=== PATIENT | female | born 1935 | race Caucasian/White ===

== ENCOUNTER → 2017-07-28 | Outpatient (CLI) | payer MEDICARE, BC ==
--- NOTE | 2017-07-28 16:03 | XR ---
Lumbosacral spine HISTORY: Low back pain radiating down legs 5 views of the lumbosacral spine There is no spondylolysis. Lumbar vertebral bodies show preserved height. Anterolisthesis grade 1 L4- 5. Sclerosis present in the posterior elements lumbar spine compatible with facet arthropathy. Loss o f disc height present at the intervertebral levels. Multilevel vacuum phenomenon also present. Bone m ineralization is reduced. Atherosclerotic calcifications present within the abdominal aorta. IMPRESSION: Degenerative disc disease, facet arthropathy, osteopenia.
== END | disposition home or self-care (01) ==
LOC: RADXRMAIN 13:36
PROVIDERS: ATTEND Internal Medicine Geriatric Medicine
DX: M51.37 Other intervertebral disc degeneration, lumbosacral region (principal); M46.87 Other specified inflammatory spondylopathies, lumbosacral region; M85.88 Other specified disorders of bone density and structure, other site
CPT/HCPCS: 72110

== ENCOUNTER → 2017-08-05 | Outpatient (CLI) | payer MEDICARE, BC ==
--- NOTE | 2017-08-05 23:35 | MR ---
EXAMINATION TYPE: MR lumbar spine wo/w con DATE OF EXAM: 08/05/2017 COMPARISON: NONE HISTORY: 82-year-old female Spinal stenosis, Low back pain Technique: Multiplanar, multisequence images of the lumbar spine were obtained before and after admin istration of 7.5 mL intravenous Gadavist gadolinium contrast. FINDINGS: Vertebral body heights are preserved. Mild heterogeneity of marrow signal without bone marrow replace ment. There is hypertrophic facet arthropathy throughout and moderate to severe disc degenerative change as well characterized by disc desiccation, narrowing, and diffuse bulging. Vacuum phenomenon at L5-ches t, L2-L3, and within the lower thoracic spine as well. Ligamentum flavum thickening is also present as well as a component of mild congenital canal stenosis in the mid to lower lumbar spine with AP canal dimension of 1.2 cm. There is grade 1 anterolisthesis at L4-L5. At T11-T12, there is ligamentum flavum thickening and central disc extrusion with some inferior migra tion of disc material. This results in mild narrowing of the spinal canal with abutment and slight in dentation of the ventral cord. At T12-L1, there is broad-based posterior disc protrusion with ligamentum flavum thickening and promi nent dorsal epidural fat. Changes result in mild spinal canal stenosis with mild to moderate left and mild right neural foraminal stenosis. At L1-L2, no spinal canal or foraminal stenosis. At L2-L3, there is diffuse disc bulge with congenital canal narrowing, ligamentum flavum thickening, facet arthropathy, and prominent dorsal epidural fat. Changes result in moderate narrowing of the spi nal canal with mild bilateral neural foraminal stenosis. At L3-L4, there is diffuse disc bulge with hypertrophic facet arthropathy, ligamentum flavum thickeni ng, congenital canal narrowing, and diffuse disc bulging. Changes result in mild to moderate spinal c anal narrowing and minimal bilateral inferior neural foraminal stenosis. At L4-L5, there is hypertrophic facet arthropathy with ligamentum flavum thickening, disc bulge, and grade 1 anterolisthesis. This results in right lateral recess stenosis with a very tight space along the right L5 and additional right-sided cauda equina nerve roots. There is mild to moderate spinal ca nal stenosis with minimal bilateral inferior foraminal narrowing. At L5-S1, there is bulging disc with hypertrophic facet arthropathy and ligamentum flavum thickening. Changes involved in moderate left and [id number] right neuroforaminal stenosis. In combination with prominent dorsal epidural fat, there is moderate to severe narrowing of the thecal sac. No abnormal enhancement within the spinal canal. No prevertebral paravertebral soft tissue abnormality seen. IMPRESSION: 1. Moderate to severe multilevel degenerative disc disease with hypertrophic facet arthropathy and li gamentum flavum thickening. 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 2. Changes result in overall moderate spinal canal stenosis at L2-L3 and mild to moderate at L3-L4 an d L4-L5. At L5-S1, there is also prominent dorsal epidural fat causing moderate to severe narrowing o f the thecal sac. 3. Right lateral recess stenosis at L4-L5 impinging the traversing right L5 and other adjacent cauda equina nerve roots at this level. 4. Variable mild to moderate neuroforaminal stenoses as outlined above. 5. Additional prominent disc herniations at T11-T12 and T12-L1 mildly narrowing the spinal canal.
== END | disposition home or self-care (01) ==
LOC: RADMRIMAIN 18:28
PROVIDERS: ATTEND Internal Medicine Geriatric Medicine
DX: M48.061 Spinal stenosis, lumbar region without neurogenic claudication (principal); M51.25 Other intervertebral disc displacement, thoracolumbar region; M51.36 Other intervertebral disc degeneration, lumbar region; M46.96 Unspecified inflammatory spondylopathy, lumbar region; M43.16 Spondylolisthesis, lumbar region
CPT/HCPCS: 72158; A9581

== ENCOUNTER → 2018-01-19 | Outpatient (CLI) | payer MEDICARE, BC ==
[2018-01-19 14:54] LABS: Basophils # (A) 0.1 k/uL (0-0.2); Basophils % (A) 1 %; Eosinophils # (A) 0.2 k/uL (0-0.7); Eosinophils % (A) 2 %; HGB 14.4 gm/dL (11.4-16.0); Lymphocytes # (A) 2.6 k/uL (1.0-4.8); Lymphocytes % (A) 32 %; MCH 31.4 pg (25.0-35.0); MCHC 31.9 g/dL (31.0-37.0); MCV 98.4 fL (80.0-100.0); Mean Platelet Volume 6.7; Monocytes # (A) 0.6 k/uL (0-1.0); Monocytes % (A) 7 %; Neutrophils # (A) 4.6 k/uL (1.3-7.7); Neutrophils % (A) 57 %; Platelet Count 310 k/uL (150-450); RBC 4.58 m/uL (3.80-5.40); RDW 12.7 % (11.5-15.5); WBC 8.1 k/uL (3.8-10.6)
[2018-01-19 15:13] LABS: Calcium 9.7 mg/dL (8.4-10.2); Potassium 4.5 mmol/L (3.5-5.1)
[2018-01-19 15:23] LABS: Prothrombin Time 10.3 sec (9.0-12.0)
--- NOTE | 2018-01-19 15:25 | XR ---
EXAMINATION TYPE: XR chest 2V DATE OF EXAM: 01/19/2018 COMPARISON: NONE HISTORY: Preoperative evaluation. TECHNIQUE: Frontal and lateral views of the chest are obtained. FINDINGS: There is no focal air space opacity, pleural effusion, or pneumothorax seen. The cardiac silhouette size is upper limits of normal. The osseous structures are intact. Mild multilevel degen erative changes of the thoracic spine are noted. Mild degenerative changes of the glenohumeral joints and acromio clavicular joints are also seen. There is tortuosity of the descending thoracic aorta no stalin. Bilateral minimal apical pleural thickening. IMPRESSION: No acute cardiopulmonary process.
== END | disposition home or self-care (01) ==
LOC: LABPAT 14:21
PROVIDERS: ATTEND Orthopaedic Surgery Orthopaedic Surgery of the Spine
DX: Z01.818 Encounter for other preprocedural examination (principal); M48.07 Spinal stenosis, lumbosacral region; Z79.01 Long term (current) use of anticoagulants; Z01.812 Encounter for preprocedural laboratory examination
CPT/HCPCS: 36415; 71046; 80048; 85025; 85610; 85730; 87070

== ENCOUNTER → 2018-01-25 | Outpatient (CLI) | payer MEDICARE, BC | END | disposition home or self-care (01) | LOC: LABPAT 11:05 | PROVIDERS: ATTEND Orthopaedic Surgery Orthopaedic Surgery of the Spine | DX: Z01.812 Encounter for preprocedural laboratory examination (principal); M48.07 Spinal stenosis, lumbosacral region; Z79.01 Long term (current) use of anticoagulants | CPT/HCPCS: 36415; 86850; 86900; 86901 ==

== ENCOUNTER 2018-02-03 08:57 | Inpatient (IN) | payer MEDICARE, BC ==
[2018-02-02 09:29] VITALS: BMI 33.8
[~2018-02-03 08:57] MED LIST: BACITRACIN 50,000 UNIT, POLYMYXIN B 500,000 UNIT in SODIUM CHLORIDE 0.9% IRRIGATIO 1,00... IRRIGATION ONE; DEXAMETHASONE SOD PHOSPHATE 10 MG/ML 1 ML VIAL IV ONE; MORPHINE SULFATE 2 MG/ML SYRINGE IV PRN; ONDANSETRON 4 MG/2 ML VIAL IVP ONE; ONDANSETRON 4 MG/2 ML VIAL IVP PRN; ceFAZolin IN SWFI 2 GM/20 ML SYRINGE IVP ONE
[2018-02-03] MEDS ORDERED: LIDOCAINE 1% 20 ML VIAL (10MG/ML) FOR IV START INTRADERMA ONE (09:55)
[2018-02-03] MEDS: LACTATED RINGERS 1,000 ML IV SCH ×2 (09:55→21:57)
[2018-02-03] MEDS ORDERED: fentaNYL (PF) 50 MCG/ML 2 ML AMP ONE (12:33)
[2018-02-03] MEDS ORDERED: PROPOFOL 10 MG/ML 20 ML VIAL IV ONE (12:33)
[2018-02-03] MEDS ORDERED: SUCCINYLCHOLINE CHLORIDE 100 MG/5 ML SYR IV ONE (12:33)
[2018-02-03] MEDS ORDERED: PHENYLEPHRINE-0.9% NACL SYG 1 MG/10 ML SYRINGE ONE (12:33)
[2018-02-03] MEDS ORDERED: HEPARIN SODIUM,PORCINE 10,000 UNIT/ML 1 ML VIAL ONE (12:33)
[2018-02-03] MEDS ORDERED: SODIUM CHLORIDE 0.9% IRRIG 1,000 ML BTL IRRIGATION ONE (12:33)
[2018-02-03] MEDS ORDERED: MIDAZOLAM 2 MG/2 ML VIAL ONE (12:33)
[2018-02-03] MEDS ORDERED: ePHEDrine SULFATE/0.9% NACL/PF 50 MG/5 ML SYRINGE IV ONE (12:33)
[2018-02-03] MEDS ORDERED: LIDOCAINE 1% INJ 10MG/ML (20 ML MDV) ONE (12:33)
[2018-02-03] MEDS ORDERED: LIDOCAINE 0.5% (PF) 5 MG/ML (50 ML SDV) SQ ONE (12:55)
[2018-02-03] MEDS ORDERED: GELATIN SPONGE,ABSORB (LARGE) 1 EACH SPONGE TOPICAL ONE (12:55)
[2018-02-03] MEDS ORDERED: THROMBIN (BOVINE) 5,000 UNIT VIAL TOPICAL ONE (12:55)
[2018-02-03] MEDS ORDERED: LACTATED RINGERS 1,000 ML IV ONE ×2 (14:07→15:26)
[2018-02-03] MEDS ORDERED: ALPRAZolam 0.25 MG TAB PO PRN (16:14)
[2018-02-03] MEDS ORDERED: BACLOFEN 10 MG TAB PO PRN (16:14)
[2018-02-03] MEDS ORDERED: TEMAZEPAM 15 MG CAP PO PRN (16:14)
[2018-02-03] MEDS: HYDROmorphone 0.5 MG/0.5 ML SYRINGE IVP PRN ×4 (16:14→22:03)
[2018-02-03] MEDS ORDERED: MAGNESIUM HYDROXIDE 2,400 MG/10 ML CUP PO PRN (16:15)
[2018-02-03] MEDS ORDERED: BENZOCAINE/MENTHOL LOZENG 1 EACH LOZENGE MUCOUS MEM PRN (16:15)
[2018-02-03] MEDS ORDERED: HYDROmorphone 0.5 MG/0.5 ML SYRINGE IVP PRN (16:15)
[2018-02-03] MEDS ORDERED: ONDANSETRON 4 MG/2 ML VIAL IVP PRN (16:16)
[2018-02-03] MEDS ORDERED: diphenhydrAMINE 50 MG/ML 1 ML VIAL IVP ONE (16:26)
--- NOTE | 2018-02-03 16:28 | P.OP ---
Date of Procedure: 02/03/18 Preoperative Diagnosis: Spondylolisthesis L4 5, spinal stenosis L4 5 L5-S1, degenerative disc disease, neurogenic claudication, lower extremity radiculopathy, low back pain Postoperative Diagnosis: Same Anesthesia: GETA Pathology: none sent Condition: stable Disposition: PACU Description of Procedure: DESCRIPTION OF PROCEDURE(S): BRIEF OPERATIVE NOTE Preoperative Diagnosis: Postoperative Diagnosis: Procedure: Laminectomy and decompression L4 5 L5-S1 Minimally invasive Posterior lateral decompression and fusion with facet fusion L4 5 L5-S1 Local autogenous bone grafting Harvesting of bone marrow aspirate for supplementation of the local autogenous bone graft and bone graft extenders Use of Cell Saver Use of bone graft extenders Surgeon: Dr. Todd Senior It Specialist: Terry BOWEN who is present throughout the entire the case persistence during positioning, dissection, exposure, visualization, and all crucial elements of the case as well as closure. Anesthesia: General anesthesia Estimated blood loss:Approximately 450 mL with 145 given back through Cell Saver Complications: None apparent Components implanted: K2 minimally invasive [place] pedicle screws with 6.5 mm screws and 2 rods with 1 osteogram amp sponge and DBX bone fibers to supplemental local autogenous and bone marrow aspirate Disposition: To recovery room in good stable condition. OPERATIVE INDICATIONS The patient has had long-standing issues in their lower back and lower extremities. she is found have spondylolisthesis with severe spinal stenosis L4 5 and L5-S1 with significant degenerative disc disease facet arthrosis. These findings correlated well with her low back and lower extremity symptoms. She is having worsening of her symptoms despite aggressive conservative care. The patient has been through conservative treatment. We discussed various treatment options including surgery, and the patient wishes to proceed with surgery We discussed the risk, patient's alternatives and benefits of surgery including but not limited to, risk of bleeding risk of infection, risk of need for further surgery, risk of decreased, loss of motion, muscle function, malunion nonunion, hardware failure, nerve damage, paralysis, heart attack, blindness and . OPERATIVE SUMMARY After discussing all the risks, patient alternatives and benefits at length, the patient elected to proceed with surgical intervention, signed informed consent, and presented for their procedure. The patient was seen and examined in the preoperative holding area and the surgical site was marked. The patient was given antibiotics and brought to the operating room. The patient was sedated and intubated by anesthesia in standard fashion. The patient was positioned on to the operating room table in a prone position on the appropriate frame which was well-padded and well molded. We were careful to pad any bony prominences and pressure points. We were careful to maintain the patient's cervical spine and good neutral alignment and position throughout. The patient was prepped and draped in a normal standard fashion. An appropriate timeout and keystone protocol performed. We were able to proceed with the surgery. The local wound area was infiltrated with local anesthetic. I was able utilize C-arm guidance to establish appropriate position over the pedicles bilaterally at the appropriate levels at L4-L5 and S1 . With the appropriate levels confirmed was able to make small stab incisions over the appropriate pedicle sites bilaterally. Utilizing C-arm in his house able to establish a Jamshidi needle over the lateral aspect of the pedicle and advanced the trocar into the pedicle being careful not to breech superiorly inferiorly medially or laterally. Position was confirmed regularly with AP and lateral images on C-arm. at L4 on the right I aspirated bone marrow aspirate approximately 20 mL to supplement the bone graft later in the case. I was able to establish the trocar into the pedicle appropriately into the posterior aspect of the vertebral body bilaterally at the appropriate levels. This was done at each of the pedicle positions and each of the vertebrae. I was able place the guidewire into the trocar and into the vertebral body appropriately under C-arm guidance. Dissection was taken down over the wire to the appropriate starting position for the screw placed. The appropriate length screw was chosen, threaded over the guidewire and screwed appropriately into the pedicle and vertebral body under C-arm guidance in excellent alignment and position with good bony purchase. This is done at each of the screw sites at the appropriate levels at L4-L5 and S1 . the screw at L5 on the right showed some nerve stimulation while we're testing the screws with a name neuro monitor. I was able to visually inspect the screw and I did not see any breech. I removed the screw in the screw hole itself seemed to be intact. Despite this however the screw was getting stimulation and he decided to remove the L5 screw on the right. I feel that there is good stability with the remainder the construct for her fusion procedure with the screws at L4 bilaterally L5-S1 left and S1 bilaterally. With the screws intact I extended the incision to connect the screw hole sites on the most symptomatic side on the right . I dissected down to establish access over the pars and lamina to the base of the spinous process. I was able to expose the facet joint. The capsule the facet was taken down and showed some facet arthrosis at the joint. I was able to use a combination of curettes and Kerrison rongeurs and a high-speed drill to take down the facet joint and do a facetectomy. Partial laminectomy was also performed. I was able get excellent foraminal decompression and central decompression with undermining across midline to perform a laminectomy centrally and contralaterally. As able get good central decompression. this was done at L4 5 and L5-S1. The ligamentum flavum was taken down to further decompress centrally and at bilateral neural foramen. I was able to expose the disc space and visualize the traversing nerve root. I was able get good decompression L4 5 and L5-S1. It was difficult to access the disc space at both L4 5 and L5-S1. There is some anatomic changes which made it difficult to access the disc and I felt that the dural was somewhat friable and somewhat vulnerable and I felt that pursuing the interbody procedure May but the dura and other neurologic structures at risk. I decided to forego the interbody device. This was done at L4 5 and L5-S1. The wound was copiously irrigated and suctioned dry. There is no evidence of any dural tear or leak. I With the hardware intact, intraoperative C-arm imaging was again taken which showed good alignment and position of the hardware at the appropriate levels at L4-L5 and S1 . We were then able to measure, contour and place the rods and appropriate hardware bilaterally. I was able to place capcrews, tighten them down, and torque them with the torque screwdriver appropriately. With this intact I was able to place the local autogenous bone graft with additional bone graft enhancer as necessary into the posterior lateral gutters over the decorticated transverse processes and the decorticated facet joints on the left . The remainder of the bone graft was placed over the facet joint on the contralateral side after taking down the facet joint capsule. With the bone graft intact, a stable construct, and good decompression at the appropriate levels, we were able to proceed with closure. Good hemostasis was maintained. There is no evidence of dural tear or leak. The fascia was closed for a watertight closure. he subcuticular tissue was closed with absorbable suture. The wound was cleaned and dried and dressed with the appropriate dressing. The drapes were broken down. The patient was gently rolled back onto their hospital bed being careful to maintain their cervical spine and good neutral alignment and position. They were woken up by anesthesia, extubated, and brought to the recovery room in good stable condition. The patient will be admitted to the hospital for appropriate postoperative care , medical management and monitoring. We will continue to follow them closely about the postoperative course.
--- NOTE | 2018-02-03 16:46 | FL ---
Fluoroscopy History: Minimally invasive lumbar fusion Minimally invasive lumbar fusion 1 min 31 sec fluoro
[2018-02-03] MEDS ORDERED: MIDAZOLAM 2 MG/2 ML VIAL IVP ONE (17:00)
[2018-02-03] MEDS: SODIUM CHLORIDE 0.9% 1,000 ML IV SCH (18:14)
[2018-02-03] MEDS: HYDROcodone/APAP 5-325MG 1 EACH TAB PO PRN (19:47)
[2018-02-03] MEDS: ATORVASTATIN 40 MG TAB PO SCH (21:43)
[2018-02-03] MEDS: ceFAZolin IN SWFI 2 GM/20 ML SYRINGE IVP SCH (21:43)
[2018-02-04] MEDS ORDERED: HYDROcodone/APAP 5-325MG 1 EACH TAB ONE ×2 (01:27)
[2018-02-04] MEDS ORDERED: HYDROmorphone 0.5 MG/0.5 ML SYRINGE ONE (01:27)
[2018-02-04] MEDS: ceFAZolin IN SWFI 2 GM/20 ML SYRINGE IVP SCH (06:05)
[2018-02-04] MEDS: SODIUM CHLORIDE 0.9% 1,000 ML IV SCH ×2 (06:06→20:46)
[2018-02-04] MEDS: HYDROmorphone 0.5 MG/0.5 ML SYRINGE IVP PRN ×3 (06:09→21:30)
[2018-02-04 07:38] LABS: Calcium 8.3 mg/dL (8.4-10.2); Potassium 4.1 mmol/L (3.5-5.1)
[2018-02-04 07:41] LABS: Basophils # (A) 0.1 k/uL (0-0.2); Basophils % (A) 1 %; Eosinophils # (A) 0.1 k/uL (0-0.7); Eosinophils % (A) 1 %; HCT 35.9 % (34.0-46.0); Lymphocytes % (A) 9 %; MCHC 31.9 g/dL (31.0-37.0); MCV 100.5 fL (80.0-100.0); Mean Platelet Volume 6.7; Monocytes # (A) 0.9 k/uL (0-1.0); Monocytes % (A) 8 %; Neutrophils # (A) 9.4 k/uL (1.3-7.7); Neutrophils % (A) 82 %; Platelet Count 187 k/uL (150-450); RBC 3.57 m/uL (3.80-5.40); WBC 11.5 k/uL (3.8-10.6)
[2018-02-04 07:42] LABS: HGB 11.4 gm/dL (11.4-16.0)
[2018-02-04] MEDS: ASPIRIN 81 MG PO SCH (08:41)
[2018-02-04] MEDS: SENNOSIDES-DOCUSATE SODIUM 1 EACH TAB PO SCH (08:41)
[2018-02-04] MEDS ORDERED: amLODIPine 5 MG TAB PO SCH (09:00)
[2018-02-04] MEDS ORDERED: LOSARTAN 50 MG TAB PO SCH (09:00)
[2018-02-04] MEDS ORDERED: NON-FORMULARY DRUG (Ubidecarenone [Co Q-10] 200 MG) PO SCH (09:00)
[2018-02-04] MEDS ORDERED: ATENOLOL 50 MG TAB PO SCH (09:00)
[2018-02-04] MEDS: HYDROcodone/APAP 5-325MG 1 EACH TAB PO PRN ×3 (09:35→19:05)
[2018-02-04] MEDS ORDERED: HYDROmorphone 2 MG TAB PO PRN (10:28)
[2018-02-04] MEDS ORDERED: HYDROmorphone 4 MG TABLET PO PRN (10:29)
--- NOTE | 2018-02-04 14:13 | P.CONS ---
History of Present Illness - Reason for Consult Consult date: 02/04/18 Medical management - History of Present Illness This is an 82-year-old female patient of Dr. Ruiz with past medical history for hyperlipidemia, hypertension, osteoarthritis generalized, generalized anxiety disorder spinal stenosis. She has dealt with chronic pain from her lumbar spine for many years and underwent some injections although this was limited due to spurs. Patient has been admitted to the hospital status post laminectomy and decompression L4 5, L5-S1 for spondylolisthesis L4 5 , spinal stenosis L4 5 L5-S1, degenerative disc disease, neurogenic claudication , lower extremity radiculopathy, low back pain. Patient has been afebrile. Vital signs her been stable. Hemoglobin is 11.4. Patient has had no postop complications. Patient is complaining of a lot of pain that's worse today from yesterday. Pain is mostly in the front of her thighs and her lower back. She also complains of a new pain that is in the right lateral lower leg is a burning type pain. She denies any pain in her groin. No pain in the bottom of her feet. She has been to the edge of the bed with PT and sat in a chair. She is also had Grigsby catheter removed and voided in the bathroom. She is passing gas without a bowel movement. She is planning to go to [facility] for rehab. Patient is using incentive spirometry. Review of Systems All systems: negative Constitutional: Denies chills, Denies fever Eyes: denies blurred vision, denies pain Ears, nose, mouth and throat: Denies headache, Denies sore throat Cardiovascular: Denies chest pain, Denies shortness of breath Respiratory: Denies cough Gastrointestinal: Denies abdominal pain, Denies diarrhea, Denies nausea, Denies vomiting Genitourinary: Denies dysuria, Denies hematuria Musculoskeletal: Reports low back pain, Denies myalgias Integumentary: Denies pruritus, Denies rash Neurological: Denies numbness, Denies weakness Psychiatric: Denies anxiety, Denies depression Endocrine: Denies fatigue, Denies weight change Past Medical History Past Medical History: Hyperlipidemia, Hypertension, Osteoarthritis (OA) Additional Past Medical History / Comment(s): spinal stenosis History of Any Multi-Drug Resistant Organisms: None Reported Past Surgical History: Appendectomy, Hysterectomy, Joint Replacement Additional Past Surgical History / Comment(s): rectocele,cystocele, [place] knee replacement, [place] cataract surgery with lens implants, Lumbar laminectomy, colonoscopy was less than 5 years ago with no polyps. Additional Past Anesthesia/Blood Transfusion Reaction / Comm: "takes a little while to come out of anesthesia" Past Psychological History: Anxiety Smoking Status: Never smoker Past Alcohol Use History: Rare Additional Past Alcohol Use History / Comment(s): Patient is a lifelong nonsmoker. No alcohol use or abuse. She lives in senior housing. Past Drug Use History: None Reported - Past Family History Mother Additional Family Medical History / Comment(s): Other at age 56 from a heart aneurysm Father Family Medical History: Cancer Additional Family Medical History / Comment(s): Father at age 63 from liver cancer. Brother(s) Family Medical History: Coronary Artery Disease (CAD) Additional Family Medical History / Comment(s): The patient has a brother that at age 37 from coronary artery disease or cardiac problem. She has 1 brother that at 3 years of age. Sister(s) Family Medical History: Coronary Artery Disease (CAD) Additional Family Medical History / Comment(s): Patient has one sister that is with history of coronary artery disease and CABG. One sister is alive at age 95 with history of coronary artery disease and CABG. Son(s) Additional Family Medical History / Comment(s): Patient has 2 sons and 1 daughter with history of hypertension. Medications and Allergies Home Medications Medication Instructions Recorded Confirmed Type ALPRAZolam [Xanax] 0.25 mg PO BID PRN 02/02/18 02/03/18 History Acetaminophen [Tylenol Arthritis] 650 mg PO Q8H 02/02/18 02/03/18 History Aspirin [Adult Low Dose Aspirin EC] 81 mg PO DAILY 02/02/18 02/03/18 History Atenolol [Tenormin] 50 mg PO DAILY 02/02/18 02/03/18 History Baclofen [Lioresal] 5 mg PO HS PRN 02/02/18 02/03/18 History Losartan Potassium [Cozaar] 100 mg PO DAILY 02/02/18 02/03/18 History Rosuvastatin [Crestor] 20 mg PO MOTUWETHFR 02/02/18 02/03/18 History Temazepam [Restoril] 15 mg PO HS PRN 02/02/18 02/03/18 History Ubidecarenone [Co Q-10] 200 mg PO DAILY 02/02/18 02/03/18 History amLODIPine [Norvasc] 5 mg PO DAILY 02/02/18 02/03/18 History traMADol HCl [Ultram] 50 mg PO Q8HR PRN 02/02/18 02/03/18 History Allergies Allergy/AdvReac Type Severity Reaction Status Date / Time perfume Allergy Dyspnea Verified 02/03/18 16:42 Physical Exam Vitals: Vital Signs Temp Pulse Resp BP Pulse Ox 02/04/18 05:40 98.1 F 86 16 132/65 96 02/03/18 23:00 98.1 F 74 16 133/73 97 02/03/18 19:04 61 16 143/64 91 L 02/03/18 18:15 64 140/55 02/03/18 18:00 196/84 02/03/18 17:45 97.2 F L 69 18 145/73 94 L 02/03/18 17:20 64 16 118/69 100 02/03/18 17:00 63 16 122/70 100 02/03/18 16:41 64 16 141/67 99 02/03/18 16:26 67 16 145/66 98 02/03/18 16:11 97.6 F 83 16 142/73 97 Intake and Output 02/03/18 02/04/18 02/04/18 22:59 06:59 14:59 Intake Total 770 600 Output Total 750 525 Balance 20 600 -525 Intake: IV 650 600 Sodium Chloride 0.9% 1, 600 000 ml @ 75 mls/hr IV . [id number] [facility] Rx#:[id number] Oral 120 Output: Urine 250 525 Uretheral (Grigsby) 525 Estimated Blood Loss 500 Other: Voiding Method Indwelling Catheter Indwelling Catheter Weight 83.9 kg Gen: This is a an 82-year-old female. She is sitting up in bed and appears to be in mild discomfort. She does verbalize being uncomfortable and unable to move in bed to make her discomfort improved. HEENT: Head is atraumatic, normocephalic. Pupils equal, round. Sclerae is anicteric. NECK: Supple. No JVD. No lymphadenopathy. No thyromegaly. LUNGS: Clear to auscultation. No wheezes or rhonchi. No intercostal retractions. HEART: Regular rate and rhythm. No murmur. ABDOMEN: Soft. Bowel sounds are present. No masses. No tenderness. EXTREMITIES: No pedal edema. No calf tenderness. NEUROLOGICAL: Patient is awake, alert and oriented x3. Cranial nerves 2 through 12 are grossly intact. - Constitutional General appearance: average body habitus, cooperative, no acute distress - Neck Neck: no lymphadenopathy, normal ROM, no stridor, no thyromegaly - Respiratory Respiratory: bilateral: CTA, negative: rales, rhonchi, wheezing - Cardiovascular Rhythm: regular Heart sounds: normal: S1, S2 - Gastrointestinal General gastrointestinal: normal bowel sounds, no organomegaly, soft, no tenderness - Integumentary Integumentary: no cellulitis, normal turgor, no rash - Neurologic Neurologic: CNII-XII intact - Psychiatric Psychiatric: A&O x's 3, appropriate affect, intact judgment & insight Results CBC & Chem 7: 02/04/18 06:42 02/04/18 06:42 Labs: Abnormal Lab Results - Last 24 Hours (Table) 02/04/18 02/04/18 Range/Units 06:42 06:42 WBC 11.5 H (3.8-10.6) k/uL RBC 3.57 L (3.80-5.40) m/uL MCV 100.5 H (80.0-100.0) fL Neutrophils # 9.4 H (1.3-7.7) k/uL Calcium 8.3 L (8.4-10.2) mg/dL Assessment and Plan Plan: 1. Spinal stenosis status post lumbar laminectomy. Continue current pain management per orthopedics 9, PT and OT. Incentive spirometry to reduce incidence of atelectasis and hospital-acquired pneumonia. 2. Hypertension. Continue Norvasc 5 mg at bedtime, atenolol 50 mg at bedtime, losartan 100 mg at bedtime. 3. Hyperlipidemia. Continue atorvastatin Thursday through Thursday. 4. Generalized anxiety disorder. Continue Xanax or 0.25 mg twice daily as needed. 5. Generalized osteoarthritis, stable. Discharge plan: Subacute rehab at [facility] Impression and plan of care have been directed as dictated by the signing physician. Zonia Lopez nurse practitioner acting as scribe for signing physician.
[2018-02-04] MEDS: CYCLOBENZAPRINE 10 MG TAB PO PRN (14:17)
--- NOTE | 2018-02-04 15:37 | P.PN ---
Progress Note - Text Progress Note Date: 02/04/18 Postoperative day #1 Patient is seen and examined today at bedside. The patient has some pain around the surgical site as expected. Pain is being controlled with medication. She has been able to be out of bed and she is tolerating her diet thus far. She is complaining of significant pain around her back. She does have some new pain over her anterior lateral aspect of her right lower leg. She does not have weakness. Physical Exam Afebrile with stable vital signs Abdomen is soft nontender. Chest has good excursion deep and space expiration The incision site is clean dry and intact. No erythema there is no purulence. There was some drainage overnight but it appears to be stabilized. Extremities have not had neurologic change from prior to surgery. She has sustained dorsal flexion plantar flexion and EHL intact Calves and thighs were soft nontender without evidence of DVT. Assessment/Plan Postoperative day #1 status post decompression and fusion at L4-L5 and S1 for her spinal stenosis and spondylolisthesis Advanced age requiring further rehabilitation and mobilization Patient is progressing as expected from the surgery. Given her advanced age she will likely be a bit slower in her recovery and will require retirement facility post hospitalization as she lives alone and requires further attention for her safety and mobilization. She has some new pain over her right anterior lateral aspect of her right lower leg. There was some irritation of that nerve in the course of the surgery and I removed the L5 screw on the right to help account for this. I believe this will likely be transient and we will follow this with expectant management. Her surgical site appears to be stable. We will continue to increase the patient's mobilization with therapy. We will continue pain control with oral or IV medications. We'll continue to follow patient closely.
[2018-02-04] MEDS: traMADol 50 MG TAB PO PRN ×2 (15:53→23:38)
[2018-02-04] MEDS: ATORVASTATIN 40 MG TAB PO SCH (20:46)
[2018-02-04] MEDS: amLODIPine 5 MG TAB PO SCH (20:46)
[2018-02-04] MEDS: LOSARTAN 50 MG TAB PO SCH (20:46)
[2018-02-04] MEDS: ATENOLOL 50 MG TAB PO SCH (20:46)
[2018-02-05] MEDS: HYDROcodone/APAP 5-325MG 1 EACH TAB PO PRN ×5 (01:44→19:07)
[2018-02-05] MEDS: CYCLOBENZAPRINE 10 MG TAB PO PRN ×2 (02:40→15:53)
[2018-02-05] MEDS: HYDROmorphone 0.5 MG/0.5 ML SYRINGE IVP PRN ×3 (06:15→23:24)
[2018-02-05] MEDS: SODIUM CHLORIDE 0.9% 1,000 ML IV SCH ×2 (06:18→16:48)
[2018-02-05] MEDS: traMADol 50 MG TAB PO PRN ×2 (08:23→16:42)
[2018-02-05] MEDS: ASPIRIN 81 MG PO SCH (08:24)
[2018-02-05] MEDS: SENNOSIDES-DOCUSATE SODIUM 1 EACH TAB PO SCH (08:24)
--- NOTE | 2018-02-05 08:37 | P.PN ---
Progress Note - Text Progress Note Date: 02/05/18 Orthopedic Spine Patient is a pleasant 82-year-old female who is seen and examined at the bedside following posterior lateral decompression and fusion performed Thursday. Patient states they are doing ok postsurgically. He continues to have significant pain and soreness at surgical sites. Her pain yesterday was 10 /10. Her pain is currently 7/10. She has been getting out of bed with assistance to the restroom. She continues to have pain over the right lower extremity as well that has been acute in onset following surgical intervention. Currently does not complain of nausea, vomiting, fever, or chills. Patient states pain has been adequately controlled. Patient is eating and voiding freely without difficulty. We are currently planning for discharge to rehabilitation facility as early as tomorrow, 02/06/2018 where this coming 02/08/2018. Physical Exam Lumbar Fusion: Status post surgical day number 2 Patient is awake, alert, and oriented 3 Vital signs stable Good chest excursion with deep inspiration and expiration Abdomen soft nontender Dorsiflexion, plantarflexion, and extensor hallucis longus positive sustained bilaterally No signs or symptoms of DVT; no calf pain; pneumatic cuffs not currently intact bilateral lower extremities Dressing is dry and intact with some dried blood and was previously reinforced; no erythema, purulence, or signs of infection Neurovascularly intact bilaterally lower extremities Assessment: Minimally invasive posterior lateral decompression and fusion L4-5 and L5-S1 Low back pain Right lower extremity radiculopathy Plan: 1. Ambulate as tolerated; work with Physical Therapy to increase mobilization 2. Continue pain control with IV and oral medications 3. Dressing will be changed to [place] and Tegaderm patient up with therapy or sitting at the bedside 4. Medical management can continue to manage patient for patient's other medical issues 5. We will continue to follow the patient closely; patient will be planned to be discharged to a [facility] facility at the time of discharge. Depending on the patient's progress, this may happen as early as tomorrow, 02/06 or this coming 02/08/2018. 6. Patient can follow-up with Terry Stern PA-C or Dr. Joey Todd at [facility] in 2-3 weeks following discharge
--- NOTE | 2018-02-05 13:21 | P.PN ---
Subjective Progress Note Date: 02/05/18 This is an 82-year-old female patient of Dr. Ruiz with past medical history for hyperlipidemia, hypertension, osteoarthritis generalized, generalized anxiety disorder spinal stenosis. She has dealt with chronic pain from her lumbar spine for many years and underwent some injections although this was limited due to spurs. Patient has been admitted to the hospital status post laminectomy and decompression L4 5, L5-S1 for spondylolisthesis L4 5 , spinal stenosis L4 5 L5-S1, degenerative disc disease, neurogenic claudication , lower extremity radiculopathy, low back pain. Patient has been afebrile. Vital signs her been stable. Hemoglobin is 11.4. Patient has had no postop complications. Patient is complaining of a lot of pain that's worse today from yesterday. Pain is mostly in the front of her thighs and her lower back. She also complains of a new pain that is in the right lateral lower leg is a burning type pain. She denies any pain in her groin. No pain in the bottom of her feet. She has been to the edge of the bed with PT and sat in a chair. She is also had Grigsby catheter removed and voided in the bathroom. She is passing gas without a bowel movement. She is planning to go to [facility] for rehab. Patient is using incentive spirometry. 02/05: Patient is laying down in bed she continues to have pain in her lower back , she denies any leg pain, she has no numbness around the groin area, she continues to struggle with ambulation to the bathroom and she requires 2 people assist. Objective - Vital Signs Vital signs: Vital Signs Temp 98.5 F 02/05/18 06:18 Pulse 90 02/05/18 06:18 Resp 16 02/05/18 06:18 BP 123/58 02/05/18 06:18 Pulse Ox 92 L 02/05/18 06:18 Intake & Output 02/04/18 02/05/18 02/05/18 18:59 06:59 18:59 Intake Total 1740 Output Total 805 1100 Balance -805 640 Weight 83.9 kg 83.9 kg Intake: IV 900 Sodium Chloride 0.9% 1, 900 000 ml @ 75 mls/hr IV . [id number] [facility] Rx#:[id number] Oral 840 Output: Urine 805 1100 Uretheral (Grigsby) 525 Other: Voiding Method Toilet Toilet # Voids 1 - Exam - Constitutional General appearance: average body habitus, cooperative, no acute distress - Neck Neck: no lymphadenopathy, normal ROM, no stridor, no thyromegaly - Respiratory Respiratory: bilateral: CTA, negative: rales, rhonchi, wheezing - Cardiovascular Rhythm: regular Heart sounds: normal: S1, S2 - Gastrointestinal General gastrointestinal: normal bowel sounds, no organomegaly, soft, no tenderness - Integumentary Integumentary: no cellulitis, normal turgor, no rash - Neurologic Neurologic: CNII-XII intact - Psychiatric Psychiatric: A&O x's 3, appropriate affect, intact judgment & insight - Labs CBC & Chem 7: 02/04/18 06:42 02/04/18 06:42 Assessment and Plan Assessment: Assessment and Plan Plan: 1. Spinal stenosis status post lumbar laminectomy. Continue current pain management per orthopedics, PT and OT. Incentive spirometry to reduce incidence of atelectasis and hospital-acquired pneumonia, continue current pain management as outlined by orthopedic surgery and increase ambulation. 2. Hypertension. Continue Norvasc 5 mg at bedtime, atenolol 50 mg at bedtime, losartan 100 mg at bedtime. 3. Hyperlipidemia. Continue atorvastatin Thursday through Thursday. 4. Generalized anxiety disorder. Continue Xanax or 0.25 mg twice daily as needed. 5. Generalized osteoarthritis, stable. Discharge plan: Subacute rehab at [facility] or [facility]
[2018-02-05] MEDS: amLODIPine 5 MG TAB PO SCH (21:35)
[2018-02-05] MEDS: ATENOLOL 50 MG TAB PO SCH (21:35)
[2018-02-05] MEDS: ATORVASTATIN 40 MG TAB PO SCH (21:35)
[2018-02-05] MEDS: LOSARTAN 50 MG TAB PO SCH (21:35)
[2018-02-06] MEDS: HYDROcodone/APAP 5-325MG 1 EACH TAB PO PRN ×5 (03:28→20:05)
[2018-02-06 07:26] LABS: Basophils % (A) 0 %; Eosinophils # (A) 0.1 k/uL (0-0.7); Eosinophils % (A) 1 %; HCT 33.8 % (34.0-46.0); HGB 10.7 gm/dL (11.4-16.0); Lymphocytes # (A) 1.2 k/uL (1.0-4.8); Lymphocytes % (A) 8 %; MCH 31.9 pg (25.0-35.0); MCHC 31.7 g/dL (31.0-37.0); MCV 100.6 fL (80.0-100.0); Mean Platelet Volume 7.3; Monocytes # (A) 1.2 k/uL (0-1.0); Monocytes % (A) 8 %; Neutrophils % (A) 81 %; Platelet Count 193 k/uL (150-450); RBC 3.36 m/uL (3.80-5.40); WBC 14.7 k/uL (3.8-10.6)
[2018-02-06 07:40] LABS: ALT 29 U/L (9-52); AST 28 U/L (14-36); Albumin 2.6 g/dL (3.5-5.0); Alkaline Phosphatase 45 U/L (38-126); Anion Gap 9 mmol/L; Blood Urea Nitrogen 10 mg/dL (7-17); Calcium 8.5 mg/dL (8.4-10.2); Carbon Dioxide 24 mmol/L (22-30); Chloride 105 mmol/L (98-107); Glucose 91 mg/dL (74-99); Potassium 3.8 mmol/L (3.5-5.1); Sodium 138 mmol/L (137-145); Total Bilirubin 1.3 mg/dL (0.2-1.3); Total Protein 4.8 g/dL (6.3-8.2)
[2018-02-06] MEDS: SENNOSIDES-DOCUSATE SODIUM 1 EACH TAB PO SCH (07:49)
[2018-02-06] MEDS: SODIUM CHLORIDE 0.9% 1,000 ML IV SCH (07:50)
[2018-02-06] MEDS: ASPIRIN 81 MG PO SCH (07:50)
--- NOTE | 2018-02-06 09:39 | P.PN ---
Progress Note - Text Progress Note Date: 02/06/18 Postoperative day #3 Patient is seen and examined today at bedside. The patient has some pain around the surgical site as expected. Pain is being controlled with medication. She still having significant difficulty with changing positions getting in and out of bed. When she is up on her feet she is moving adequately. She is voiding. Freely. She has limited diet. Her right leg is doing somewhat better Physical Exam Afebrile with stable vital signs Abdomen is soft nontender. Chest has good excursion deep and space expiration The incision site is clean dry and intact. No erythema there is no purulence. Her back looks good without any evidence of infection Extremities have not had neurologic change from prior to surgery. She has sustained dorsal flexion plantarflexion and EHL intact Calves and thighs were soft nontender without evidence of DVT. Assessment/Plan Postoperative day #3 status post decompression and fusion of L4 5 and L5-S1 for her spondylolisthesis with spinal stenosis Patient is progressing somewhat slowly as expected from the surgery, given her advanced age and deconditioning. She is having difficulty with changing positions and transitioning in and out of bed but is doing okay when she is up and moving. We will continue to increase the patient's mobilization with therapy. Her wound sites. Be healing well and her legs are making some improvement. I do not think she is ready to transfer to fpc today as she still requiring significant assistance here in the hospital as well as occasional IV pain medications. I think it is likely that she'll be ready for f[facility] facility on Thursday. We will continue pain control with oral or IV medications. We'll continue to follow patient closely.
[2018-02-06] MEDS: traMADol 50 MG TAB PO PRN (13:02)
--- NOTE | 2018-02-06 17:47 | P.PN ---
Subjective Progress Note Date: 02/06/18 Principal diagnosis: Spinal stenosis surgery requiring laminectomy decompression This is an 82-year-old female patient of Dr. Ruiz with past medical history for hyperlipidemia, hypertension, osteoarthritis generalized, generalized anxiety disorder spinal stenosis. She has dealt with chronic pain from her lumbar spine for many years and underwent some injections although this was limited due to spurs. Patient has been admitted to the hospital status post laminectomy and decompression L4 5, L5-S1 for spondylolisthesis L4 5 , spinal stenosis L4 5 L5-S1, degenerative disc disease, neurogenic claudication , lower extremity radiculopathy, low back pain. Patient has been afebrile. Vital signs her been stable. Hemoglobin is 11.4. Patient has had no postop complications. Patient is complaining of a lot of pain that's worse today from yesterday. Pain is mostly in the front of her thighs and her lower back. She also complains of a new pain that is in the right lateral lower leg is a burning type pain. She denies any pain in her groin. No pain in the bottom of her feet. She has been to the edge of the bed with PT and sat in a chair. She is also had Gir[place]by catheter removed and voided in the bathroom. She is passing gas without a bowel movement. She is planning to go to [facility] for rehab. Patient is using incentive spirometry. 02/05: Patient is laying down in bed she continues to have pain in her lower back , she denies any leg pain, she has no numbness around the groin area, she continues to struggle with ambulation to the bathroom and she requires 2 people assist. 02/06, patient is comfortable however continues to have pain lower back, denies numbness in the legs, patient still requires Dilaudid and [place], Toradol to be added, [facility] is anticipated for discharge on Thursday. Denies any cardiac or pulmonary complaints, no hematuria Objective - Vital Signs Vital signs: Vital Signs Temp 98.7 F 02/06/18 15:00 Pulse 87 02/06/18 15:57 Resp 16 02/06/18 15:57 BP 136/63 02/06/18 15:00 Pulse Ox 93 L 02/06/18 15:00 Intake & Output 02/05/18 02/06/18 02/06/18 18:59 06:59 18:59 Intake Total 1190 Balance 1190 Weight 83.9 kg 83.9 kg Intake: IV 600 Sodium Chloride 0.9% 1, 600 000 ml @ 75 mls/hr IV . [id number] [facility] Rx#:[id number] Oral 590 Other: Voiding Method Toilet Toilet Toilet # Voids 1 3 2 - Constitutional General appearance: Present: average body habitus, cooperative, no acute distress. Absent: disheveled, mild distress, morbidly obese, obese, severe distress, thin - EENT Eyes: Present: anicteric sclerae, EOMI, PERRLA, dentition normal, normal appearance ENT: Present: hearing grossly normal, NA/AT, normal oropharynx - Neck Neck: Present: normal ROM - Respiratory Respiratory: bilateral: CTA, negative: diminished, rales, prolonged expiration, prolonged inspiration - Cardiovascular Rhythm: regular Heart sounds: normal: S1, S2 Abnormal Heart Sounds: Absent: systolic murmur, diastolic murmur, rub, S3 Gallop , S4 Gallop, click, other - Gastrointestinal General gastrointestinal: Present: normal bowel sounds, soft - Integumentary Integumentary: Present: normal, normal turgor - Neurologic Neurologic: Present: CNII-XII intact - Musculoskeletal Musculoskeletal: Present: generalized weakness, strength equal bilaterally - Psychiatric Psychiatric: Present: A&O x's 3, intact judgment & insight - Labs CBC & Chem 7: 02/06/18 06:45 02/06/18 06:45 Labs: Abnormal Lab Results - Last 24 Hours (Table) 02/06/18 02/06/18 Range/Units 06:45 06:45 WBC 14.7 H (3.8-10.6) k/uL RBC 3.36 L (3.80-5.40) m/uL Hgb 10.7 L (11.4-16.0) gm/dL Hct 33.8 L (34.0-46.0) % MCV 100.6 H (80.0-100.0) fL Neutrophils # 12.0 H (1.3-7.7) k/uL Monocytes # 1.2 H (0-1.0) k/uL Total Protein 4.8 L (6.3-8.2) g/dL Albumin 2.6 L (3.5-5.0) g/dL Assessment and Plan Plan: 1. Spinal stenosis status post lumbar laminectomy. Continue current pain management per orthopedics, PT and OT. Incentive spirometry to reduce incidence of atelectasis and hospital-acquired pneumonia, continue current pain management as outlined by orthopedic surgery and increase ambulation. Uncontrolled pain today, add Toradol short-term IV. Anticipate we have to [facility] on Thursday 2. Hypertension. Continue Norvasc 5 mg at bedtime, atenolol 50 mg at bedtime, losartan 100 mg at bedtime. 3. Hyperlipidemia. Continue atorvastatin Thursday through Thursday. 4. Generalized anxiety disorder. Continue Xanax or 0.25 mg twice daily as needed. 5. Generalized osteoarthritis, stable. Discharge plan: Subacute rehab at [facility] or [facility]
[2018-02-06] MEDS: KETOROLAC 30 MG/ML 1 ML VIAL IVP SCH ×2 (18:04→23:45)
[2018-02-06] MEDS: LOSARTAN 50 MG TAB PO SCH (20:05)
[2018-02-06] MEDS: amLODIPine 5 MG TAB PO SCH (20:06)
[2018-02-06] MEDS: ATENOLOL 50 MG TAB PO SCH (21:08)
[2018-02-07] MEDS: HYDROcodone/APAP 5-325MG 1 EACH TAB PO PRN ×3 (04:04→20:22)
[2018-02-07] MEDS: KETOROLAC 30 MG/ML 1 ML VIAL IVP SCH ×3 (05:55→20:14)
[2018-02-07 07:29] LABS: Basophils # (A) 0.1 k/uL (0-0.2); Basophils % (A) 0 %; Eosinophils # (A) 0.4 k/uL (0-0.7); Eosinophils % (A) 4 %; HCT 33.4 % (34.0-46.0); HGB 10.6 gm/dL (11.4-16.0); Lymphocytes # (A) 1.3 k/uL (1.0-4.8); Lymphocytes % (A) 12 %; MCH 31.7 pg (25.0-35.0); MCHC 31.6 g/dL (31.0-37.0); MCV 100.3 fL (80.0-100.0); Monocytes # (A) 0.9 k/uL (0-1.0); Monocytes % (A) 8 %; Neutrophils % (A) 74 %; Platelet Count 242 k/uL (150-450); RBC 3.33 m/uL (3.80-5.40); RDW 13.1 % (11.5-15.5); WBC 10.8 k/uL (3.8-10.6)
[2018-02-07 07:37] LABS: Anion Gap 8 mmol/L; Blood Urea Nitrogen 10 mg/dL (7-17); Calcium 8.1 mg/dL (8.4-10.2); Carbon Dioxide 26 mmol/L (22-30); Chloride 107 mmol/L (98-107); Glucose 84 mg/dL (74-99); Potassium 3.8 mmol/L (3.5-5.1); Sodium 141 mmol/L (137-145)
[2018-02-07 07:57] LABS: Appearance,Urine Clear (Clear); Bilirubin,Urine Negative (Negative); Blood,Urine Negative (Negative); Color,Urine Light Yellow; Glucose,Urine (UA) Negative (Negative); Ketones,Urine Negative (Negative); Leukocyte Esterase,Urine Negative (Negative); Nitrite,Urine Negative (Negative); Protein,Urine Negative (Negative); Specific Gravity,Urine 1.008 (1.001-1.035); Urobilinogen,Urine <2.0 mg/dL (<2.0)
[2018-02-07] MEDS: SODIUM CHLORIDE 0.9% 1,000 ML IV SCH ×2 (08:23→17:47)
[2018-02-07] MEDS: SENNOSIDES-DOCUSATE SODIUM 1 EACH TAB PO SCH (08:23)
[2018-02-07] MEDS: ASPIRIN 81 MG PO SCH (08:23)
--- NOTE | 2018-02-07 10:16 | P.PN ---
Progress Note - Text Progress Note Date: 02/07/18 Postoperative day #4 Patient is seen and examined today at bedside. The patient has some pain around the surgical site as expected. Pain is being controlled with medication. She has made good improvement since yesterday. She is more mobile and able to sit up on her own to the side of the bed and roll over in her bed on her own. She is doing well when she gets up with standby assist. Overnight she did have some hallucinations but seems to be stabilizing now. She is appropriate currently. She still has some soreness at her right lower leg but is not complaining about it is much as she was before. Physical Exam Afebrile with stable vital signs Abdomen is soft nontender. Chest has good excursion deep and space expiration The incision site is clean dry and intact. No erythema there is no purulence. The incisions look great without any evidence of any infection Extremities have not had neurologic change from prior to surgery. She has sustained dorsal flexion plantarflexion and EHL intact Calves and thighs were soft nontender without evidence of DVT. Assessment/Plan Postoperative day #4 status post minimally invasive decompression and fusion at L45 L5-S1 for her first spondylolisthesis and spinal stenosis Patient is progressing some what slowly as expected from the surgery. She has turned a corner a little bit in terms of her mobility and seems to be more helpful now that she is able to sit up on her own. We will continue to increase the patient's mobilization with therapy. I think she is good for senior living facility tomorrow to [facility] and she had planned for continued rehab and strengthening prior to returning home. She is not having any hallucinations now and had some benefit with the Toradol in terms of her pain. Hopefully with the decrease use of narcotics we will be able to alleviate her hallucinations. We will continue pain control with oral or IV medications. We'll continue to follow patient closely.
--- NOTE | 2018-02-07 17:06 | P.PN ---
Subjective Principal diagnosis: Spinal stenosis surgery requiring laminectomy decompression This is an 82-year-old female patient of Dr. Ruiz with past medical history for hyperlipidemia, hypertension, osteoarthritis generalized, generalized anxiety disorder spinal stenosis. She has dealt with chronic pain from her lumbar spine for many years and underwent some injections although this was limited due to spurs. Patient has been admitted to the hospital status post laminectomy and decompression L4 5, L5-S1 for spondylolisthesis L4 5 , spinal stenosis L4 5 L5-S1, degenerative disc disease, neurogenic claudication , lower extremity radiculopathy, low back pain. Patient has been afebrile. Vital signs her been stable. Hemoglobin is 11.4. Patient has had no postop complications. Patient is complaining of a lot of pain that's worse today from yesterday. Pain is mostly in the front of her thighs and her lower back. She also complains of a new pain that is in the right lateral lower leg is a burning type pain. She denies any pain in her groin. No pain in the bottom of her feet. She has been to the edge of the bed with PT and sat in a chair. She is also had Grigsby catheter removed and voided in the bathroom. She is passing gas without a bowel movement. She is planning to go to [facility] for rehab. Patient is using incentive spirometry. 02/05: Patient is laying down in bed she continues to have pain in her lower back , she denies any leg pain, she has no numbness around the groin area, she continues to struggle with ambulation to the bathroom and she requires 2 people assist. 02/06, patient is comfortable however continues to have pain lower back, denies numbness in the legs, patient still requires Dilaudid and [place], Toradol to be added, [facility] is anticipated for discharge on Thursday. Denies any cardiac or pulmonary complaints, no hematuria 63:, Low back pain better today, no nausea no vomiting, IV Toradol still infusing at every 6 hours, therapies are better tolerated, anticipate discharge to [facility] in the morning, no cardiopulmonary complaints today Objective - Vital Signs Vital signs: Vital Signs Temp 98.5 F 02/07/18 14:34 Pulse 76 02/07/18 14:34 Resp 16 02/07/18 14:34 BP 129/67 06/03/18 14:34 Pulse Ox 97 02/07/18 14:34 Intake & Output 02/06/18 02/07/18 02/07/18 18:59 06:59 18:59 Intake Total 600 600 Balance 600 600 Weight 83.9 kg Intake: Intake, IV Titration 600 600 Amount Sodium Chloride 0.9% 1, 600 600 000 ml @ 75 mls/hr IV . [id number] [facility] Rx#:[id number] Other: Voiding Method Toilet Toilet Toilet # Voids 2 2 - Constitutional General appearance: Present: cooperative, no acute distress - EENT Eyes: Present: anicteric sclerae, EOMI, PERRLA, normal appearance ENT: Present: NA/AT, normal oropharynx - Neck Neck: Present: normal ROM - Respiratory Respiratory: bilateral: CTA, negative: diminished, dullness, rales - Cardiovascular Rhythm: regular Heart sounds: normal: S1, S2 Abnormal Heart Sounds: Absent: systolic murmur, diastolic murmur, rub, S3 Gallop , S4 Gallop, click, other - Gastrointestinal General gastrointestinal: Present: normal bowel sounds, soft - Integumentary Integumentary: Present: normal, normal turgor - Neurologic Neurologic: Present: CNII-XII intact - Musculoskeletal Musculoskeletal: Present: gait normal, generalized weakness, strength equal bilaterally - Psychiatric Psychiatric: Present: A&O x's 3, intact judgment & insight - Labs CBC & Chem 7: 02/07/18 06:57 02/07/18 06:57 Labs: Abnormal Lab Results - Last 24 Hours (Table) 02/07/18 02/07/18 Range/Units 06:57 06:57 WBC 10.8 H (3.8-10.6) k/uL RBC 3.33 L (3.80-5.40) m/uL Hgb 10.6 L (11.4-16.0) gm/dL Hct 33.4 L (34.0-46.0) % MCV 100.3 H (80.0-100.0) fL Neutrophils # 8.0 H (1.3-7.7) k/uL Calcium 8.1 L (8.4-10.2) mg/dL Laboratory Results - last 24 hr 02/07/18 02/07/18 02/07/18 06:57 06:57 07:43 WBC 10.8 H RBC 3.33 L Hgb 10.6 L Hct 33.4 L MCV 100.3 H MCH 31.7 MCHC 31.6 RDW 13.1 Plt Count 242 Neutrophils % 74 Lymphocytes % 12 Monocytes % 8 Eosinophils % 4 Basophils % 0 Neutrophils # 8.0 H Lymphocytes # 1.3 Monocytes # 0.9 Eosinophils # 0.4 Basophils # 0.1 Sodium 141 Potassium 3.8 Chloride 107 Carbon Dioxide 26 Anion Gap 8 BUN 10 Creatinine 0.53 Est GFR (CKD-EPI)AfAm >90 Est GFR (CKD-EPI)NonAf 90 Glucose 84 Calcium 8.1 L Urine Color Light Yellow Urine Appearance Clear Urine pH 7.0 Ur Specific [place] 1.008 Urine Protein Negative Urine Glucose (UA) Negative Urine Ketones Negative Urine Blood Negative Urine Nitrite Negative Urine Bilirubin Negative Urine Urobilinogen <2.0 Ur Leukocyte Esterase Negative Assessment and Plan Plan: 1. Spinal stenosis status post lumbar laminectomy. Continue current pain management per orthopedics, PT and OT. Incentive spirometry to reduce incidence of atelectasis and hospital-acquired pneumonia, continue current pain management as outlined by orthopedic surgery and increase ambulation. Uncontrolled pain today, add Toradol short-term IV. Anticipate we have to [facility] on Thursday 2. Hypertension. Continue Norvasc 5 mg at bedtime, atenolol 50 mg at bedtime, losartan 100 mg at bedtime. 3. Hyperlipidemia. Continue atorvastatin Thursday through Thursday. 4. Generalized anxiety disorder. Continue Xanax or 0.25 mg twice daily as needed. 5. Generalized osteoarthritis, stable. Discharge plan: Subacute rehab at [facility] on Thursday
[2018-02-07] MEDS: LOSARTAN 50 MG TAB PO SCH (20:18)
[2018-02-07] MEDS: amLODIPine 5 MG TAB PO SCH (20:18)
[2018-02-07] MEDS: ATENOLOL 50 MG TAB PO SCH (20:18)
[2018-02-08] MEDS: HYDROcodone/APAP 5-325MG 1 EACH TAB PO PRN ×3 (00:05→15:00)
[2018-02-08] MEDS: KETOROLAC 30 MG/ML 1 ML VIAL IVP SCH ×3 (00:05→12:36)
[2018-02-08] MEDS: SODIUM CHLORIDE 0.9% 1,000 ML IV SCH (04:16)
[2018-02-08 06:01] VITALS: RESP 16
[2018-02-08 07:23] LABS: Basophils # (A) 0.1 k/uL (0-0.2); Basophils % (A) 1 %; Eosinophils # (A) 0.4 k/uL (0-0.7); Eosinophils % (A) 5 %; HCT 35.8 % (34.0-46.0); HGB 11.2 gm/dL (11.4-16.0); Lymphocytes # (A) 1.4 k/uL (1.0-4.8); Lymphocytes % (A) 18 %; MCH 31.2 pg (25.0-35.0); MCHC 31.1 g/dL (31.0-37.0); MCV 100.2 fL (80.0-100.0); Mean Platelet Volume 7.4; Monocytes # (A) 0.7 k/uL (0-1.0); Monocytes % (A) 9 %; Neutrophils # (A) 5.2 k/uL (1.3-7.7); Neutrophils % (A) 65 %; Platelet Count 315 k/uL (150-450); RBC 3.58 m/uL (3.80-5.40); RDW 12.7 % (11.5-15.5); WBC 7.9 k/uL (3.8-10.6)
[2018-02-08 07:39] LABS: Anion Gap 10 mmol/L; Blood Urea Nitrogen 11 mg/dL (7-17); Calcium 8.7 mg/dL (8.4-10.2); Carbon Dioxide 28 mmol/L (22-30); Chloride 105 mmol/L (98-107); Glucose 88 mg/dL (74-99); Potassium 3.7 mmol/L (3.5-5.1); Sodium 143 mmol/L (137-145)
[2018-02-08 07:42] VITALS: BP 153/67; TEMP 98
[2018-02-08] MEDS: SENNOSIDES-DOCUSATE SODIUM 1 EACH TAB PO SCH (07:59)
[2018-02-08] MEDS: ASPIRIN 81 MG PO SCH (07:59)
[2018-02-08 08:26] VITALS: PULSE 67
--- NOTE | 2018-02-08 08:36 | P.DS ---
Providers Date of admission: 02/03/18 08:57 Expected date of discharge: 02/08/18 Attending physician: Natalia Todd Consults: 02/03/18 16:16 Consult Physician Routine Consulting Provider: Mehul Ruiz Reason/Comments: Medical management Do you want consulting provider notified?: Yes Primary care physician: Mehul Ruiz - Discharge Diagnosis(es) (1) Spondylolisthesis at L4-L5 level Current Visit: Yes Status: Acute (2) Spinal stenosis at L4-L5 level Current Visit: Yes Status: Acute (3) Lumbosacral spinal stenosis Current Visit: Yes Status: Acute (4) Low back pain Current Visit: Yes Status: Acute (5) Radiculopathy with lower extremity symptoms Current Visit: Yes Status: Acute (6) Neurogenic claudication due to lumbar spinal stenosis Current Visit: Yes Status: Acute (7) Disc disease, degenerative, lumbar or lumbosacral Current Visit: Yes Status: Acute Hospital Course: This is a pleasant 82-year-old female who presented with L4-5 spondylolisthesis and spinal stenosis; L5-S1 spinal stenosis, lumbosacral degenerative disc disease, neurogenic claudication, and low back pain with lower extremity radiculopathy who failed outpatient conservative therapy. She was admitted for L4-5 and L5-S1 minimally invasive posterior lateral decompression and fusion. Patient was initially progressing slowly postsurgically but has had improvement over the weekend. She is able to ambulate to the restroom. She is voiding without difficulty. She's been eating without difficulty. Right lower extremity radiculopathy continues to be present but has improved over the weekend. Her most significant symptoms continued pain at the surgical sites lumbosacral spine. She has been able to increase her mobility and ambulation. She has not had a bowel movement but is passing gas and is not experiencing any significant abdominal pain. She does feel she is ready for discharge today to [facility]. Condition on day of discharge stable. Patient will be discharged to [facility]. Patient was cleared preoperatively for surgery by Dr. Mehul Ruiz. Patient currently denies any nausea, vomiting, fever, or chills. Patient is eating and voiding freely without difficulty. Patient may shower Tegaderm dressing intact. Patient may remove Tegaderm dressing in 2 days and shower without a dressing at that time. Patient should keep Steri-Strips intact and allow them to fall off naturally. Patient should refrain from driving until at least after their first follow-up appointment in the office. Patient should avoid excessive bending, lifting, and twisting; no lifting greater than 10 pounds. She will be given a prescription for [place] 5 mg/325 mg 1-2 tablets every 6 hours as needed for pain , dispense #90, Flexeril 10 mg 1 tab every 12 hours when necessary muscle spasm , dispensed #60, and Senokot-S 1 tab twice a day as needed for constipation, dispensed #60, at discharge. Patient should avoid anti-inflammatories over the next 6 weeks postsurgically. We'll plan to have her hold Xanax while continuing with [place] and Flexeril. She may continue with her other previously prescribed home medications. MAPS was attempted to be ran the system is not currently functioning. Patient has been instructed to discontinue Ultram and Xanax. Physical Exam on day of discharge: Patient is awake, alert, and oriented 3 Vital signs stable Good chest excursion with deep inspiration and expiration Abdomen soft nontender No signs or symptoms of DVT; no calf pain Extensor hallucis longus, plantarflexion, and dorsiflexion positive sustained bilateral lower extremities Evidence of a bruise over the upper medial right calf measuring approximately 2.5 cm around most likely due to to needle placement prior to surgical intervention Incision is clean, dry, and intact; no erythema, purulence, or signs of infection Tegaderm dressing and non-stick Telfa intact Procedures: Minimally invasive posterior lateral decompression and fusion at L4-5 and L5-S1 Patient Condition at Discharge: Stable Plan - Discharge Summary Discharge Rx Participant: Yes New Discharge Prescriptions: New Cyclobenzaprine [Flexeril] 10 mg PO BID PRN #60 tab PRN Reason: Muscle Spasm Hydrocodone/Acetaminophen [[place] 5-325] 1 - 2 each PO Q6HR PRN #90 tab PRN Reason: Pain Sennosides-Docusate Sodium [Senokot-S] 1 tab PO BID PRN #60 tablet PRN Reason: Constipation Continue Ubidecarenone [Co Q-10] 200 mg PO DAILY Temazepam [Restoril] 15 mg PO HS PRN PRN Reason: Insomnia Rosuvastatin [Crestor] 20 mg PO MOTUWETHFR Aspirin [Adult Low Dose Aspirin EC] 81 mg PO DAILY amLODIPine [Norvasc] 5 mg PO DAILY Losartan Potassium [Cozaar] 100 mg PO DAILY Atenolol [Tenormin] 50 mg PO DAILY Discontinued Baclofen [Lioresal] 5 mg PO HS PRN PRN Reason: Pain Acetaminophen [Tylenol Arthritis] 650 mg PO Q8H ALPRAZolam [Xanax] 0.25 mg PO BID PRN PRN Reason: Anxiety traMADol HCl [Ultram] 50 mg PO Q8HR PRN PRN Reason: Pain Discharge Medication List Aspirin [Adult Low Dose Aspirin EC] 81 mg PO DAILY 02/02/18 [History] Atenolol [Tenormin] 50 mg PO DAILY 02/02/18 [History] Losartan Potassium [Cozaar] 100 mg PO DAILY 02/02/18 [History] Rosuvastatin [Crestor] 20 mg PO MOTUWETHFR 02/02/18 [History] Temazepam [Restoril] 15 mg PO HS PRN 02/02/18 [History] Ubidecarenone [Co Q-10] 200 mg PO DAILY 02/02/18 [History] amLODIPine [Norvasc] 5 mg PO DAILY 02/02/18 [History] Cyclobenzaprine [Flexeril] 10 mg PO BID PRN #60 tab 02/08/18 [Rx] Hydrocodone/Acetaminophen [[place] 5-325] 1 - 2 each PO Q6HR PRN #90 tab 02/08/18 [Rx] Sennosides-Docusate Sodium [Senokot-S] 1 tab PO BID PRN #60 tablet 02/08/18 [Rx] Follow up Appointment(s)/Referral(s): Terry Stern, NEREIDA [PHYSICIAN ROOF TECHNICIAN] - 2 Weeks (Patient may follow-up with Terry Stern PA-C or Dr. Joey Todd at [facility] in 2-3 weeks following discharge. ) Activity/Diet/Wound Care/Special Instructions: 1. Patient may shower with Tegaderm dressing intact. 2. Patient may remove Tegaderm dressing in 3 days and shower without a dressing at that time. 3. Patient should refrain from driving until at least after their first follow- up appointment in the office. 4. Patient should avoid excessive bending, twisting, and lifting; no lifting greater than 10 pounds 5. Take medications as prescribed 6. Do not soak in tub Discharge Disposition: TRANSFER TO SNF/ECF
== END 2018-02-08 15:35 | DRG 460 ==
LOC: 2ORMAIN 08:57 → 5ONC 16:03
PROVIDERS: ADMIT Orthopaedic Surgery Orthopaedic Surgery of the Spine; ATTEND Orthopaedic Surgery Orthopaedic Surgery of the Spine
PROC: 0SG3071 Fusion of Lumbosacral Joint with Autologous Tissue Substitute, Posterior Approach, Posterior Column, Open Approach (ICD-10-PCS; principal; 2018-02-03 11:05)
PROC: 07DS3ZZ Extraction of Vertebral Bone Marrow, Percutaneous Approach (ICD-10-PCS; principal; 2018-02-03 11:05)
PROC: 0SG0071 Fusion of Lumbar Vertebral Joint with Autologous Tissue Substitute, Posterior Approach, Posterior Column, Open Approach (ICD-10-PCS; principal; 2018-02-03 11:05)
DX: M48.062 Spinal stenosis, lumbar region with neurogenic claudication (principal); M48.07 Spinal stenosis, lumbosacral region; M51.17 Intervertebral disc disorders with radiculopathy, lumbosacral region; M51.16 Intervertebral disc disorders with radiculopathy, lumbar region; M43.16 Spondylolisthesis, lumbar region; E78.5 Hyperlipidemia, unspecified; F41.1 Generalized anxiety disorder; G89.29 Other chronic pain; I10 Essential (primary) hypertension; Z79.82 Long term (current) use of aspirin; Z80.0 Family history of malignant neoplasm of digestive organs; Z82.49 Family history of ischemic heart disease and other diseases of the circulatory system; Z90.710 Acquired absence of both cervix and uterus; Z98.42 Cataract extraction status, left eye; Z98.41 Cataract extraction status, right eye; Z96.1 Presence of intraocular lens; Z96.653 Presence of artificial knee joint, bilateral; Z79.899 Other long term (current) drug therapy
CPT/HCPCS: 36415; 72100; 80048; 80053; 81003; 85025; 86850; 86891; 86900; 86901

== ENCOUNTER 2019-09-24 08:05 | Emergency (ER) | payer MEDICARE, BC ==
[2019-09-24 08:13] VITALS: BP 132/79; PULSE 64; RESP 18; TEMP 97.7
--- NOTE | 2019-09-24 08:32 | ED ---
Lower Extremity Injury HPI - General Chief Complaint: Extremity Injury, Lower Stated Complaint: hip & knee pain Time Seen by Provider: 09/24/19 08:18 Source: patient Mode of arrival: wheelchair Limitations: no limitations - History of Present Illness Initial Comments: Patient is an 84-year-old female presenting to emergency Department with complaints of bilateral knee pain that has been increasing the last 24 hours. Patient states she went to her PCP for left hip pain and is scheduled for an MRI today at 9:40 AM. Patient states she presents today in the ER because both of her knees hurt. She had a hard time standing from a seated position. They were concerned that something else is going on with her knee. She has a history of bilateral knee replacements. She denies recent fever. She denies recent falls or trauma. She has no other complaints at this time. Upon arrival to ER, her vital signs are stable. - Related Data Home Medications Medication Instructions Recorded Confirmed Aspirin [Adult Low Dose Aspirin EC] 81 mg PO DAILY 02/02/18 02/03/18 Atenolol [Tenormin] 50 mg PO DAILY 02/02/18 02/03/18 Losartan Potassium [Cozaar] 100 mg PO DAILY 02/02/18 02/03/18 Rosuvastatin [Crestor] 20 mg PO MOTUWETHFR 02/02/18 02/03/18 Ubidecarenone [Co Q-10] 200 mg PO DAILY 02/02/18 02/03/18 amLODIPine [Norvasc] 5 mg PO DAILY 02/02/18 02/03/18 Previous Rx's Medication Instructions Recorded ALPRAZolam [Xanax] 0.25 mg PO BID PRN #20 tab 02/08/18 Cyclobenzaprine [Flexeril] 10 mg PO BID PRN #60 tab 02/08/18 Hydrocodone/Acetaminophen [[place] 1 - 2 each PO Q6HR PRN #90 tab 02/08/18 5-325] Melatonin 6 mg PO HS #60 tablet 02/08/18 Sennosides-Docusate Sodium 1 tab PO BID PRN #60 tablet 02/08/18 [Senokot-S] Allergies Allergy/AdvReac Type Severity Reaction Status Date / Time perfume Allergy Dyspnea Verified 09/24/19 08:09 Review of Systems ROS Statement: Those systems with pertinent positive or pertinent negative responses have been documented in the HPI. ROS Other: All systems not noted in ROS Statement are negative. Past Medical History Past Medical History: Hyperlipidemia, Hypertension, Osteoarthritis (OA) Additional Past Medical History / Comment(s): spinal stenosis History of Any Multi-Drug Resistant Organisms: None Reported Past Surgical History: Appendectomy, Back Surgery, Hysterectomy, Joint Replacement Additional Past Surgical History / Comment(s): rectocele,cystocele, [place] knee replacement, [place] cataract surgery with lens implants, Lumbar laminectomy, colonoscopy was less than 5 years ago with no polyps. Additional Past Anesthesia/Blood Transfusion Reaction / Comment(s): "takes a little while to come out of anesthesia" Past Psychological History: Anxiety Smoking Status: Never smoker Past Alcohol Use History: None Reported Past Drug Use History: None Reported - Past Family History Mother Additional Family Medical History / Comment(s): Other at age 56 from a heart aneurysm Father Family Medical History: Cancer Additional Family Medical History / Comment(s): Father at age 63 from liver cancer. Brother(s) Family Medical History: Coronary Artery Disease (CAD) Additional Family Medical History / Comment(s): The patient has a brother that at age 37 from coronary artery disease or cardiac problem. She has 1 brother that at 3 years of age. Sister(s) Family Medical History: Coronary Artery Disease (CAD) Additional Family Medical History / Comment(s): Patient has one sister that is with history of coronary artery disease and CABG. One sister is alive at age 95 with history of coronary artery disease and CABG. Son(s) Additional Family Medical History / Comment(s): Patient has 2 sons and 1 daughter with history of hypertension. General Exam - General Exam Comments Initial Comments: GENERAL: Well-appearing, well-nourished and in no acute distress. HEAD: Atraumatic, normocephalic. EYES: Pupils equal round and reactive to light, extraocular movements intact, sclera anicteric, conjunctiva are normal. ENT: Nares patent, oropharynx clear without exudates. Moist mucous membranes. NECK: Normal range of motion, supple without lymphadenopathy or JVD. LUNGS: Breath sounds clear to auscultation bilaterally and equal. No wheezes rales or rhonchi. HEART: Regular rate and rhythm without murmurs, rubs or gallops. ABDOMEN: Soft, nontender, normoactive bowel sounds. No guarding, no rebound. No masses appreciated. EXTREMITIES: Patient has pain with left hip range of motion. She has some mild swelling of the left knee and pain with palpation of the posterior aspect. There is no acute deformities of both knees. She does have increased pain with left knee flexion. Scars on both knees from knee replacements. Neurovascular intact. NEUROLOGICAL: Normal speech. PSYCH: Normal mood, normal affect. SKIN: Warm, Dry, normal turgor, no rashes or lesions noted. Limitations: no limitations Course Vital Signs 09/24/19 09/24/19 08:09 09:09 Temperature 97.7 F 97.7 F Pulse Rate 64 64 Respiratory 18 18 Rate Blood Pressure 132/79 132/79 O2 Sat by Pulse 97 97 Oximetry Medical Decision Making - Medical Decision Making Patient is a 84-year-old female presenting with bilateral knee pain has been increasing over the past 12 hours. She does have an MRI scheduled for her left hip today. History of bilateral knee replacements. X-rays of bilateral knees show no acute abnormalities. I discussed these findings with the patient. Her knee pain is most likely coming from walking abnormal secondary to her left hip pain. Patient is stable for discharge today. She will have a trial of anti- inflammatories for her knee pain and follow-up with her orthopedic doctor. She is in agreement with this plan of care. Disposition Clinical Impression: Bilateral knee pain, Left hip pain Disposition: HOME SELF-CARE Condition: Stable Instructions (If sedation given, give patient instructions): Knee Pain (ED) Additional Instructions: Please return to the Emergency Department if symptoms worsen or any other concerns. Follow-up with orthopedics as discussed. Trial of anti-inflammatories. Is patient prescribed a controlled substance at d/c from ED?: No Referrals: Mehul Ruiz MD [Primary Care Provider] - 1-2 days
--- NOTE | 2019-09-24 08:52 | XR ---
EXAMINATION TYPE: XR knee complete bilateral , 6 VIEWS DATE OF EXAM ORDERED: 09/24/2019 HISTORY: pain. COMPARISON: None. FINDINGS: There are bilateral knee prostheses in place. Prosthetic elements appear in good position. No fracture, dislocation or joint effusion is seen. A calcification overlying the right quadriceps t endon may represent phleboliths. IMPRESSION: 1. NO ACUTE OSSEOUS LESION. 2. STATUS POST BILATERAL KNEE ARTHROPLASTIES.
== END 2019-09-24 09:09 | disposition home or self-care (01) ==
LOC: EC 08:05
DX: M25.561 Pain in right knee (principal); M25.562 Pain in left knee; M25.552 Pain in left hip; E78.5 Hyperlipidemia, unspecified; I10 Essential (primary) hypertension; M19.90 Unspecified osteoarthritis, unspecified site; Z91.048 Other nonmedicinal substance allergy status; Z79.82 Long term (current) use of aspirin; Z79.899 Other long term (current) drug therapy; Z96.653 Presence of artificial knee joint, bilateral
CPT/HCPCS: 99283

== ENCOUNTER 2019-10-14 12:29 | Inpatient (IN) | payer MEDICARE, BC ==
[2019-10-14] MEDS ORDERED: NITROGLYCERIN OINT 1 INCH/GM PACKET TOPICAL STA (12:43)
[2019-10-14] MEDS ORDERED: ASPIRIN 81 MG PO STA (12:43)
[2019-10-14] MEDS ORDERED: SODIUM CHLORIDE 0.9% 1,000 ML IV STA (12:43)
--- NOTE | 2019-10-14 12:47 | ED ---
General Adult HPI - General Chief complaint: Chest Pain Stated complaint: chest pain Time Seen by Provider: 10/14/19 12:36 Source: patient, RN notes reviewed Mode of arrival: ambulatory Limitations: no limitations - History of Present Illness Initial comments: Patient is a pleasant 84-year-old female presenting to the emergency department chest discomfort. Symptoms have been waxing and waning for the past week or more. Discomfort is described as hurting in the mid chest. There is occasional radiation towards the shoulders. Patient states symptoms are worse with exertion. There may be some mild associated dyspnea. Patient has had some nausea. Patient has also had some so she did sweating. Currently patient is symptom-free. No leg pain or leg swelling. - Related Data Home Medications Medication Instructions Recorded Confirmed Aspirin [Adult Low Dose Aspirin EC] 81 mg PO DAILY 02/02/18 10/14/19 Atenolol [Tenormin] 50 mg PO HS 02/02/18 10/14/19 Losartan Potassium [Cozaar] 100 mg PO DAILY 02/02/18 10/14/19 Rosuvastatin [Crestor] 20 mg PO HS 02/02/18 10/14/19 Ubidecarenone [Co Q-10] 200 mg PO DAILY 02/02/18 10/14/19 amLODIPine [Norvasc] 5 mg PO HS 02/02/18 10/14/19 Acetaminophen [Tylenol] 650 mg PO Q8H PRN 10/14/19 10/14/19 Baclofen 5 mg PO HS PRN 10/14/19 10/14/19 Cbd Oil 1 cap PO HS 10/14/19 10/14/19 Gabapentin [Neurontin] 100 mg PO BID 10/14/19 10/14/19 Meclizine [Antivert] 25 mg PO TID PRN 10/14/19 10/14/19 Meloxicam [Mobic] 15 mg PO DAILY PRN 10/14/19 10/14/19 Temazepam [Restoril] 15 mg PO HS PRN 10/14/19 10/14/19 traMADol HCL [Ultram] 50 mg PO Q8H PRN 10/14/19 10/14/19 Previous Rx's Medication Instructions Recorded ALPRAZolam [Xanax] 0.25 mg PO BID PRN #20 tab 02/08/18 Allergies Allergy/AdvReac Type Severity Reaction Status Date / Time perfume AdvReac Dyspnea Verified 10/14/19 14:28 Review of Systems ROS Statement: Those systems with pertinent positive or pertinent negative responses have been documented in the HPI. ROS Other: All systems not noted in ROS Statement are negative. Constitutional: Denies: fever Eyes: Denies: eye pain ENT: Denies: ear pain Respiratory: Reports: as per HPI Cardiovascular: Reports: as per HPI, chest pain Endocrine: Reports: fatigue Gastrointestinal: Denies: abdominal pain Genitourinary: Denies: dysuria Musculoskeletal: Denies: back pain Skin: Denies: rash Neurological: Denies: weakness Past Medical History Past Medical History: Hyperlipidemia, Hypertension, Osteoarthritis (OA) Additional Past Medical History / Comment(s): spinal stenosis History of Any Multi-Drug Resistant Organisms: None Reported Past Surgical History: Appendectomy, Back Surgery, Hysterectomy, Joint Replacement Additional Past Surgical History / Comment(s): rectocele,cystocele, [place] knee replacement, [place] cataract surgery with lens implants, Lumbar laminectomy, colonoscopy was less than 5 years ago with no polyps. Additional Past Anesthesia/Blood Transfusion Reaction / Comment(s): "takes a little while to come out of anesthesia" Past Psychological History: Anxiety Smoking Status: Never smoker Past Alcohol Use History: None Reported Past Drug Use History: None Reported - Past Family History Mother Additional Family Medical History / Comment(s): Other at age 56 from a heart aneurysm Father Family Medical History: Cancer Additional Family Medical History / Comment(s): Father at age 63 from liver cancer. Brother(s) Family Medical History: Coronary Artery Disease (CAD) Additional Family Medical History / Comment(s): The patient has a brother that at age 37 from coronary artery disease or cardiac problem. She has 1 brother that at 3 years of age. Sister(s) Family Medical History: Coronary Artery Disease (CAD) Additional Family Medical History / Comment(s): Patient has one sister that is with history of coronary artery disease and CABG. One sister is alive at age 95 with history of coronary artery disease and CABG. Son(s) Additional Family Medical History / Comment(s): Patient has 2 sons and 1 daughter with history of hypertension. General Exam Limitations: no limitations General appearance: alert, in no apparent distress Head exam: Present: normocephalic Eye exam: Present: normal appearance, PERRL ENT exam: Present: normal oropharynx Neck exam: Present: normal inspection Respiratory exam: Present: normal lung sounds bilaterally. Absent: chest wall tenderness Cardiovascular Exam: Present: regular rate, normal rhythm Expanded Peripheral pulses: 2+: Radial (R), Radial (L), Posterior Tibialis (R), Posterior Tibialis (L), Dorsalis Pedis (R), Dorsalis Pedis (L) GI/Abdominal exam: Present: soft. Absent: distended, tenderness Extremities exam: Present: normal inspection. Absent: pedal edema, calf tenderness Neurological exam: Present: alert Psychiatric exam: Present: normal affect, normal mood Skin exam: Present: normal color Course Vital Signs 10/14/19 10/14/19 10/14/19 12:32 14:00 15:00 Temperature 97.9 F Pulse Rate 104 H 69 71 Respiratory 20 18 18 Rate Blood Pressure 137/81 139/71 142/70 O2 Sat by Pulse 99 96 96 Oximetry 10/14/19 16:00 Temperature Pulse Rate 73 Respiratory 18 Rate Blood Pressure 152/69 O2 Sat by Pulse 96 Oximetry EKG Findings - EKG Comments: EKG Findings:: Normal sinus rhythm 74. VA 160. QRS 90. QT 406. QTc 450. Normal axis. Normal QRS. No acute ST change. Medical Decision Making - Medical Decision Making Patient reevaluated and resting comfortably in bed. Case was again discussed with Dr. Beck, who will admit covering for Dr. Ruiz. Patient does admit that she may have had a fever 3 or 4 days ago. No history of known leukocytosis. Etiology of leukocytosis is unclear at this point. Urinalysis and blood culture have been added. - Lab Data Result diagrams: 10/14/19 12:50 10/14/19 12:50 Lab Results 10/14/19 10/14/19 10/14/19 Range/Units 12:50 12:50 12:50 WBC 23.8 H (3.8-10.6) k/uL RBC 4.20 (3.80-5.40) m/uL Hgb 13.3 (11.4-16.0) gm/dL Hct 41.2 (34.0-46.0) % MCV 98.1 (80.0-100.0) fL MCH 31.8 (25.0-35.0) pg MCHC 32.4 (31.0-37.0) g/dL RDW 12.4 (11.5-15.5) % Plt Count 451 H (150-450) k/uL Neutrophils % 83 % Lymphocytes % 8 % Monocytes % 6 % Eosinophils % 1 % Basophils % 2 % Neutrophils # 19.7 H (1.3-7.7) k/uL Lymphocytes # 1.8 (1.0-4.8) k/uL Monocytes # 1.4 H (0-1.0) k/uL Eosinophils # 0.3 (0-0.7) k/uL Basophils # 0.4 H (0-0.2) k/uL PT 10.5 (9.0-12.0) sec INR 1.0 (<1.2) APTT 21.4 L (22.0-30.0) sec D-Dimer 0.79 H (<0.60) mg/L FEU Sodium 135 L (137-145) mmol/L Potassium 4.1 (3.5-5.1) mmol/L Chloride 102 (98-107) mmol/L Carbon Dioxide 24 (22-30) mmol/L Anion Gap 9 mmol/L BUN 18 H (7-17) mg/dL Creatinine 0.85 (0.52-1.04) mg/dL Est GFR (CKD-EPI)AfAm 74 (>60 ml/min/1.73 sqM) Est GFR (CKD-EPI)NonAf 64 (>60 ml/min/1.73 sqM) Glucose 101 H (74-99) mg/dL Calcium 9.1 (8.4-10.2) mg/dL Magnesium 2.0 (1.6-2.3) mg/dL Total Bilirubin 0.9 (0.2-1.3) mg/dL AST 16 (14-36) U/L ALT 9 (4-34) U/L Alkaline Phosphatase 85 (38-126) U/L Troponin I (0.000-0.034) ng/mL NT-Pro-B Natriuret Pep pg/mL Total Protein 6.4 (6.3-8.2) g/dL Albumin 3.6 (3.5-5.0) g/dL Amylase 37 (30-110) U/L Lipase 48 (23-300) U/L 10/14/19 10/14/19 Range/Units 12:50 12:50 WBC (3.8-10.6) k/uL RBC (3.80-5.40) m/uL Hgb (11.4-16.0) gm/dL Hct (34.0-46.0) % MCV (80.0-100.0) fL MCH (25.0-35.0) pg MCHC (31.0-37.0) g/dL RDW (11.5-15.5) % Plt Count (150-450) k/uL Neutrophils % % Lymphocytes % % Monocytes % % Eosinophils % % Basophils % % Neutrophils # (1.3-7.7) k/uL Lymphocytes # (1.0-4.8) k/uL Monocytes # (0-1.0) k/uL Eosinophils # (0-0.7) k/uL Basophils # (0-0.2) k/uL PT (9.0-12.0) sec INR (<1.2) APTT (22.0-30.0) sec D-Dimer (<0.60) mg/L FEU Sodium (137-145) mmol/L Potassium (3.5-5.1) mmol/L Chloride (98-107) mmol/L Carbon Dioxide (22-30) mmol/L Anion Gap mmol/L BUN (7-17) mg/dL Creatinine (0.52-1.04) mg/dL Est GFR (CKD-EPI)AfAm (>60 ml/min/1.73 sqM) Est GFR (CKD-EPI)NonAf (>60 ml/min/1.73 sqM) Glucose (74-99) mg/dL Calcium (8.4-10.2) mg/dL Magnesium (1.6-2.3) mg/dL Total Bilirubin (0.2-1.3) mg/dL AST (14-36) U/L ALT (4-34) U/L Alkaline Phosphatase (38-126) U/L Troponin I <0.012 (0.000-0.034) ng/mL NT-Pro-B Natriuret Pep 642 pg/mL Total Protein (6.3-8.2) g/dL Albumin (3.5-5.0) g/dL Amylase (30-110) U/L Lipase (23-300) U/L - Radiology Data Radiology results: report reviewed (CT angiogram of the chest shows no pulmonary embolism. Hiatal hernia. Cardiac megaly. Right upper lobe subpleural nodule), image reviewed (Two-view chest x-ray shows no acute process) Disposition Clinical Impression: Chest pain, Leukocytosis Disposition: ADMITTED IP TO THIS HOSP Is patient prescribed a controlled substance at d/c from ED?: No Referrals: Mehul Ruiz MD [Primary Care Provider] - 1-2 days Decision Time: 16:21
[2019-10-14 13:04] LABS: Basophils # (A) 0.4 k/uL (0-0.2); Basophils % (A) 2 %; Eosinophils # (A) 0.3 k/uL (0-0.7); Eosinophils % (A) 1 %; HCT 41.2 % (34.0-46.0); HGB 13.3 gm/dL (11.4-16.0); Lymphocytes # (A) 1.8 k/uL (1.0-4.8); Lymphocytes % (A) 8 %; MCH 31.8 pg (25.0-35.0); MCHC 32.4 g/dL (31.0-37.0); MCV 98.1 fL (80.0-100.0); Mean Platelet Volume 7.1; Monocytes # (A) 1.4 k/uL (0-1.0); Monocytes % (A) 6 %; Neutrophils # (A) 19.7 k/uL (1.3-7.7); Neutrophils % (A) 83 %; Platelet Count 451 k/uL (150-450); RDW 12.4 % (11.5-15.5); WBC 23.8 k/uL (3.8-10.6)
--- NOTE | 2019-10-14 13:10 | XR ---
EXAMINATION TYPE: XR chest 2V DATE OF EXAM: 10/14/2019 COMPARISON: 01/19/2018 INDICATION: Chest pain TECHNIQUE: Frontal and lateral views of the chest are obtained. FINDINGS: The heart size is normal. The pulmonary vasculature is normal. The lungs are clear. IMPRESSION: 1. No acute pulmonary process.
[2019-10-14 13:21] LABS: Albumin 3.6 g/dL (3.5-5.0); Calcium 9.1 mg/dL (8.4-10.2); Potassium 4.1 mmol/L (3.5-5.1); Total Bilirubin 0.9 mg/dL (0.2-1.3); Total Protein 6.4 g/dL (6.3-8.2)
[2019-10-14 13:24] LABS: Prothrombin Time 10.5 sec (9.0-12.0)
[2019-10-14 13:29] LABS: D-Dimer 0.79 mg/L FEU (<0.60); Partial Thromboplastin Time 21.4 sec (22.0-30.0)
--- NOTE | 2019-10-14 16:08 | CT ---
EXAMINATION TYPE: CT angio chest DATE OF EXAM: 10/14/2019 3:55 PM COMPARISON: Chest pain HISTORY: dyspnea on exertion, chest pain CT DLP: 343.9 mGycm Automated exposure control for dose reduction was used. CONTRAST: CTA scan of the thorax is performed with IV Contrast, patient injected with 100 mL of Isovue 370, pul monary embolism protocol. . FINDINGS: LUNGS: 2 mm subpleural nodule right upper lobe axial image 76 to small to characterize. No consolidat mariah pneumonia. No pleural effusion. No pneumothorax. MEDIASTINUM: Heart is enlarged. Coronary artery calcifications are noted. Maximal dimension of the ao rta is 3.5 cm. No evidence of aneurysm no pathologic adenopathy. Small hiatal hernia noted. Pulmonary arteries enhance normally. OTHER: Hypertrophic and degenerative change of the spine. IMPRESSION: 1. No diagnostic evidence of pulmonary embolism. 2. Correlate for coronary artery atherosclerotic disease. 3. Hiatal hernia 4. Cardiomegaly 5. 2 mm right upper lobe subpleural nodule too small to characterize. Recommend 12 month follow-up.
[2019-10-14] MEDS ORDERED: NITROGLYCERIN SL TABS 0.4 MG TAB SUBLINGUAL PRN (16:22)
[2019-10-14 17:56] LABS: Appearance,Urine Clear (Clear); Bilirubin,Urine Negative (Negative); Blood,Urine Negative (Negative); Color,Urine Light Yellow; Glucose,Urine (UA) Negative (Negative); Ketones,Urine Negative (Negative); Leukocyte Esterase,Urine Negative (Negative); Nitrite,Urine Negative (Negative); PH, Urine 5.5 (5.0-8.0); Protein,Urine Negative (Negative); Urobilinogen,Urine <2.0 mg/dL (<2.0)
[2019-10-14] MEDS ORDERED: traMADol 50 MG TAB PO PRN (18:20)
[2019-10-14] MEDS ORDERED: MELOXICAM 7.5 MG TAB PO PRN (18:20)
[2019-10-14] MEDS ORDERED: ALPRAZolam 0.25 MG TAB PO PRN (18:20)
[2019-10-14] MEDS ORDERED: BACLOFEN 10 MG TAB PO PRN (18:20)
[2019-10-14 18:50] LABS: Specific Gravity,Urine >1.050 (1.001-1.035)
[2019-10-14] MEDS: NITROGLYCERIN OINT 1 INCH/GM PACKET TOPICAL SCH (20:27)
[2019-10-14] MEDS: ACETAMINOPHEN TAB 325 MG TAB PO PRN (20:27)
[2019-10-14] MEDS: ATORVASTATIN 40 MG TAB PO SCH (20:28)
[2019-10-14] MEDS: GABAPENTIN 100 MG CAP PO SCH (20:28)
[2019-10-14] MEDS: ATENOLOL 50 MG TAB PO SCH (20:28)
[2019-10-14] MEDS: amLODIPine 5 MG TAB PO SCH ×2 (20:33→20:34)
[2019-10-14] MEDS: MECLIZINE 25 MG TAB PO PRN (20:34)
[2019-10-14] MEDS: TEMAZEPAM 15 MG CAP PO PRN (23:05)
[2019-10-15] MEDS: NITROGLYCERIN OINT 1 INCH/GM PACKET TOPICAL SCH ×5 (01:25→22:57)
[2019-10-15 07:16] LABS: Basophils # (A) 0.4 k/uL (0-0.2); Basophils % (A) 2 %; Eosinophils # (A) 0.2 k/uL (0-0.7); Eosinophils % (A) 1 %; HCT 38.9 % (34.0-46.0); HGB 12.2 gm/dL (11.4-16.0); Lymphocytes # (A) 1.8 k/uL (1.0-4.8); Lymphocytes % (A) 10 %; MCH 30.6 pg (25.0-35.0); MCHC 31.3 g/dL (31.0-37.0); Mean Platelet Volume 7.1; Monocytes # (A) 1.2 k/uL (0-1.0); Monocytes % (A) 7 %; Neutrophils # (A) 13.9 k/uL (1.3-7.7); Neutrophils % (A) 78 %; Platelet Count 471 k/uL (150-450); RBC 3.97 m/uL (3.80-5.40); RDW 12.6 % (11.5-15.5); WBC 17.8 k/uL (3.8-10.6)
[2019-10-15 07:22] LABS: Cholesterol 92 mg/dL (<200); HDL Cholesterol 33 mg/dL (40-60); LDL Cholesterol,Calculated 32 mg/dL (0-99); Triglycerides 134 mg/dL (<150)
[2019-10-15] MEDS: GABAPENTIN 100 MG CAP PO SCH ×2 (08:14→19:56)
[2019-10-15] MEDS: PANTOPRAZOLE 40 MG TABLET PO SCH (08:14)
[2019-10-15] MEDS: ASPIRIN 81 MG PO SCH (08:14)
[2019-10-15] MEDS: LOSARTAN 50 MG TAB PO SCH (08:14)
[2019-10-15] MEDS: ACETAMINOPHEN TAB 325 MG TAB PO PRN ×2 (08:25→18:28)
[2019-10-15] MEDS: MECLIZINE 25 MG TAB PO PRN ×2 (08:25→19:57)
[2019-10-15] MEDS ORDERED: NON FORMULARY DRUG (Ubidecarenone [Co Q-10] 200 MG) PO SCH (09:00)
[2019-10-15] MEDS ORDERED: ASPIRIN 325 MG TAB PO SCH (09:00)
--- NOTE | 2019-10-15 10:53 | CONS ---
RUFUS Stock is an 84-year-old lady with history of hypertension, dyslipidemia and osteoarthritis with spinal stenosis, who presented to hospital complaining of chest pain. She describes it as a mild precordial chest pain that at times radiated to her shoulders. These symptoms are worse with exertion and there is some dyspnea, but patient also has some discomfort with movements. The patient was pain free when she came to the hospital and had remained pain-free since. She has had 3 sets of cardiac enzymes that are all within normal limits. An EKG shows sinus rhythm and is within normal limits. A CTA of the chest was negative for pulmonary embolism. There was coronary artery calcification noted. Three sets of cardiac enzymes have been negative. I reviewed her symptomatology and talked to her about treatment options. Understanding the risks and benefits, she will proceed with a dobutamine echo on Thursday. If this is abnormal, I will perform cardiac catheterization on her. PAST MEDICAL HISTORY: Significant for hypertension, dyslipidemia, chronic back pain, spinal stenosis and prior back surgery. MEDICATIONS: Medications include Antivert for dizziness, Ultram, Tylenol, Restoril, Mobic, baclofen, Neurontin, Norvasc, Co Q10, Crestor, Cozaar, Tenormin, aspirin and Xanax. ALLERGIES: Allergic to PERFUME. FAMILY HISTORY: Negative for premature coronary artery disease. SOCIAL HISTORY: Negative for smoking, EtOH abuse, or drug abuse. REVIEW OF SYSTEMS: HEENT is significant for vertigo. CARDIAC: As described above. RESPIRATORY: Negative. GI: Negative. GENITOURINARY: Negative. ALLERGY/IMMUNOLOGY: Negative. SKIN: Negative. MUSCULOSKELETAL: Significant for back pain. PSYCHOSOCIAL: Negative. ENDOCRINE: Negative. HEMATOLOGICAL: Negative. DERM: Negative. CONSTITUTIONAL: Negative. ONCOLOGICAL: Negative. AVIONICS TEST TECHNICIAN: Negative. Rest of the systems review is not relevant. PHYSICAL EXAMINATION: On exam, patient is comfortable at rest. Afebrile. Vital signs are stable. There is no jugular venous distention. Chest exam reveals good air entry bilaterally. Heart exam reveals first and second heart sounds, has an ejection systolic murmur in the aortic area. Abdomen is soft. Exam of extremities did not reveal any edema. Peripheral pulses are felt. Her white cell count is elevated at 17.8, platelet count is 470, creatinine is 0.8, potassium is 4.1. LDL cholesterol is 30. Tropes are negative. EKG does not reveal ischemic changes. ASSESSMENT: 1. Precordial chest pain. 2. Hypertension. 3. Dyslipidemia. 4. Elevated white cell count. PLAN: Patient's chest discomfort sounds somewhat atypical. I will obtain a stress test on her on Thursday. I will obtain a 2D echo. The patient has elevated white cell count and workup as per primary. MMODL / IJN: [id number] /
--- NOTE | 2019-10-15 16:03 | P.HPIM ---
History of Present Illness H&P Date: 10/15/19 Chief Complaint: Chest pain with radiation to the right scapula This is an 84-year-old pleasant lady patient of Dr. Ruiz. He has underlying she has underlying history of hypertension hyperlipidemia, osteoarthritis, spinal stenosis, admitted to the emergency room secondary to substernal discomfort with radiation to the right shoulder blade, this has been worse for the past one day, she was also sick in September for which she was prescribed an antibiotic no steroids, however since then she had issues regarding esophagitis, with early satiety, and gastritis symptoms. Patient denies any diarrhea no cough no fever, has chills, she also received but that intramuscular injection with steroid or a trigger injection for steroids approximately 2 weeks prior to admission. Her last colonoscopy weiner with Dr. Kelly unknown year, patient denies any melena hematochezia dysphagia no edema, has shortness of breath and right shoulder pain. No history of asthma or COPD Emergency room during her evaluation, cardiac biomarkers are normal with 0.012, [employer] proBNP of 642, CT angiogram shows no pulmonary emboli, has hiatal hernia, there is a right upper lobe subpleural nodule that needs to be scanned in [address], WBC count of 23,000 currently at 17,000, predominantly lymphocytes, platelet count slightly elevated at 471, d-dimer 0.79, glucose 109 transaminitis noted, ua is negative. patient is admitted for chest pain shortness of breath, cannot rule out acute on chronic cholecystitis, with leukocytosis, cardiology is consulted, ultrasound of the gallbladder is requested, and a stress echocardiogram from cardiology to be done on thursday patient is on nitrate 6, through a patch which has helped, and is on aspirin and not on iv heparin, beta blockers and statins are continued Review of Systems Constitutional: Reports as per HPI, Denies anorexia, Denies chills, Denies chronic headaches, Denies chronic pain, Denies daytime sleepiness, Denies fatigue, Denies fever, Denies lethargy, Denies malaise, Denies night sweats, Denies poor appetite, Denies sweats, Denies weakness, Denies weight gain, Denies weight loss Ears, nose, mouth and throat: Reports as per HPI Cardiovascular: Reports as per HPI, Reports chest pain, Reports decreased exercise tolerance, Reports dyspnea on exertion, Denies claudication, Denies edema, Denies high blood pressure, Denies irregular heart beat, Denies leg edema, Denies lightheadedness, Denies orthopnea, Denies palpitations, Denies paroxysmal nocturnal dyspnea, Denies phlebitis, Denies rapid heart beat, Denies shortness of breath, Denies syncope Respiratory: Denies as per HPI, Denies congestion, Denies cough, Denies cough with sputum, Denies dyspnea, Denies excessive sputum, Denies hemoptysis, Denies home oxygen, Denies pain, Denies pain on inspiration, Denies pleurisy, Denies respiratory infections, Denies sleep apnea, Denies snoring, Denies wheezing Gastrointestinal: Reports as per HPI Genitourinary: Reports as per HPI, Denies abnormal vaginal bleeding, Denies decreased libido, Denies difficulty conceiving, Denies difficulty voiding, Denies dysmenorrhea, Denies dyspareunia, Denies dysuria, Denies flank pain, Denies genital sores, Denies hematuria, Denies hot flashes, Denies incomplete emptying, Denies kidney stones, Denies menorrhagia, Denies mixed incontinence, Denies nocturia, Denies pelvic pain, Denies post void dribbling, Denies , Denies prolapse symptoms, Denies stress incontinence, Denies urge incontinence, Denies urgency, Denies urinary frequency, Denies vaginal discharge, Denies vaginal dryness, Denies vaginal itching, Denies vaginal odor Menstruation: Reports as per HPI, Denies amenorrhea, Denies amenorrhea on BC, Denies currently menstrual, Denies cycle < 21 days, Denies cycle > 35 days, Bakari es cycle variable, Denies menses 1-7 days, Denies menses 8 or > days, Denies menses variable, Denies period heavy, Denies period light, Denies period normal, Denies period spotting, Denies post hysterectomy, Denies postmenopausal, Denies premenarcheal Musculoskeletal: Reports as per HPI, Denies arm numbness/tingling, Denies atrophy, Denies fractures, Denies frequent falls, Denies gait dysfunction, Denies hot joints, Denies leg numbness/tingling, Denies limitation of motion, Denies loss of height, Denies low back pain, Denies morning stiffness, Denies muscle cramps, Denies muscle weakness, Denies myalgias, Denies neck pain, Denies neck stiffness, Denies prior amputations, Denies redness of joints, Denies shooting arm pain, Denies shooting leg pain Integumentary: Reports as per HPI Neurological: Reports as per HPI, Denies aphasia, Denies ataxia, Denies balance difficulties, Denies burning pain, Denies change in mentation, Denies change in smell/taste, Denies change in speech, Denies confusion, Denies convulsions, Denies double vision, Denies gait dysfunction, Denies head injury, Denies headaches, Denies hearing difficulties, Denies lack of coordination, Denies loss of vision, Denies memory loss, Denies migraines, Denies motor disturbance, Denies numbness, Denies paralysis, Denies paresthesias, Denies seizures, Denies sensory deficit, Denies spasticity, Denies syncope, Denies tic, Denies tingling, Denies transient paralysis, Denies tremors, Denies vertigo, Denies weakness, Denies visual changes Psychiatric: Reports as per HPI Endocrine: Reports as per HPI, Denies cold intolerance, Denies deepening of the voice, Denies excessive sweating, Denies excessive thirst, Denies fatigue, Denies flushing, Denies heat intolerance, Denies high blood sugars, Denies increase in ring/shoe/hat size, Denies low blood sugars, Denies nocturia, Denies palpitations, Denies polydipsia, Denies polyphagia, Denies polyuria, Denies proptosis, Denies recent glucocorticoid use, Denies thyroid mass, Denies weight change Hematologic/Lymphatic: Reports as per HPI Allergic/Immunologic: Reports as per HPI, Denies allergic rhinitis, Denies anaphylaxis, Denies angioedema, Denies gluten intolerance, Denies persistent infections, Denies seasonal allergies, Denies urticaria, Denies wheezing Past Medical History Past Medical History: Hyperlipidemia, Hypertension, Osteoarthritis (OA) Additional Past Medical History / Comment(s): spinal stenosis History of Any Multi-Drug Resistant Organisms: None Reported Past Surgical History: Appendectomy, Back Surgery, Hysterectomy, Joint Replacement Additional Past Surgical History / Comment(s): rectocele,cystocele, [place] knee replacement, [place] cataract surgery, Lumbar laminectomy, colonoscopy was less than 5 years ago with no polyps. Additional Past Anesthesia/Blood Transfusion Reaction / Comment(s): "takes a little while to come out of anesthesia" Past Psychological History: Anxiety Smoking Status: Never smoker Past Alcohol Use History: None Reported Additional Past Alcohol Use History / Comment(s): Patient is a lifelong nonsmoker. No alcohol use or abuse. She lives in senior housing. Past Drug Use History: None Reported - Past Family History Mother Additional Family Medical History / Comment(s): Other at age 56 from a h eart aneurysm Father Family Medical History: Cancer Additional Family Medical History / Comment(s): Father at age 63 from liver cancer. Brother(s) Family Medical History: Coronary Artery Disease (CAD) Additional Family Medical History / Comment(s): The patient has a brother that at age 37 from coronary artery disease or cardiac problem. She has 1 brother that at 3 years of age. Sister(s) Family Medical History: Coronary Artery Disease (CAD) Additional Family Medical History / Comment(s): Patient has one sister that is with history of coronary artery disease and CABG. One sister is alive at age 95 with history of coronary artery disease and CABG. Son(s) Additional Family Medical History / Comment(s): Patient has 2 sons and 1 daughter with history of hypertension. Medications and Allergies Home Medications Medication Instructions Recorded Confirmed Type Aspirin [Adult Low Dose Aspirin EC] 81 mg PO DAILY 02/02/18 10/14/19 History Atenolol [Tenormin] 50 mg PO HS 02/02/18 10/14/19 History Losartan Potassium [Cozaar] 100 mg PO DAILY 02/02/18 10/14/19 History Rosuvastatin [Crestor] 20 mg PO HS 02/02/18 10/14/19 History Ubidecarenone [Co Q-10] 200 mg PO DAILY 02/02/18 10/14/19 History amLODIPine [Norvasc] 5 mg PO HS 02/02/18 10/14/19 History ALPRAZolam [Xanax] 0.25 mg PO BID PRN #20 tab 02/08/18 10/14/19 Rx Acetaminophen [Tylenol] 650 mg PO Q8H PRN 10/14/19 10/14/19 History Baclofen 5 mg PO HS PRN 10/14/19 10/14/19 History Cbd Oil 1 cap PO HS 10/14/19 10/14/19 History Gabapentin [Neurontin] 100 mg PO BID 10/14/19 10/14/19 History Meclizine [Antivert] 25 mg PO TID PRN 10/14/19 10/14/19 History Meloxicam [Mobic] 15 mg PO DAILY PRN 10/14/19 10/14/19 History Temazepam [Restoril] 15 mg PO HS PRN 10/14/19 10/14/19 History traMADol HCL [Ultram] 50 mg PO Q8H PRN 10/14/19 10/14/19 History Allergies Allergy/AdvReac Type Severity Reaction Status Date / Time perfume AdvReac Dyspnea Verified 10/14/19 14:28 Physical Exam Vitals: Vital Signs Temp Pulse Pulse Resp BP BP Pulse Ox 10/15/19 12:00 69 16 127/62 95 10/15/19 08:00 98 F 73 16 124/63 95 10/15/19 03:48 71 18 10/14/19 23:56 97.6 F 68 124/73 94 L 10/14/19 19:22 98.3 F 73 148/73 96 10/14/19 18:34 95 10/14/19 17:30 98.4 F 80 18 152/83 95 10/14/19 16:47 98.0 F 71 18 122/70 95 10/14/19 16:00 73 18 152/69 96 Intake and Output 10/15/19 10/15/19 10/15/19 06:59 14:59 22:59 Intake Total 240 120 Balance 240 120 Intake: Oral 240 120 Other: Voiding Method Toilet Toilet # Voids 1 1 - Constitutional General appearance: cooperative, no acute distress - EENT Eyes: EOMI, PERRLA, normal appearance ENT: NA/AT, normal oropharynx - Neck Neck: normal ROM - Respiratory Respiratory: bilateral: CTA, negative: diminished, dullness, rales - Cardiovascular Rhythm: regular Heart sounds: normal: S1, S2 Abnormal Heart Sounds: no systolic murmur, no diastolic murmur, no rub, no S3 Gallop, no S4 Gallop, no click, no other - Gastrointestinal General gastrointestinal: normal bowel sounds - Integumentary Integumentary: normal, normal turgor - Neurologic Neurologic: CNII-XII intact - Musculoskeletal Musculoskeletal: gait normal, strength equal bilaterally - Psychiatric Psychiatric: A&O x's 3, appropriate affect, intact judgment & insight Results CBC & Chem 7: 10/15/19 06:33 10/14/19 12:50 Labs: Abnormal Lab Results - Last 24 Hours (Table) 10/14/19 10/15/19 10/15/19 Range/Units 17:34 06:33 06:33 WBC 17.8 H (3.8-10.6) k/uL Plt Count 471 H (150-450) k/uL Neutrophils # 13.9 H (1.3-7.7) k/uL Monocytes # 1.2 H (0-1.0) k/uL Basophils # 0.4 H (0-0.2) k/uL HDL Cholesterol 33 L (40-60) mg/dL Ur Specific [place] >1.050 H (1.001-1.035) Laboratory Results WBC 17.8 k/uL (3.8-10.6) H 10/15/19 06:33 RBC 3.97 m/uL (3.80-5.40) 10/15/19 06:33 Hgb 12.2 gm/dL (11.4-16.0) 10/15/19 06:33 Hct 38.9 % (34.0-46.0) 10/15/19 06:33 MCV 98.0 fL (80.0-100.0) 10/15/19 06:33 MCH 30.6 pg (25.0-35.0) 10/15/19 06:33 MCHC 31.3 g/dL (31.0-37.0) 10/15/19 06:33 RDW 12.6 % (11.5-15.5) 10/15/19 06:33 Plt Count 471 k/uL (150-450) H 10/15/19 06:33 Neutrophils % 78 % 10/15/19 06:33 Lymphocytes % 10 % 10/15/19 06:33 Monocytes % 7 % 10/15/19 06:33 Eosinophils % 1 % 10/15/19 06:33 Basophils % 2 % 10/15/19 06:33 Neutrophils # 13.9 k/uL (1.3-7.7) H 10/15/19 06:33 Lymphocytes # 1.8 k/uL (1.0-4.8) 10/15/19 06:33 Monocytes # 1.2 k/uL (0-1.0) H 10/15/19 06:33 Eosinophils # 0.2 k/uL (0-0.7) 10/15/19 06:33 Basophils # 0.4 k/uL (0-0.2) H 10/15/19 06:33 PT 10.5 sec (9.0-12.0) 10/14/19 12:50 INR 1.0 (<1.2) 10/14/19 12:50 APTT 21.4 sec (22.0-30.0) L 10/14/19 12:50 D-Dimer 0.79 mg/L FEU (<0.60) H 10/14/19 12:50 Sodium 135 mmol/L (137-145) L 10/14/19 12:50 Potassium 4.1 mmol/L (3.5-5.1) 10/14/19 12:50 Chloride 102 mmol/L (98-107) 10/14/19 12:50 Carbon Dioxide 24 mmol/L (22-30) 10/14/19 12:50 Anion Gap 9 mmol/L 10/14/19 12:50 BUN 18 mg/dL (7-17) H 10/14/19 12:50 Creatinine 0.85 mg/dL (0.52-1.04) 10/14/19 12:50 Est GFR (CKD-EPI)AfAm 74 (>60 ml/min/1.73 sqM) 10/14/19 12:50 Est GFR (CKD-EPI)NonAf 64 (>60 ml/min/1.73 sqM) 10/14/19 12:50 Glucose 101 mg/dL (74-99) H 10/14/19 12:50 Calcium 9.1 mg/dL (8.4-10.2) 10/14/19 12:50 Magnesium 2.0 mg/dL (1.6-2.3) 10/14/19 12:50 Total Bilirubin 0.9 mg/dL (0.2-1.3) 10/14/19 12:50 AST 16 U/L (14-36) 10/14/19 12:50 ALT 9 U/L (4-34) 10/14/19 12:50 Alkaline Phosphatase 85 U/L (38-126) 10/14/19 12:50 Troponin I <0.012 ng/mL (0.000-0.034) 10/15/19 01:42 NT-Pro-B Natriuret Pep 642 pg/mL 10/14/19 12:50 Total Protein 6.4 g/dL (6.3-8.2) 10/14/19 12:50 Albumin 3.6 g/dL (3.5-5.0) 10/14/19 12:50 Triglycerides 134 mg/dL (<150) 10/15/19 06:33 Cholesterol 92 mg/dL (<200) 10/15/19 06:33 LDL Cholesterol, Calc 32 mg/dL (0-99) 10/15/19 06:33 HDL Cholesterol 33 mg/dL (40-60) L 10/15/19 06:33 Amylase 37 U/L (30-110) 10/14/19 12:50 Lipase 48 U/L (23-300) 10/14/19 12:50 Urine Color Light Yellow 10/14/19 17:34 Urine Appearance Clear (Clear) 10/14/19 17:34 Urine pH 5.5 (5.0-8.0) 10/14/19 17:34 Ur Specific [place] >1.050 (1.001-1.035) H 10/14/19 17:34 Urine Protein Negative (Negative) 10/14/19 17:34 Urine Glucose (UA) Negative (Negative) 10/14/19 17:34 Urine Ketones Negative (Negative) 10/14/19 17:34 Urine Blood Negative (Negative) 10/14/19 17:34 Urine Nitrite Negative (Negative) 10/14/19 17:34 Urine Bilirubin Negative (Negative) 10/14/19 17:34 Urine Urobilinogen <2.0 mg/dL (<2.0) 10/14/19 17:34 Ur Leukocyte Esterase Negative (Negative) 10/14/19 17:34 Thrombosis Risk Factor Assmnt - DVT/VTE Prophylaxis DVT/VTE Prophylaxis: Low risk, early ambulation encouraged - Choose All That Apply Other Risk Factors: Yes Each Risk Factor Represents 3 Points: Age 75 years or older Thrombosis Risk Factor Assessment Total Risk Factor Score: 3 Thrombosis Risk Factor Assessment Level: Moderate Risk Assessment and Plan Plan: 1. Atypical chest pain, with underlying shortness of breath on exertion, biliary colic cannot be ruled out as she does have symptoms of bleed disease to include early satiety, right upper quadrant pain with change patient to the posterior scapula, and burping. Ultrasound of the abdomen to be done, stress echo was requested from cardiology, which she is going to be done this Thursday, low-fat diet, lipase is normal transaminases normal, patient had an unremarkable colonoscopy several years ago with Dr. Kelly, in no GI symptoms. Pertaining to GI bleed at this time. 2. Gastritis with esophagitis and hiatal hernia, suspect from pill esophagitis, patient is on omeprazole 40 mg which was started, 3 Leukocytosis, with elevated platelet count, unknown significance has predominant lymphocytes, repeat WBC count with peripheral smear, could be related to recent steroid injection given to HER-2 weeks prior. Next 5. Hypertension on amlodipine 5 mg daily, Tenormin 50 mg at bedtime, losartan 100 mg daily 6. Hyperlipidemia on Crestor 20 mg daily, lipid panel also requested 7. Chronic insomnia requiring hypnotic agents, on Restoril 15 mg at bedtime from home, this can be resumed, however long-term use is advised secondary beer"s list advisory for senior safety 8. Osteomyelitis, on gabapentin meloxicam, no changes made GI prophylaxis omeprazole 40 mg daily this would be continued for 30 days post discharge for esophagitis DVT prophylaxis Lovenox subcu
--- NOTE | 2019-10-15 17:00 | ECHOF ---
Referral Reason:chest pain MEASUREMENTS -------- HEIGHT: 157.5 cm WEIGHT: 81.6 kg BP: 125/63 RVIDd: 3.1 cm (< 3.3) IVSd: 1.2 cm (0.6 - 1.1) LVIDd: 3.7 cm (3.9 - 5.3) LVPWd: 1.1 cm (0.6 - 1.1) IVSs: 1.7 cm LVIDs: 2.4 cm LVPWs: 1.5 cm LA Diam: 3.3 cm (2.7 - 3.8) LAESV Index (A-L): 21.12 ml/m Ao Diam: 3.2 cm (2.0 - 3.7) AV Cusp: 1.3 cm (1.5 - 2.6) MV EXCURSION: 8.460 mm (> 18.000) MV EF SLOPE: 28 mm/s (70 - 150) EPSS: 0.6 cm MV E Usman: 0.91 m/s MV DecT: 427 ms MV A Usman: 1.34 m/s MV E/A Ratio: 0.68 FINDINGS -------- Sinus rhythm. This was a technically adequate study. The left ventricular size is normal. There is borderline concentric left ventricular hypertrophy. Overall left ventricular systolic function is normal with, an EF between 60 - 65 %. The right ventricle is normal in size. Normal LA size by volume 22+/-6 ml/m2. The right atrium is normal in size. Interatrial and interventricular septum intact. There is mild aortic valve sclerosis. Mild mitral annular calcification present. The tricuspid valve appears structurally normal. There is no pulmonic regurgitation present. The aortic root size is normal. Normal inferior vena cava with normal inspiratory collapse consistent with estimated right atrial pre ssure of 5 mmHg. There is no pericardial effusion. CONCLUSIONS -------- 1. Sinus rhythm. 2. This was a technically adequate study. 3. The left ventricular size is normal. 4. There is borderline concentric left ventricular hypertrophy. 5. Overall left ventricular systolic function is normal with, an EF between 60 - 65 %. 6. The right ventricle is normal in size. 7. Normal LA size by volume 22+/-6 ml/m2. 8. The right atrium is normal in size. 9. Interatrial and interventricular septum intact. 10. There is mild aortic valve sclerosis. 11. Mild mitral annular calcification present. 12. The tricuspid valve appears structurally normal. 13. There is no pulmonic regurgitation present. 14. The aortic root size is normal. 15. Normal inferior vena cava with normal inspiratory collapse consistent with estimated right atrial pressure of 5 mmHg. 16. There is no pericardial effusion. RAW STOCK MACHINE LOADER: Janelle Peterson RDCS
[2019-10-15] MEDS: ENOXAPARIN 40 MG/0.4 ML SYRINGE SQ SCH (18:02)
--- NOTE | 2019-10-15 19:04 | US ---
EXAMINATION TYPE: US abdomen limited DATE OF EXAM: 10/15/2019 COMPARISON: NONE CLINICAL HISTORY: abd pain ruq. Pain EXAM MEASUREMENTS: Liver Length: 15.2 cm Gallbladder Wall: 0.3 cm CBD: 0.5 cm Right Kidney: 9.3 x 4.0 x 3.8 cm Pancreas: Obscured by bowel gas Liver: Heterogeneous, otherwise appeared wnl Gallbladder: Sludge and/or small gallstones at dependent portion of fundus, wall thickness upper ng its of normal Evidence for sonographic Miller's sign: Yes CBD: wnl Right Kidney: wnl IMPRESSION: Mild gallbladder wall thickening and small gallstones are probably present.. No dilated d ucts. No focal liver defect.
[2019-10-15] MEDS: ATORVASTATIN 40 MG TAB PO SCH (19:56)
[2019-10-15] MEDS: ATENOLOL 50 MG TAB PO SCH (19:57)
[2019-10-15] MEDS: amLODIPine 5 MG TAB PO SCH (19:57)
[2019-10-15] MEDS: TEMAZEPAM 15 MG CAP PO PRN (19:59)
[2019-10-16] MEDS: NITROGLYCERIN OINT 1 INCH/GM PACKET TOPICAL SCH ×3 (05:32→16:11)
[2019-10-16 06:07] LABS: HGB 12.1 gm/dL (11.4-16.0); MCH 30.5 pg (25.0-35.0); MCHC 31.1 g/dL (31.0-37.0); Platelet Count 467 k/uL (150-450); RBC 3.98 m/uL (3.80-5.40); RDW 12.5 % (11.5-15.5); WBC 16.2 k/uL (3.8-10.6)
[2019-10-16 06:18] LABS: Albumin 3.2 g/dL (3.5-5.0); Potassium 4.2 mmol/L (3.5-5.1); Total Bilirubin 0.6 mg/dL (0.2-1.3); Total Protein 5.9 g/dL (6.3-8.2)
[2019-10-16] MEDS: PANTOPRAZOLE 40 MG TABLET PO SCH (09:57)
[2019-10-16] MEDS: GABAPENTIN 100 MG CAP PO SCH ×2 (09:57→20:04)
[2019-10-16] MEDS: LOSARTAN 50 MG TAB PO SCH (09:57)
[2019-10-16] MEDS: ASPIRIN 81 MG PO SCH (09:57)
[2019-10-16] MEDS: ENOXAPARIN 40 MG/0.4 ML SYRINGE SQ SCH (09:57)
[2019-10-16] MEDS: MECLIZINE 25 MG TAB PO PRN ×2 (10:13→20:04)
[2019-10-16] MEDS: ACETAMINOPHEN TAB 325 MG TAB PO PRN ×2 (10:13→21:39)
--- NOTE | 2019-10-16 11:00 | PN ---
PROGRESS NOTE Dayami is an 84-year-old lady that is admitted to hospital with chest pain and ruled out for myocardial infarction. She had another episode of chest discomfort yesterday and took sublingual nitroglycerin with improvement in her symptoms. I advised the patient to undergo cardiac catheterization for further evaluation. I am going to set it up and do it tomorrow. On exam today, she is comfortable at rest. Vital signs are stable. There is no jugular venous distention. Carotid upstroke is normal. Chest exam reveals good air entry bilaterally. Heart exam reveals first and second heart sounds. No gallop. Exam of extremities did not reveal any edema. Peripheral pulses are felt. The patient has elevated white cell count, but this I think is related to the steroid injection that she had recently. Her abdominal ultrasound shows thickened gallbladder. ASSESSMENT: Precordial chest pain, rule out coronary artery disease. PLAN: Patient will undergo cardiac catheterization tomorrow. MMODL / IJN: [id number] /
--- NOTE | 2019-10-16 13:06 | P.PN ---
Subjective Progress Note Date: 10/16/19 This is an 84-year-old pleasant lady patient of Dr. Ruiz. He has underlying she has underlying history of hypertension hyperlipidemia, osteoarthritis, spinal stenosis, admitted to the emergency room secondary to substernal discomfort with radiation to the right shoulder blade, this has been worse for the past one day, she was also sick in September for which she was prescribed an antibiotic no steroids, however since then she had issues regarding esophagitis, with early satiety, and gastritis symptoms. Patient denies any diarrhea no cough no fever, has chills, she also received but that intramuscular injection with steroid or a trigger injection for steroids approximately 2 weeks prior to admission. Her last colonoscopy weiner with Dr. Kelly unknown year, patient denies any melena hematochezia dysphagia no edema, has shortness of breath and right shoulder pain. 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 patient is admitted for chest pain shortness of breath, cannot rule out acute on chronic cholecystitis, with leukocytosis, cardiology is consulted, ultrasound of the gallbladder is requested, and a stress echocardiogram from cardiology to be done on thursday patient is on nitrate 6, through a patch which has helped, and is on aspirin and not on iv heparin, beta blockers and statins are continued 10/16: Patient has been scheduled for heart catheterization on Thursday. Patient states she is feeling better, no chest pain. No indigestion or pain in her shoulders. Abdominal ultrasound revealed mild gallbladder wall thickening and small gallstones are probably present. No dilated ducts. No focal liver defect. Review of Systems Constitutional: Reports as per HPI, Denies anorexia, Denies chills, Denies chronic headaches, Denies chronic pain, Denies daytime sleepiness, Denies fatigue, Denies fever, Denies lethargy, Denies malaise, Denies night sweats, Denies poor appetite, Denies sweats, Denies weakness, Denies weight gain, Denies weight loss Ears, nose, mouth and throat: Reports as per HPI Cardiovascular: Reports as per HPI, denies chest pain, Reports decreased exercise tolerance, Reports dyspnea on exertion, Denies claudication, Denies edema, Denies high blood pressure, Denies irregular heart beat, Denies leg edema, Denies lightheadedness, Denies orthopnea, Denies palpitations, Denies paroxysmal nocturnal dyspnea, Denies phlebitis, Denies rapid heart beat, Denies shortness of breath, Denies syncope Respiratory: Denies as per HPI, Denies congestion, Denies cough, Denies cough with sputum, Denies dyspnea, Denies excessive sputum, Denies hemoptysis, Denies home oxygen, Denies pain, Denies pain on inspiration, Denies pleurisy, Denies respiratory infections, Denies sleep apnea, Denies snoring, Denies wheezing Gastrointestinal: Reports as per HPI Genitourinary: Reports as per HPI, Denies abnormal vaginal bleeding, Denies decreased libido, Denies difficulty conceiving, Denies difficulty voiding, Denies dysmenorrhea, Denies dyspareunia, Denies dysuria, Denies flank pain, Denies genital sores, Denies hematuria, Denies hot flashes, Denies incomplete emptying, Denies kidney stones, Denies menorrhagia, Denies mixed incontinence, Denies nocturia, Denies pelvic pain, Denies post void dribbling, Denies , Denies prolapse symptoms, Denies stress incontinence, Denies urge incontinence, Denies urgency, Denies urinary frequency, Denies vaginal discharge, Denies vaginal dryness, Denies vaginal itching, Denies vaginal odor Menstruation: Reports as per HPI, Denies amenorrhea, Denies amenorrhea on BC, Denies currently menstrual, Denies cycle < 21 days, Denies cycle > 35 days, Denies cycle variable, Denies menses 1-7 days, Denies menses 8 or > days, Denies menses variable, Denies period heavy, Denies period light, Denies period normal, Denies period spotting, Denies post hysterectomy, Denies postmenopausal, Denies premenarcheal Musculoskeletal: Reports as per HPI, Denies arm numbness/tingling, Denies atrophy, Denies fractures, Denies frequent falls, Denies gait dysfunction, Denies hot joints, Denies leg numbness/tingling, Denies limitation of motion, Denies loss of height, Denies low back pain, Denies morning stiffness, Denies muscle cramps, Denies muscle weakness, Denies myalgias, Denies neck pain, Denies neck stiffness, Denies prior amputations, Denies redness of joints, Denies shooting arm pain, Denies shooting leg pain Integumentary: Reports as per HPI Neurological: Reports as per HPI, Denies aphasia, Denies ataxia, Denies balance difficulties, Denies burning pain, Denies change in mentation, Denies change in smell/taste, Denies change in speech, Denies confusion, Denies convulsions, Denies double vision, Denies gait dysfunction, Denies head injury, Denies h eadaches, Denies hearing difficulties, Denies lack of coordination, Denies loss of vision, Denies memory loss, Denies migraines, Denies motor disturbance, Denies numbness, Denies paralysis, Denies paresthesias, Denies seizures, Denies sensory deficit, Denies spasticity, Denies syncope, Denies tic, Denies tingling, Denies transient paralysis, Denies tremors, Denies vertigo, Denies weakness, Denies visual changes Endocrine: Reports as per HPI, Denies cold intolerance, Denies deepening of the voice, Denies excessive sweating, Denies excessive thirst, Denies fatigue, Denie s flushing, Denies heat intolerance, Denies high blood sugars, Denies increase in ring/shoe/hat size, Denies low blood sugars, Denies nocturia, Denies palpitations, Denies polydipsia, Denies polyphagia, Denies polyuria, Denies proptosis, Denies recent glucocorticoid use, Denies thyroid mass, Denies weight change Hematologic/Lymphatic: Reports as per HPI Allergic/Immunologic: Reports as per HPI, Denies allergic rhinitis, Denies anaphylaxis, Denies angioedema, Denies gluten intolerance, Denies persistent infections, Denies seasonal allergies, Denies urticaria, Denies wheezing Objective - Vital Signs Vital signs: Vital Signs Temp 99.2 F 10/16/19 06:43 Pulse 65 10/16/19 06:43 Resp 18 10/16/19 12:00 BP 111/62 10/16/19 06:43 Pulse Ox 94 L 10/16/19 06:43 Intake & Output 10/15/19 10/16/19 10/16/19 18:59 06:59 18:59 Intake Total 600 480 Balance 600 480 Intake: Oral 600 480 Other: Voiding Method Toilet Toilet Toilet # Voids 2 1 2 - Exam General appearance: cooperative, no acute distress, resting in chair - EENT Eyes: EOMI, PERRLA, normal appearance ENT: NA/AT, normal oropharynx - Neck Neck: normal ROM - Respiratory Respiratory: bilateral: CTA, negative: diminished, dullness, rales - Cardiovascular Rhythm: regular Heart sounds: normal: S1, S2 Abnormal Heart Sounds: no systolic murmur, no diastolic murmur, no rub, no S3 Ga llop, no S4 Gallop, no click, no other - Gastrointestinal General gastrointestinal: normal bowel sounds - Integumentary Integumentary: normal, normal turgor - Neurologic Neurologic: CNII-XII intact - Musculoskeletal Musculoskeletal: gait normal, strength equal bilaterally - Psychiatric Psychiatric: A&O x's 3, appropriate affect, intact judgment & insight - Labs CBC & Chem 7: 10/16/19 05:48 10/16/19 05:48 Labs: Abnormal Lab Results - Last 24 Hours (Table) 10/16/19 10/16/19 Range/Units 05:48 05:48 WBC 16.2 H (3.8-10.6) k/uL Plt Count 467 H (150-450) k/uL Sodium 134 L (137-145) mmol/L Total Protein 5.9 L (6.3-8.2) g/dL Albumin 3.2 L (3.5-5.0) g/dL Microbiology - Last 24 Hours (Table) 10/14/19 16:44 Blood Culture - Preliminary Blood No Growth after 24 hours Assessment and Plan Plan: 1. Atypical chest pain, with underlying shortness of breath on exertion, biliary colic cannot be ruled out as she does have symptoms of bleed disease to include early satiety, right upper quadrant pain with change patient to the posterior scapula, and burping. Ultrasound of the abdomen to be done, stress echo was requested from cardiology, which she is going to be done this Thursday, low-fat diet, lipase is normal transaminases normal, patient had an unremarkable colonoscopy several years ago with Dr. Kelly, in no GI symptoms. Pertaining to GI bleed at this time. Patient is scheduled for heart catheterization tomorrow with Dr. Tao 2. Gastritis with esophagitis and hiatal hernia, suspect from pill esophagitis, patient is on omeprazole 40 mg which was started, 3 Leukocytosis, with elevated platelet count, unknown significance has predominant lymphocytes, repeat WBC count with peripheral smear, could be re lated to recent steroid injection given to HER-2 weeks prior. Next 5. Hypertension on amlodipine 5 mg daily, Tenormin 50 mg at bedtime, losartan 100 mg daily 6. Hyperlipidemia on Crestor 20 mg daily, lipid panel also requested 7. Chronic insomnia requiring hypnotic agents, on Restoril 15 mg at bedtime from home, this can be resumed, however long-term use is advised secondary beer"s list advisory for senior safety 8. Osteomyelitis, on gabapentin meloxicam, no changes made GI prophylaxis omeprazole 40 mg daily this would be continued for 30 days post discharge for esophagitis DVT prophylaxis Lovenox subcu Impression and plan of care have been directed as dictated by the signing rolly morel. Zonia Lopez nurse practitioner acting as scribe for signing physician.
[2019-10-16 13:53] LABS: Eosinophils # (M) 0.49 k/uL (0-0.7); Lymphocytes # (M) 2.27 k/uL (1.0-4.8); Neutrophils # (M) 12.15 k/uL (1.3-7.7); Neutrophils % (M) 75 %; Nucleated Red Blood Cells 0 /100 WBC (0-0); Total Cells Counted 100
[2019-10-16] MEDS ORDERED: ALPRAZolam 0.25 MG TAB PO PRN (14:03)
[2019-10-16] MEDS ORDERED: NITROGLYCERIN SL TABS 0.4 MG TAB SUBLINGUAL PRN (14:03)
[2019-10-16] MEDS ORDERED: ALPRAZolam 0.5 MG TAB PO PRN (14:03)
[2019-10-16] MEDS: ATENOLOL 50 MG TAB PO SCH (20:03)
[2019-10-16] MEDS: ATORVASTATIN 40 MG TAB PO SCH (20:04)
[2019-10-16] MEDS: TEMAZEPAM 15 MG CAP PO PRN (21:40)
[2019-10-17] MEDS: NITROGLYCERIN OINT 1 INCH/GM PACKET TOPICAL SCH ×3 (02:45→18:27)
[2019-10-17] MEDS: PANTOPRAZOLE 40 MG TABLET PO SCH (05:52)
[2019-10-17] MEDS: GABAPENTIN 100 MG CAP PO SCH ×2 (05:52→20:03)
[2019-10-17] MEDS: LOSARTAN 50 MG TAB PO SCH (05:52)
[2019-10-17] MEDS ORDERED: DOBUTamine DRIP for NUC MED 500 MG in DEXTROSE/WATER 1 250ML.BAG IV ONE (06:00)
[2019-10-17] MEDS ORDERED: SODIUM CHLORIDE 0.9% 1,000 ML in EMPTY BAG 1 BAG IV ONE (06:00)
[2019-10-17] MEDS ORDERED: ATORVASTATIN 80 MG TAB PO ONE (06:00)
[2019-10-17] MEDS ORDERED: ASPIRIN 325 MG TAB PO ONE (06:00)
[2019-10-17] MEDS ORDERED: IV FLUID CONTINUATION 900 ML IV ONE (09:00)
[2019-10-17] MEDS ORDERED: LIDOCAINE 1% INJ 10MG/ML (20 ML MDV) ONE ×2 (09:22→11:44)
[2019-10-17] MEDS: MIDAZOLAM 2 MG/2 ML VIAL IVP ONE ×2 (09:39→09:59)
[2019-10-17] MEDS ORDERED: LIDOCAINE 1% INJ 10MG/ML (20 ML MDV) SQ ONE (09:41)
[2019-10-17] MEDS ORDERED: IOPAMIDOL-370 125ML BTL INJ ONE (09:59)
--- NOTE | 2019-10-17 10:24 | CC ---
CARDIAC CATHETERIZATION REPORT INDICATION: Unstable angina. PROCEDURE NOTE: After obtaining informed consent, left heart catheterization and coronary angiogram are performed via the right femoral artery using standard Lori catheters. The patient tolerated the procedure well without any obvious immediate complications. Patient received moderate conscious sedation. Total sedation time was 13 minutes. FINDINGS: 1. HEMODYNAMICS: Left ventricular end-diastolic pressure is 12 mm. There is no significant gradient across the aortic valve. 2. LEFT VENTRICULOGRAM: Left ventriculogram is not performed. 3. ANGIOGRAPHIC DATA: Left Main Coronary Artery: Left main coronary artery is a normal-sized vessel and is free of stenosis. Divides into left anterior descending coronary artery and circumflex coronary artery. LAD shows a 70% to 80% focal stenosis in its midportion. Circumflex coronary artery and its branches are free of significant stenosis. Right coronary artery is free of significant disease. CONCLUSIONS: A 70% to 80% focal stenosis involving mid LAD. PLAN: Patient will undergo angioplasty with stent placement of the same. MMODL / IJN: [id number] /
[2019-10-17] MEDS ORDERED: HEPARIN SODIUM 1,000 UN/ML (10ML VL) ONE (12:04)
[2019-10-17] MEDS: NITROGLYCERIN 1000MCG/10ML SYRINGE INTRACORON ONE ×2 (12:05→12:49)
[2019-10-17] MEDS ORDERED: IV FLUID CONTINUATION 800 ML IV ONE (12:07)
[2019-10-17] MEDS ORDERED: MIDAZOLAM 2 MG/2 ML VIAL IV ONE (12:07)
[2019-10-17] MEDS ORDERED: ADENOSINE 90 MG in SODIUM CHLORIDE 0.9% 60 ML IVP ONE (12:15)
[2019-10-17] MEDS ORDERED: TICAGRELOR 90 MG TAB ONE (12:36)
[2019-10-17] MEDS ORDERED: IOPAMIDOL-370 100ML BTL INJ ONE ×3 (12:37→12:53)
[2019-10-17] MEDS ORDERED: TICAGRELOR 90 MG TAB PO ONE (12:37)
[2019-10-17] MEDS ORDERED: ATROPINE SULFATE 0.1 MG/ML 10ML SYRINGE IV PRN (12:54)
[2019-10-17] MEDS ORDERED: ZOLPIDEM 5 MG TAB PO PRN (12:54)
[2019-10-17] MEDS ORDERED: MAG HYDROX/AL HYDROX/SIMETH 30 ML CUP PO PRN (12:54)
[2019-10-17] MEDS ORDERED: RX INFO: IV CONTRAST WAS GIVEN 1 EACH MISC MISCELLANE PRN (12:54)
[2019-10-17] MEDS ORDERED: NITROGLYCERIN SL TABS 0.4 MG TAB SUBLINGUAL PRN (12:54)
--- NOTE | 2019-10-17 14:11 | P.PN ---
Subjective Progress Note Date: 10/17/19 This is an 84-year-old pleasant lady patient of Dr. Ruiz. He has underlying she has underlying history of hypertension hyperlipidemia, osteoarthritis, spinal stenosis, admitted to the emergency room secondary to substernal discomfort with radiation to the right shoulder blade, this has been worse for the past one day, she was also sick in September for which she was prescribed an antibiotic no steroids, however since then she had issues regarding esophagitis, with early satiety, and gastritis symptoms. Patient denies any diarrhea no cough no fever, has chills, she also received but that intramuscular injection with steroid or a trigger injection for steroids approximately 2 weeks prior to admission. Her last colonoscopy weiner with Dr. Kelly unknown year, patient denies any melena hematochezia dysphagia no edema, has shortness of breath and right shoulder pain. 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 patient is admitted for chest pain shortness of breath, cannot rule out acute on chronic cholecystitis, with leukocytosis, cardiology is consulted, ultrasound of the gallbladder is requested, and a stress echocardiogram from cardiology to be done on thursday patient is on nitrate 6, through a patch which has helped, and is on aspirin and not on iv heparin, beta blockers and statins are continued 10/16: Patient has been scheduled for heart catheterization on Thursday. Patient states she is feeling better, no chest pain. No indigestion or pain in her shoulders. Abdominal ultrasound revealed mild gallbladder wall thickening and small gallstones are probably present. No dilated ducts. No focal liver defect. 10/17: Patient underwent heart catheterization today which revealed a 7080% stenosis of the mid LAD. Patient is scheduled also for PCI. Review of Systems Constitutional: Reports as per HPI, Denies anorexia, Denies chills, Denies chronic headaches, Denies chronic pain, Denies daytime sleepiness, Denies fatigue, Denies fever, Denies lethargy, Denies malaise, Denies night sweats, Denies poor appetite, Denies sweats, Denies weakness, Denies weight gain, Denies weight loss Ears, nose, mouth and throat: Reports as per HPI Cardiovascular: Reports as per HPI, denies chest pain, Reports decreased exercise tolerance, Reports dyspnea on exertion, Denies claudication, Denies edema, Denies high blood pressure, Denies irregular heart beat, Denies leg edema, Denies lightheadedness, Denies orthopnea, Denies palpitations, Denies paroxysmal nocturnal dyspnea, Denies phlebitis, Denies rapid heart beat, Denies shortness of breath, Denies syncope Respiratory: Denies as per HPI, Denies congestion, Denies cough, Denies cough with sputum, Denies dyspnea, Denies excessive sputum, Denies hemoptysis, Denies home oxygen, Denies pain, Denies pain on inspiration, Denies pleurisy, Denies respiratory infections, Denies sleep apnea, Denies snoring, Denies wheezing Gastrointestinal: Reports as per HPI Genitourinary: Reports as per HPI, Denies abnormal vaginal bleeding, Denies decreased libido, Denies difficulty conceiving, Denies difficulty voiding, Denies dysmenorrhea, Denies dyspareunia, Denies dysuria, Denies flank pain, Denies genital sores, Denies hematuria, Denies hot flashes, Denies incomplete emptying, Denies kidney stones, Denies menorrhagia, Denies mixed incontinence, Denies nocturia, Denies pelvic pain, Denies post void dribbling, Denies , Denies prolapse symptoms, Denies stress incontinence, Denies urge incontinence, Denies urgency, Denies urinary frequency, Denies vaginal di scharge, Denies vaginal dryness, Denies vaginal itching, Denies vaginal odor Menstruation: Reports as per HPI, Denies amenorrhea, Denies amenorrhea on BC, Denies currently menstrual, Denies cycle < 21 days, Denies cycle > 35 days, Denies cycle variable, Denies menses 1-7 days, Denies menses 8 or > days, Denies menses variable, Denies period heavy, Denies period light, Denies period normal, Denies period spotting, Denies post hysterectomy, Denies postmenopausal, Denies premenarcheal Musculoskeletal: Reports as per HPI, Denies arm numbness/tingling, Denies atrophy, Denies fractures, Denies frequent falls, Denies gait dysfunction, Denies hot joints, Denies leg numbness/tingling, Denies limitation of motion, Denies loss of height, Denies low back pain, Denies morning stiffness, Denies muscle cramps, Denies muscle weakness, Denies myalgias, Denies neck pain, Denies neck stiffness, Denies prior amputations, Denies redness of joints, Denies sh ooting arm pain, Denies shooting leg pain Integumentary: Reports as per HPI Neurological: Reports as per HPI, Denies aphasia, Denies ataxia, Denies balance difficulties, Denies burning pain, Denies change in mentation, Denies change in smell/taste, Denies change in speech, Denies confusion, Denies convulsions, Denies double vision, Denies gait dysfunction, Denies head injury, Denies headaches, Denies hearing difficulties, Denies lack of coordination, Denies loss of vision, Denies memory loss, Denies migraines, Denies motor disturbance, Denies numbness, Denies paralysis, Denies paresthesias, Denies seizures, Denies sensory deficit, Denies spasticity, Denies syncope, Denies tic, Denies tingling, Denies transient paralysis, Denies tremors, Denies vertigo, Denies weakness, Denies visual changes Endocrine: Reports as per HPI, Denies cold intolerance, Denies deepening of the voice, Denies excessive sweating, Denies excessive thirst, Denies fatigue, Denies flushing, Denies heat intolerance, Denies high blood sugars, Denies increase in ring/shoe/hat size, Denies low blood sugars, Denies nocturia, Denies palpitations, Denies polydipsia, Denies polyphagia, Denies polyuria, Denies proptosis, Denies recent glucocorticoid use, Denies thyroid mass, Denies weight change Hematologic/Lymphatic: Reports as per HPI Allergic/Immunologic: Reports as per HPI, Denies allergic rhinitis, Denies anaphylaxis, Denies angioedema, Denies gluten intolerance, Denies persistent infections, Denies seasonal allergies, Denies urticaria, Denies wheezing Objective - Vital Signs Vital signs: Vital Signs Temp 97.6 F 10/17/19 07:10 Pulse 60 10/17/19 10:43 Resp 16 10/17/19 10:43 BP 131/65 10/17/19 10:43 Pulse Ox 97 10/17/19 10:43 Intake & Output 10/16/19 10/17/19 10/17/19 18:59 06:59 18:59 Intake Total 480 610 Balance 480 610 Weight 81.9 kg Intake: IV 610 Oral 480 Other: Voiding Method Toilet Toilet # Voids 2 1 1 - Exam General appearance: cooperative, no acute distress, resting in chair - EENT Eyes: EOMI, PERRLA, normal appearance ENT: NA/AT, normal oropharynx - Neck Neck: normal ROM - Respiratory Respiratory: bilateral: CTA, negative: diminished, dullness, rales - Cardiovascular Rhythm: regular Heart sounds: normal: S1, S2 Abnormal Heart Sounds: no systolic murmur, no diastolic murmur, no rub, no S3 Gallop, no S4 Gallop, no click, no other - Gastrointestinal General gastrointestinal: normal bowel sounds - Integumentary Integumentary: normal, normal turgor - Neurologic Neurologic: CNII-XII intact - Musculoskeletal Musculoskeletal: gait normal, strength equal bilaterally - Psychiatric Psychiatric: A&O x's 3, appropriate affect, intact judgment & insight - Labs CBC & Chem 7: 10/16/19 05:48 10/16/19 05:48 Labs: Microbiology - Last 24 Hours (Table) 10/14/19 16:44 Blood Culture - Preliminary Blood No Growth after 48 hours Assessment and Plan Plan: 1. Atypical chest pain, with underlying shortness of breath on exertion, biliary colic cannot be ruled out as she does have symptoms of bleed disease to include early satiety, right upper quadrant pain with change patient to the posterior scapula, and burping. Ultrasound of the abdomen to be done, stress echo was requested from cardiology, which she is going to be done this Thursday, low-fat diet, lipase is normal transaminases normal, patient had an unremarkable colonoscopy several years ago with Dr. Kelly, in no GI symptoms. Pertaining to GI bleed at this time. Patient underwent heart catheterization with Dr. Kunz. 2. Gastritis with esophagitis and hiatal hernia, suspect from pill esophagitis, patient is on omeprazole 40 mg which was started, 3 Leukocytosis, with elevated platelet count, unknown significance has predominant lymphocytes, repeat WBC count with peripheral smear, could be related to recent steroid injection given to HER-2 weeks prior. Next 4. Hypertension on amlodipine 5 mg daily, Tenormin 50 mg at bedtime, losartan 100 mg daily 5. Hyperlipidemia on Crestor 20 mg daily, lipid panel also requested 6. Chronic insomnia requiring hypnotic agents, on Restoril 15 mg at bedtime from home, this can be resumed, however long-term use is advised secondary beer"s list advisory for senior safety 7. Osteomyelitis, on gabapentin meloxicam, no changes made 8. GI prophylaxis omeprazole 40 mg daily this would be continued for 30 days post discharge for esophagitis 9. DVT prophylaxis Lovenox subcu 10. Leukocytosis not related to infection. Plan for outpatient follow-up with Dr. Bravo. Impression and plan of care have been directed as dictated by the signing physician. Zonia Lopez nurse practitioner acting as scribe for signing physician.
[2019-10-17] MEDS: ENOXAPARIN 40 MG/0.4 ML SYRINGE SQ SCH (17:07)
[2019-10-17] MEDS: SODIUM CHLORIDE 0.9% 1,000 ML IV SCH (17:08)
[2019-10-17] MEDS: MECLIZINE 25 MG TAB PO PRN (20:03)
[2019-10-17] MEDS: amLODIPine 5 MG TAB PO SCH (20:03)
[2019-10-17] MEDS: TEMAZEPAM 15 MG CAP PO PRN (20:03)
[2019-10-17] MEDS: ACETAMINOPHEN TAB 325 MG TAB PO PRN (20:06)
[2019-10-18] MEDS: SODIUM CHLORIDE 0.9% 1,000 ML IV SCH (04:23)
[2019-10-18] MEDS: PANTOPRAZOLE 40 MG TABLET PO SCH (06:12)
--- NOTE | 2019-10-18 06:47 | CC ---
CARDIAC CATHETERIZATION REPORT DATE OF SERVICE: 10/17/2019. PROCEDURES PERFORMED: 1. Fractional flow reserve assessment of left anterior descending coronary artery. 2. PTCA and stenting of mid left anterior descending coronary artery with 2 drug- eluting stents. PERFORMED BY: Dr. Lizzeth Parker. SEDATION: Moderate conscious sedation time was 50 minutes. Patient was administered Versed. Oxygen saturation, hemodynamics and EKG were monitored closely. CLINICAL INFORMATION: Mrs. Dayami Chen is an 84-year-old lady with a history of hypertension and hyperlipidemia who was evaluated by Dr. Kunz and performed cardiac catheterization today which revealed a long area of moderate disease in the mid LAD. There was moderate calcification as well. The patient was advised intervention. I reviewed the angiograms and suggested that I would perform a fractional flow reserve assessment and if indicated, proceed with PCI. This was explained to the patient. PROCEDURE NOTE: The existing 6-[place] introducer in the right femoral artery was used to perform the procedure. I used a JL3.5 guide catheter to cannulate the left coronary artery. I used a Verrata wire and using this wire, I crossed the LAD lesion kept it way distally. I performed an IFR and with this came out to be 0.87. I then performed an FFR and the FFR was less than 0.76. I proceeded to perform intervention. Predilatation was performed with a 2.25 caliber 12 mm NC Trek balloon involving the mid LAD. I then deployed an 18 mm long 2.5 caliber Xience stent at 11 atmospheres. Excellent angiographic result was achieved, but the distal end of the stent appeared to be slightly hazy with a question of edge dissection. The wire was taken out and a new run- through wire was advanced. The distal stented area was then addressed with a 2.25 caliber 8 mm Xience stent that was deployed at 11 atmospheres. Excellent angiographic result was achieved. The distal hazy area was addressed very nicely. The patient did not have any chest pain but had mild EKG changes. Excellent angiographic result without complication was achieved. Patient received intravenous heparin and ACT was about 265. She also received Brilinta 180 mg b.i.d. The sheath was taken out and Angio-Seal device used to secure hemostasis and she was sent to the room in a stable condition. Results were discussed with the patient and her daughter. Excellent angiographic result was achieved with 2 drug-eluting stents in the mid LAD. The patient's FFR was abnormal with less than 0.76, and therefore, PCI was performed. MELVI / HILARY: [id number] /
[2019-10-18 06:50] LABS: Basophils # (A) 0.1 k/uL (0-0.2); Basophils % (A) 1 %; Eosinophils # (A) 0.4 k/uL (0-0.7); Eosinophils % (A) 3 %; HCT 39.9 % (34.0-46.0); HGB 12.3 gm/dL (11.4-16.0); Lymphocytes # (A) 1.8 k/uL (1.0-4.8); Lymphocytes % (A) 17 %; MCH 30.5 pg (25.0-35.0); MCHC 30.9 g/dL (31.0-37.0); MCV 98.5 fL (80.0-100.0); Mean Platelet Volume 7.1; Monocytes # (A) 0.8 k/uL (0-1.0); Monocytes % (A) 7 %; Neutrophils # (A) 7.8 k/uL (1.3-7.7); Neutrophils % (A) 71 %; Platelet Count 437 k/uL (150-450); RBC 4.05 m/uL (3.80-5.40); RDW 12.7 % (11.5-15.5); WBC 11.1 k/uL (3.8-10.6)
[2019-10-18 07:07] LABS: Potassium 4.5 mmol/L (3.5-5.1)
[2019-10-18 08:16] VITALS: RESP 12
[2019-10-18] MEDS: ENOXAPARIN 40 MG/0.4 ML SYRINGE SQ SCH (08:17)
[2019-10-18] MEDS: LOSARTAN 50 MG TAB PO SCH (08:17)
[2019-10-18] MEDS: MECLIZINE 25 MG TAB PO PRN (08:17)
[2019-10-18] MEDS: GABAPENTIN 100 MG CAP PO SCH (08:18)
[2019-10-18] MEDS ORDERED: ATENOLOL 50 MG TAB PO SCH (09:00)
[2019-10-18] MEDS ORDERED: TICAGRELOR 90 MG TAB PO SCH (09:00)
[2019-10-18] MEDS ORDERED: ASPIRIN 81 MG PO SCH (09:00)
[2019-10-18 10:56] VITALS: BMI 32.5
--- NOTE | 2019-10-18 11:26 | P.DS ---
Providers Date of admission: 10/16/19 09:46 Expected date of discharge: 10/18/19 Attending physician: Rudy Beck Consults: 10/14/19 16:22 Consult Physician Urgent Consulting Provider: Alexy Camarena Consult Reason/Comments: cp Do you want consulting provider notified?: Yes 10/17/19 12:54 Consult Physician Routine Consulting Provider: [facility] Consult Reason/Comments: Post Interventional patient Do you want consulting provider notified?: Already Contacted Primary care physician: Mehul Joseph [facility] Course: This is an 84-year-old pleasant lady patient of Dr. Ruiz. He has underlying she has underlying history of hypertension hyperlipidemia, osteoarthritis, spinal stenosis, admitted to the emergency room secondary to substernal discomfort with radiation to the right shoulder blade, this has been worse for the past one day, she was also sick in September for which she was prescribed an antibiotic no steroids, however since then she had issues regarding esophagitis, with early satiety, and gastritis symptoms. Patient denies any diarrhea no cough no fever, has chills, she also received but that intramuscular injection with steroid or a trigger injection for steroids approximately 2 weeks prior to admission. Her last colonoscopy weiner with Dr. Kelly unknown year, patient denies any melena hematochezia dysphagia no edema, has shortness of breath and right shoulder pain. No history of asthma or COPD Emergency room during her evaluation, cardiac biomarkers are normal with 0.012, SAMPLE TAILOR proBNP of 642, CT angiogram shows no pulmonary emboli, has hiatal hernia, there is a right upper lobe subpleural nodule that needs to be scanned in [address], WBC count of 23,000 currently at 17,000, predominantly lymphocytes, platelet count slightly elevated at 471, d-dimer 0.79, glucose 109 transaminitis noted, ua is negative. patient is admitted for chest pain shortness of breath, cannot rule out acute on chronic cholecystitis, with leukocytosis, cardiology is consulted, ultrasound of the gallbladder is requested, and a stress echocardiogram from cardiology to be done on thursday patient is on nitrate 6, through a patch which has helped, and is on aspirin and not on iv heparin, beta blockers and statins are continued 10/16: Patient has been scheduled for heart catheterization on Thursday. Patient states she is feeling better, no chest pain. No indigestion or pain in her shoulders. Abdominal ultrasound revealed mild gallbladder wall thickening and small gallstones are probably present. No dilated ducts. No focal liver defect. 10/17: Patient underwent heart catheterization today which revealed a 7080% stenosis of the mid LAD. Patient is scheduled also for PCI. 10/18: Patient underwent PTCA and stenting of the mid LAD with 2 drug eluding stents by Dr. LILLIE Parker. Patient denies having any chest pain or shortness of breath. Patient is complaining of dizziness for which she has been on meclizine. She has not previously followed with ENT which will be recommended. Patient has been afebrile, heart rate 81, blood pressure 134/70, pulse ox 96% on room air. Repeat blood work reveals a WBC count of 11.1. Electrolytes normal, UN 16 creatinine 0.82. Patient has been started on Brilinta, atorvastatin 80 mg daily, aspirin 81 mg daily. Patient has been cleared for discharge by cardiology. convention manager is checking caused Brilinta. Once this is clarified, patient will be discharged home today in stable condition. Discharge diagnoses: 1. Coronary artery disease status post heart catheterization, PTCA and stenting of the mid LAD with 2 drug-eluting stents 10/17/2019 2. Gastritis with esophagitis and hiatal hernia, suspect from pill esophagitis 3 Leukocytosis 4. Hypertension 5. Hyperlipidemia 6. Chronic insomnia 7. Osteoarthritis Discharge plan: home Impression and plan of care have been directed as dictated by the signing physician. Zonia Lopez nurse practitioner acting as scribe for signing physician. Patient Condition at Discharge: Good Plan - Discharge Summary Discharge Rx Participant: No New Discharge Prescriptions: New Ticagrelor [Brilinta] 90 mg PO BID #60 tab Atorvastatin [Lipitor] 80 mg PO HS #30 tab Nitroglycerin Sl Tabs [Nitrostat] 0.4 mg SUBLINGUAL Q5M PRN #25 tab PRN Reason: Chest Pain Clopidogrel Bisulfate [Plavix] 75 mg PO DAILY #30 tab Clopidogrel Bisulfate [Plavix] 300 mg PO ONETIME #4 tablet Continue Aspirin [Adult Low Dose Aspirin EC] 81 mg PO DAILY amLODIPine [Norvasc] 5 mg PO HS Losartan Potassium [Cozaar] 100 mg PO DAILY Atenolol [Tenormin] 50 mg PO HS ALPRAZolam [Xanax] 0.25 mg PO BID PRN #20 tab PRN Reason: Anxiety Acetaminophen [Tylenol] 650 mg PO Q8H PRN PRN Reason: Pain Temazepam [Restoril] 15 mg PO HS PRN PRN Reason: Insomnia Cbd Oil 1 cap PO HS Baclofen 5 mg PO HS PRN PRN Reason: Pain traMADol HCL [Ultram] 50 mg PO Q8H PRN PRN Reason: Pain Gabapentin [Neurontin] 100 mg PO BID Meclizine [Antivert] 25 mg PO TID PRN #90 tab PRN Reason: Vertigo Discontinued Ubidecarenone [Co Q-10] 200 mg PO DAILY Rosuvastatin [Crestor] 20 mg PO HS Meloxicam [Mobic] 15 mg PO DAILY PRN PRN Reason: Pain Discharge Medication List Aspirin [Adult Low Dose Aspirin EC] 81 mg PO DAILY 02/02/18 [History] Atenolol [Tenormin] 50 mg PO HS 02/02/18 [History] Losartan Potassium [Cozaar] 100 mg PO DAILY 02/02/18 [History] amLODIPine [Norvasc] 5 mg PO HS 02/02/18 [History] ALPRAZolam [Xanax] 0.25 mg PO BID PRN #20 tab 02/08/18 [Rx] Acetaminophen [Tylenol] 650 mg PO Q8H PRN 10/14/19 [History] Baclofen 5 mg PO HS PRN 10/14/19 [History] Cbd Oil 1 cap PO HS 10/14/19 [History] Gabapentin [Neurontin] 100 mg PO BID 10/14/19 [History] Temazepam [Restoril] 15 mg PO HS PRN 10/14/19 [History] traMADol HCL [Ultram] 50 mg PO Q8H PRN 10/14/19 [History] Atorvastatin [Lipitor] 80 mg PO HS #30 tab 10/18/19 [Rx] Clopidogrel Bisulfate [Plavix] 75 mg PO DAILY #30 tab 10/18/19 [Rx] Clopidogrel Bisulfate [Plavix] 300 mg PO ONETIME #4 tablet 10/18/19 [Rx] Meclizine [Antivert] 25 mg PO TID PRN #90 tab 10/18/19 [Rx] Nitroglycerin Sl Tabs [Nitrostat] 0.4 mg SUBLINGUAL Q5M PRN #25 tab 10/18/19 [Rx] Ticagrelor [Brilinta] 90 mg PO BID #60 tab 10/18/19 [Rx] Follow up Appointment(s)/Referral(s): Cody Bravo MD [STAFF PHYSICIAN] - 11/24/19 1:15 pm (Leukocytosis Appointment is at the [address] office. They will send you paperwork prior to appointment) Rehab [facility],Cardiac [NON-STAFF] - (After discharge, you will follow-up with your photographic process worker. Once you have obtained a prescription for cardiac rehab and have completed a stress test, please call [phone] to set up an evaluation.) Stephen Abernathy DO [Doctor of Osteopathic Medicine] - 10/31/19 11:00 am (Dizziness, rule out Mnire's. Please arrive a few minutes early, to complete new patient paperwork. ) Mehul Ruiz MD [Primary Care Provider] - 1 Week (Office to call with appointment time.) Abelino Kunz MD [STAFF PHYSICIAN] - 10/26/19 1:00 pm (Thursday) Patient Instructions/Handouts: *Surgery [facility] - After Heart Catheterization - Wire Bender Hand Instructions, Heart Healthy Diet (DC), Leukocytosis (GEN) Activity/Diet/Wound Care/Special Instructions: CARDIAC CATH 1. Support your puncture site by applying firm, steady pressure whenever you cough, laugh, sneeze or bear down to have a bowel movement (2-day restriction). 2. Watch for any excessive bruising, active bleeding, a firm knot forming under your skin, extreme tenderness and signs of infection (redness, swelling, fever). 3. Shower daily, do not soak puncture in a tub bath, jacuzzi, pool, tabor etc. for 1 week. This is to prevent risk of infection. 4. Drink plenty of fluids the day of and day after your procedure to flush contrast dye out of your kidneys. 5. Take all medications as directed. Never stop any new medication without your physicians OK. 6. No driving for 2 days after procedure. 7. 10- pound weight lifting restriction for 1 week. 8. Low sodium/low fat diet. 9. Activity limited until follow up appointment with your photographic process worker. In case of any problems, please call [facility] [place] @ [phone]. Discharge Disposition: HOME SELF-CARE
[2019-10-18 11:43] VITALS: BP 137/70; PULSE 69; TEMP 97.2
--- NOTE | 2019-10-18 12:24 | P.PN ---
Subjective Progress Note Date: 10/18/19 This is an 84-year-old female with history of hypertension, hyperlipidemia, osteoarthritis, spinal stenosis, admitted to the hospital with chest discomfort, she was taken to the cardiac catheterization lab where she underwent angioplasty and stenting of the LAD. Patient was seen and examined this morning, denied any chest pain, breathing is stable. EKG from this morning showed a normal sinus rhythm with no changes from post-PCI. Blood pressure 137/70 with a heart rate in the 60s to 80s, 97% on room air. White blood cell count 11.1, hemoglobin 12.3, platelet count 437. Sodium 138, potassium 4.5, BUN 16 and creatinine 0.8. Objective - Vital Signs Vital signs: Vital Signs Temp 97.2 F L 10/18/19 11:42 Pulse 69 10/18/19 11:42 Resp 12 10/18/19 11:42 BP 137/70 10/18/19 11:42 Pulse Ox 97 10/18/19 11:42 Intake & Output 10/17/19 10/18/19 10/18/19 18:59 06:59 18:59 Intake Total 980 210 180 Output Total 1100 850 Balance -120 -640 180 Weight 80.6 kg 80.6 kg Intake: IV 860 Sodium Chloride 0.9% 1, 250 000 ml @ 75 mls/hr IV . [id number] [facility] Rx#:[id number] Oral 120 210 180 Output: Urine 1100 850 Other: Voiding Method Indwelling Catheter Toilet # Voids 1 1 - Exam PHYSICAL EXAMINATION: GENERAL: 84-year-old female in no acute distress at the time of my examination HEENT: Head is atraumatic, normocephalic. Pupils equal, round. Sclera anicteric. Conjunctiva are clear. Mucous membranes of the mouth are moist. Neck is supple. There is no elevated jugular venous pressure. No carotid bruit is heard. HEART EXAMINATION: Heart S1, S2 normal. No murmur or gallop heard. CHEST EXAMINATION: Lungs are clear to auscultation and precussion. No chest wall tenderness is noted on palpation or with deep breathing. ABDOMEN: Soft, nontender. Bowel sounds are heard. No organomegaly noted. EXTREMITIES: 2+ peripheral pulses with no evidence of peripheral edema and no calf tenderness noted. Right groin soft, no evidence of any hematoma. NEUROLOGIC patient is awake, alert and oriented 3. . - Labs CBC & Chem 7: 10/18/19 05:21 10/18/19 05:21 Labs: Abnormal Lab Results - Last 24 Hours (Table) 10/18/19 Range/Units 05:21 WBC 11.1 H (3.8-10.6) k/uL MCHC 30.9 L (31.0-37.0) g/dL Neutrophils # 7.8 H (1.3-7.7) k/uL Microbiology - Last 24 Hours (Table) 10/14/19 16:44 Blood Culture - Preliminary Blood No Growth after 72 hours Assessment and Plan Plan: Assessment and plan #1 chest pain, status post angioplasty and stenting of the LAD #2 hypertension #3 hyperlipidemia #4 osteomyelitis Plan From cardiology's perspective, patient may be able to be discharged home today. Patient will be discharged home on aspirin 81 mg daily, Tenormin 50 mg daily, Lipitor 80 mg daily, losartan 100 mg daily, sublingual nitroglycerin as needed for chest pain, Brilinta 90 mg by mouth twice a day Will be taken for one month, after that patient will receive a loading dose of Plavix and start Plavix 75 mg daily. The Brilinta was too costly for the patient. Therefore we will provide the [place] and then switch her over to Plavix as explained to the patient in detail, she was provided prescriptions for both of these medications. DNP note has been reviewed, I agree with a documented findings and plan of care. Patient was seen and examined.
[2019-10-18] MEDS ORDERED: ATORVASTATIN 40 MG TAB PO SCH (21:00)
[2019-10-18] MEDS ORDERED: ATORVASTATIN 80 MG TAB PO SCH (21:00)
== END 2019-10-18 12:46 | disposition home or self-care (01) | DRG 247 ==
LOC: EC 12:29 → 1SOBS 16:22 → OBSVTOIN 10-16 09:46 → 3SCARD 10-17 15:18
PROVIDERS: ADMIT Internal Medicine; ATTEND Internal Medicine
PROC: 4A033BC Measurement of Arterial Pressure, Coronary, Percutaneous Approach (ICD-10-PCS; 2019-10-17)
PROC: 027035Z Dilation of Coronary Artery, One Artery with Two Drug-eluting Intraluminal Devices, Percutaneous Approach (ICD-10-PCS; principal; 2019-10-17 08:55)
PROC: B2111ZZ Fluoroscopy of Multiple Coronary Arteries using Low Osmolar Contrast (ICD-10-PCS; 2019-10-17 11:39)
PROC: 4A023N7 Measurement of Cardiac Sampling and Pressure, Left Heart, Percutaneous Approach (ICD-10-PCS; 2019-10-17 11:39)
DX: I25.110 Atherosclerotic heart disease of native coronary artery with unstable angina pectoris (principal); D72.829 Elevated white blood cell count, unspecified; T38.0X5A Adverse effect of glucocorticoids and synthetic analogues, initial encounter; E78.5 Hyperlipidemia, unspecified; I10 Essential (primary) hypertension; K20.9 Esophagitis, unspecified; K29.70 Gastritis, unspecified, without bleeding; K44.9 Diaphragmatic hernia without obstruction or gangrene; F51.04 Psychophysiologic insomnia; K80.20 Calculus of gallbladder without cholecystitis without obstruction; M48.00 Spinal stenosis, site unspecified; G89.29 Other chronic pain; M54.9 Dorsalgia, unspecified; F41.9 Anxiety disorder, unspecified; M19.90 Unspecified osteoarthritis, unspecified site; Z79.82 Long term (current) use of aspirin; Z79.1 Long term (current) use of non-steroidal anti-inflammatories (NSAID); Z79.899 Other long term (current) drug therapy; Z90.49 Acquired absence of other specified parts of digestive tract; Z90.710 Acquired absence of both cervix and uterus; Z96.653 Presence of artificial knee joint, bilateral; Z98.890 Other specified postprocedural states; Z98.42 Cataract extraction status, left eye; Z98.41 Cataract extraction status, right eye; Z96.1 Presence of intraocular lens; Z91.048 Other nonmedicinal substance allergy status; Z82.49 Family history of ischemic heart disease and other diseases of the circulatory system; Z80.0 Family history of malignant neoplasm of digestive organs
CPT/HCPCS: 36415; 71046; 71275; 76705; 80048; 80053; 80061; 81003; 82150; 83690; 83735; 83880; 84145; 84484; 85025; 85027; 85347; 85379; 85610; 85730; 87040; 93005; 93306; 93458; 93571; 96360; 96361; 99285; C1874

== ENCOUNTER → 2020-07-11 | Outpatient (CLI) | payer MEDICARE, BC ==
--- NOTE | 2020-07-11 15:48 | CT ---
EXAMINATION TYPE: CT chest w con DATE OF EXAM: 07/11/2020 COMPARISON: Chest CT October 14, 2019. HISTORY: lung mass, prior abnormal CT. CT DLP: 397.20 mGycm. Automated Exposure Control for Dose Reduction was Utilized. TECHNIQUE: CT scan of the thorax is performed following with IV Contrast, patient injected with 100 mL of Isovue 300. FINDINGS: LUNGS: Stable 2 to 3 mm subpleural nodule right mid to lower lung axial image 34. No new greater than 4 mm nodules or masses. There is no pleural effusion or pneumothorax seen bilaterally. The tracheob ronchial tree is patent. MEDIASTINUM: There are no new greater than 1 cm hilar or mediastinal lymph nodes. No pericardial ef fusion is seen. Stable cardiomegaly. Suspect coronary stent in the LAD with more proximal calcificat ion similar to prior. Stable small size hiatal hernia OTHER: Multilevel moderate to severe spurring in the spine. Posterior spurring effaces anterior theca l sac at several levels. Dependent small stones and/or gallbladder sludge in the gallbladder. IMPRESSION: No new suspicious or enlarging nodules.
== END | disposition home or self-care (01) ==
LOC: RADCTMAIN 13:28
PROVIDERS: ATTEND Internal Medicine Geriatric Medicine
DX: R91.8 Other nonspecific abnormal finding of lung field (principal)
CPT/HCPCS: 82565; 84520; 71260; 36415; Q9967

== ENCOUNTER 2022-07-05 16:50 | Emergency (ER) | payer MEDICARE, BC ==
[2022-07-05 16:57] VITALS: RESP 18; TEMP 97.6
[2022-07-05] MEDS ORDERED: MORPHINE SULFATE 2 MG/ML SYRINGE IVP STA (17:21)
--- NOTE | 2022-07-05 17:25 | ED ---
General Adult HPI - General Chief complaint: Back Pain/Injury Stated complaint: back pain Time Seen by Provider: 07/05/22 16:52 Source: patient, EMS, RN notes reviewed Mode of arrival: EMS Limitations: no limitations - History of Present Illness Initial comments: Patient is a pleasant 87-year-old female presenting to the emergency department with concern of low back pain. Patient does have history of chronic lower back pain with similar symptoms and did have surgery around 4 years ago. Symptoms are somewhat worse since yesterday afternoon. Patient is unclear if she did something or not. No hematuria or dysuria. No abdominal pain. No leg weakness or loss of sensation. No tendons retention of bowel or bladder. - Related Data Home Medications Medication Instructions Recorded Confirmed Aspirin [Adult Low Dose Aspirin EC] 81 mg PO DAILY 02/02/18 10/14/19 Losartan Potassium [Cozaar] 100 mg PO DAILY 02/02/18 10/14/19 amLODIPine [Norvasc] 5 mg PO HS 02/02/18 10/14/19 atenoloL [Tenormin] 50 mg PO HS 02/02/18 10/14/19 Acetaminophen [Tylenol] 650 mg PO Q8H PRN 10/14/19 10/14/19 Baclofen 5 mg PO HS PRN 10/14/19 10/14/19 Cbd Oil 1 cap PO HS 10/14/19 10/14/19 Gabapentin [Neurontin] 100 mg PO BID 10/14/19 10/14/19 Temazepam [Restoril] 15 mg PO HS PRN 10/14/19 10/14/19 traMADol HCL [Ultram] 50 mg PO Q8H PRN 10/14/19 10/14/19 Previous Rx's Medication Instructions Recorded ALPRAZolam [Xanax] 0.25 mg PO BID PRN #20 tab 02/08/18 Atorvastatin [Lipitor] 80 mg PO HS #30 tab 10/18/19 Clopidogrel Bisulfate [Plavix] 75 mg PO DAILY #30 tab 10/18/19 Clopidogrel Bisulfate [Plavix] 300 mg PO ONETIME #4 tablet 10/18/19 Meclizine [Antivert] 25 mg PO TID PRN #90 tab 10/18/19 Nitroglycerin Sl Tabs [Nitrostat] 0.4 mg SUBLINGUAL Q5M PRN #25 tab 10/18/19 Ticagrelor [Brilinta] 90 mg PO BID #60 tab 10/18/19 Cyclobenzaprine [Flexeril] 10 mg PO TID PRN #12 tablet 07/05/22 Allergies Allergy/AdvReac Type Severity Reaction Status Date / Time perfume AdvReac Dyspnea Verified 07/05/22 16:57 Review of Systems ROS Statement: Those systems with pertinent positive or pertinent negative responses have been documented in the HPI. ROS Other: All systems not noted in ROS Statement are negative. Constitutional: Denies: fever Eyes: Denies: eye pain ENT: Denies: ear pain Respiratory: Denies: cough Cardiovascular: Denies: chest pain Endocrine: Denies: fatigue Gastrointestinal: Denies: abdominal pain Genitourinary: Denies: dysuria Musculoskeletal: Reports: as per HPI, back pain Skin: Denies: rash Neurological: Denies: weakness Past Medical History Past Medical History: Hyperlipidemia, Hypertension, Osteoarthritis (OA) Additional Past Medical History / Comment(s): spinal stenosis History of Any Multi-Drug Resistant Organisms: None Reported Past Surgical History: Appendectomy, Back Surgery, Hysterectomy, Joint Replacement Additional Past Surgical History / Comment(s): rectocele,cystocele, [place] knee replacement, [place] cataract surgery, Lumbar laminectomy, colonoscopy was less than 5 years ago with no polyps. Additional Past Anesthesia/Blood Transfusion Reaction / Comment(s): "takes a little while to come out of anesthesia" Past Psychological History: Anxiety Smoking Status: Never smoker Past Alcohol Use History: None Reported Past Drug Use History: None Reported - Past Family History Mother Additional Family Medical History / Comment(s): Other at age 56 from a heart aneurysm Father Family Medical History: Cancer Additional Family Medical History / Comment(s): Father at age 63 from liver cancer. Brother(s) Family Medical History: Coronary Artery Disease (CAD) Additional Family Medical History / Comment(s): The patient has a brother that at age 37 from coronary artery disease or cardiac problem. She has 1 brother that at 3 years of age. Sister(s) Family Medical History: Coronary Artery Disease (CAD) Additional Family Medical History / Comment(s): Patient has one sister that is with history of coronary artery disease and CABG. One sister is alive at age 95 with history of coronary artery disease and CABG. Son(s) Additional Family Medical History / Comment(s): Patient has 2 sons and 1 daughter with history of hypertension. General Exam Limitations: no limitations General appearance: alert, in no apparent distress Head exam: Present: normocephalic Eye exam: Present: normal appearance Neck exam: Present: normal inspection Respiratory exam: Present: normal lung sounds bilaterally Cardiovascular Exam: Present: regular rate, normal rhythm Expanded Peripheral pulses: 2+: Posterior Tibialis (R), Posterior Tibialis (L), Dorsalis Pedis (R), Dorsalis Pedis (L) GI/Abdominal exam: Present: soft. Absent: tenderness, pulsatile mass Extremities exam: Present: normal inspection, full ROM, other (Positive straight leg raise on the left) Back exam: Present: tenderness (Mild left lower lumbar) Neurological exam: Absent: motor sensory deficit Expanded Sensory exam: Lower Extremity Light Touch: Normal Motor strength exam: RLE: 5, LLE: 5 Psychiatric exam: Present: normal affect, normal mood Skin exam: Present: normal color Course Vital Signs 07/05/22 07/05/22 16:51 17:46 Temperature 97.6 F Pulse Rate 58 L 62 Respiratory 18 18 Rate Blood Pressure 165/88 172/85 O2 Sat by Pulse 97 97 Oximetry Medical Decision Making - Medical Decision Making Patient reevaluated and feeling much better. Patient and family updated. - Radiology Data Radiology results: image reviewed (Lumbar x-ray does not reveal acute abnormality. Postsurgical changes) Disposition Clinical Impression: Low back pain Disposition: HOME SELF-CARE Condition: Stable Instructions (If sedation given, give patient instructions): Acute Low Back Pain (ED) Additional Instructions: Prescription sent to pharmacy. Please do follow-up with primary care physician in the next day or 2 for recheck. Also with her back doctor. [id number] lidocaine patch to affected area as needed. Prescriptions: Cyclobenzaprine [Flexeril] 10 mg PO TID PRN #12 tablet PRN Reason: Pain Is patient prescribed a controlled substance at d/c from ED?: No Referrals: Mehul Ruiz MD [Primary Care Provider] - 1-2 days Time of Disposition: 19:04
[2022-07-05] MEDS ORDERED: LIDOCAINE 5% PATCH TOPICAL SCH (17:30)
--- NOTE | 2022-07-05 18:00 | XR ---
EXAMINATION TYPE: XR lumbar spine 2 or 3V DATE OF EXAM: 07/05/2022 COMPARISON: 07/28/2017 HISTORY: Pain TECHNIQUE: 3 views FINDINGS: There is posterior fusion surgery from L4 to S1. The lumbar vertebrae have normal alignment . There is narrowing disc spaces throughout the lumbar spine. No compression fracture sacroiliac join ts are intact IMPRESSION: Previous surgery. Multilevel degenerative disc changes. No fracture. No adverse change co mpared to old exam
[2022-07-05] MEDS ORDERED: ACET/COD 300 MG/30 MG STARTER PACK 6 TAB BTL PO STA (19:03)
[2022-07-05 19:22] VITALS: BP 129/84; PULSE 80
== END 2022-07-05 19:23 | disposition home or self-care (01) ==
LOC: EC 16:50
DX: M54.50 Low back pain, unspecified (principal); I10 Essential (primary) hypertension; E78.5 Hyperlipidemia, unspecified; M19.90 Unspecified osteoarthritis, unspecified site; F41.9 Anxiety disorder, unspecified; Z79.899 Other long term (current) drug therapy; Z79.82 Long term (current) use of aspirin; Z91.048 Other nonmedicinal substance allergy status
CPT/HCPCS: 72100; 99283; 96374; J2270

== ENCOUNTER 2022-07-06 01:31 | Observation (INO) | payer MEDICARE, BC ==
[2022-07-06] MEDS ORDERED: TOPICAL SKIN ADHESIVE 1 EACH AMP TOPICAL ONE (02:22)
[2022-07-06] MEDS ORDERED: SODIUM CHLORIDE 0.9% 1,000 ML IV STA ×2 (02:45)
--- NOTE | 2022-07-06 02:45 | ED ---
Fall HPI - General Chief Complaint: Fall Stated Complaint: Dizziness, finger injury Time Seen by Provider: 07/06/22 01:34 Source: patient, family, EMS, RN notes reviewed, old records reviewed Mode of arrival: EMS Limitations: no limitations - History of Present Illness Initial Comments: This is a 87-year-old female to the emergency department for evaluation patient Dese for evaluation regards to fall secondary to dizziness. Patient had a significant fall after feeling lightheaded and dizzy after taking pain medications after being discharged from the ER yesterday with back pain. 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 Fall Witnessed: yes, by family Place Fall Occurred: home Loss of Consciousness: none Prolonged Down Time?: no Symptoms Prior to Fall: none Location - Extremities: Right: Hand Severity: moderate Severity scale (1-10): 2 Context: tripped/slipped, recent illness Associated Symptoms: denies - Related Data Home Medications Medication Instructions Recorded Confirmed Aspirin [Adult Low Dose Aspirin EC] 81 mg PO DAILY 02/02/18 10/14/19 Losartan Potassium [Cozaar] 100 mg PO DAILY 02/02/18 10/14/19 amLODIPine [Norvasc] 5 mg PO HS 02/02/18 10/14/19 atenoloL [Tenormin] 50 mg PO HS 02/02/18 10/14/19 Acetaminophen [Tylenol] 650 mg PO Q8H PRN 10/14/19 10/14/19 Baclofen 5 mg PO HS PRN 10/14/19 10/14/19 Cbd Oil 1 cap PO HS 10/14/19 10/14/19 Gabapentin [Neurontin] 100 mg PO BID 10/14/19 10/14/19 Temazepam [Restoril] 15 mg PO HS PRN 10/14/19 10/14/19 traMADol HCL [Ultram] 50 mg PO Q8H PRN 10/14/19 10/14/19 Previous Rx's Medication Instructions Recorded ALPRAZolam [Xanax] 0.25 mg PO BID PRN #20 tab 02/08/18 Atorvastatin [Lipitor] 80 mg PO HS #30 tab 10/18/19 Clopidogrel Bisulfate [Plavix] 75 mg PO DAILY #30 tab 10/18/19 Clopidogrel Bisulfate [Plavix] 300 mg PO ONETIME #4 tablet 10/18/19 Meclizine [Antivert] 25 mg PO TID PRN #90 tab 10/18/19 Nitroglycerin Sl Tabs [Nitrostat] 0.4 mg SUBLINGUAL Q5M PRN #25 tab 10/18/19 Ticagrelor [Brilinta] 90 mg PO BID #60 tab 10/18/19 Cyclobenzaprine [Flexeril] 10 mg PO TID PRN #12 tablet 07/05/22 Allergies Allergy/AdvReac Type Severity Reaction Status Date / Time perfume AdvReac Dyspnea Verified 07/05/22 16:57 Review of Systems ROS Statement: Those systems with pertinent positive or pertinent negative responses have been documented in the HPI. ROS Other: All systems not noted in ROS Statement are negative. Past Medical History Past Medical History: Hyperlipidemia, Hypertension, Osteoarthritis (OA) Additional Past Medical History / Comment(s): spinal stenosis History of Any Multi-Drug Resistant Organisms: None Reported Past Surgical History: Appendectomy, Back Surgery, Hysterectomy, Joint Replacement Additional Past Surgical History / Comment(s): rectocele,cystocele, [place] knee replacement, [place] cataract surgery, Lumbar laminectomy, colonoscopy was less than 5 years ago with no polyps. Additional Past Anesthesia/Blood Transfusion Reaction / Comment(s): "takes a little while to come out of anesthesia" Past Psychological History: Anxiety Smoking Status: Never smoker Past Alcohol Use History: None Reported Past Drug Use History: None Reported - Past Family History Mother Additional Family Medical History / Comment(s): Other at age 56 from a heart aneurysm Father Family Medical History: Cancer Additional Family Medical History / Comment(s): Father at age 63 from liver cancer. Brother(s) Family Medical History: Coronary Artery Disease (CAD) Additional Family Medical History / Comment(s): The patient has a brother that at age 37 from coronary artery disease or cardiac problem. She has 1 brother that at 3 years of age. Sister(s) Family Medical History: Coronary Artery Disease (CAD) Additional Family Medical History / Comment(s): Patient has one sister that is with history of coronary artery disease and CABG. One sister is alive at age 95 with history of coronary artery disease and CABG. Son(s) Additional Family Medical History / Comment(s): Patient has 2 sons and 1 daughter with history of hypertension. General Exam Limitations: no limitations General appearance: alert, in no apparent distress Head exam: Present: atraumatic, normocephalic, normal inspection Eye exam: Present: normal appearance, PERRL, EOMI. Absent: scleral icterus, conjunctival injection, periorbital swelling ENT exam: Present: normal exam, mucous membranes moist Neck exam: Present: normal inspection. Absent: tenderness, meningismus, lymphadenopathy Respiratory exam: Present: normal lung sounds bilaterally. Absent: respiratory distress, wheezes, rales, rhonchi, stridor Cardiovascular Exam: Present: regular rate, normal rhythm, normal heart sounds. Absent: systolic murmur, diastolic murmur, rubs, gallop, clicks GI/Abdominal exam: Present: soft, normal bowel sounds. Absent: distended, tenderness, guarding, rebound, rigid Extremities exam: Present: normal inspection, full ROM, normal capillary refill, other (Left middle finger does have skin tear avulsion which is dressed here in the ER). Absent: tenderness, pedal edema, joint swelling, calf tenderness Back exam: Present: normal inspection Neurological exam: Present: alert, oriented X3, CN II-XII intact Psychiatric exam: Present: normal affect, normal mood Skin exam: Present: warm, dry, intact, normal color. Absent: rash Course Vital Signs 07/06/22 01:33 Temperature 98.0 F Pulse Rate 52 L Respiratory 16 Rate Blood Pressure 174/99 O2 Sat by Pulse 97 Oximetry - Reevaluation(s) Reevaluation #1: 07/06/22 03:15 Medical record is reviewed Reevaluation #2: 07/06/22 03:15 Wound is dressed here in the ER Reevaluation #3: 07/06/22 03:15 Patient still feels lightheaded, Reevaluation #4: 07/06/22 03:15 Patient informed results and questions answered - Consultations Consultation #1: Spoke with admitting physicians O agree to admit the patient Medical Decision Making - Medical Decision Making 87 female DF for weakness earlier today given pain meds became lightheaded dizzy and fell. Patient did sustain left middle finger laceration which is repaired with Steri-Strips mainly skin tear. Patient also is feeling still lightheaded dizzy and weak she is concerned she may fall again socially placed in observation for hydration and back pain control - Lab Data Result diagrams: 07/06/22 03:18 07/06/22 03:18 - EKG Data -: EKG Interpreted by Me (EKG sinus bradycardia 55 VA 209 QRS 90 QTC 408) Disposition Clinical Impression: Fall, Low back pain, Fingertip avulsion Disposition: ADMITTED IP TO THIS [facility] Condition: Fair Is patient prescribed a controlled substance at d/c from ED?: No Time of Disposition: 03:00
[2022-07-06 03:46] LABS: Basophils # (A) 0.1 k/uL (0-0.2); Basophils % (A) 1 %; Eosinophils # (A) 0.1 k/uL (0-0.7); Eosinophils % (A) 1 %; HCT 43.6 % (34.0-46.0); HGB 14.3 gm/dL (11.4-16.0); Lymphocytes # (A) 1.8 k/uL (1.0-4.8); Lymphocytes % (A) 15 %; MCH 32.2 pg (25.0-35.0); MCHC 32.8 g/dL (31.0-37.0); MCV 97.9 fL (80.0-100.0); Mean Platelet Volume 7.7; Monocytes # (A) 0.8 k/uL (0-1.0); Monocytes % (A) 7 %; Neutrophils % (A) 75 %; Platelet Count 240 k/uL (150-450); RBC 4.45 m/uL (3.80-5.40); RDW 12.7 % (11.5-15.5); WBC 12.1 k/uL (3.8-10.6)
[2022-07-06 04:01] LABS: Albumin 4.2 g/dL (3.5-5.0); Calcium 9.6 mg/dL (8.4-10.2); Phosphorus 4.3 mg/dL (2.5-4.5); Potassium 4.5 mmol/L (3.5-5.1); Total Bilirubin 0.7 mg/dL (0.2-1.3); Total Protein 6.8 g/dL (6.3-8.2)
[2022-07-06 04:28] LABS: Appearance,Urine Clear (Clear); Bacteria,Urine Rare /hpf; Bilirubin,Urine Negative (Negative); Blood,Urine Negative (Negative); Color,Urine Light Yellow; Glucose,Urine (UA) Negative (Negative); Ketones,Urine Negative (Negative); Leukocyte Esterase,Urine Small (Negative); Nitrite,Urine Negative (Negative); Protein,Urine Negative (Negative); RBC,Urine 1 /hpf (0-5); Specific Gravity,Urine 1.015 (1.001-1.035); Squamous Epithelial Cell,Urine 3 /hpf (0-4); Urobilinogen,Urine <2.0 mg/dL (<2.0); WBC,Urine 5 /hpf (0-5)
--- NOTE | 2022-07-06 04:43 | CT ---
EXAMINATION TYPE: CT abdomen pelvis wo con DATE OF EXAM: 07/06/2022 COMPARISON: None HISTORY: LOW BACK PAIN FROM FALL CT DLP: 704.1 mGycm Automated exposure control for dose reduction was used. Images obtained from the diaphragm to the floor the pelvis with no contrast. Lung bases are clear of consolidation. No pleural effusion. Heart size is borderline enlarged.. There is small hiatal hernia. No pericardial effusion. Liver spleen appear intact. Stomach is intact. No pancreatic mass. The bile ducts are not dilated. Th ere is increased density in the dependent gallbladder consistent with multiple tiny gallstones. The b ile ducts are not dilated. There is no adrenal mass. Kidneys of normal size and contour. No hydronephrosis. Ureters are not dila stalin. No retroperitoneal adenopathy. Bladder distends smoothly. No inguinal hernia. No free fluid in t he pelvis. No pelvic mass. There are sigmoid diverticula. No diverticulitis. The lumbar vertebrae have normal alignment. There is posterior fusion surgery from L4 to S1. No lumba r compression fracture. The bony pelvis is intact. There is hypertrophic spurring of the acetabula. T here is spurring of the femoral heads. IMPRESSION: There is sigmoid diverticulosis without diverticulitis. Cholelithiasis. Small hiatal hernia. No acute abnormality of the abdomen and pelvis.
[2022-07-06] MEDS: ACETAMINOPHEN TAB 325 MG TAB PO PRN (09:26)
[2022-07-06] MEDS ORDERED: ACETAMINOPHEN TAB 325 MG TAB PO PRN (19:36)
[2022-07-06] MEDS ORDERED: traMADol 50 MG TAB PO PRN (19:36)
[2022-07-06] MEDS ORDERED: NITROGLYCERIN SL TABS 0.4 MG TAB SUBLINGUAL PRN (19:36)
[2022-07-06] MEDS ORDERED: MECLIZINE 25 MG TAB PO PRN (19:36)
--- NOTE | 2022-07-06 19:42 | P.HPIM ---
History of Present Illness H&P Date: 07/06/22 Chief Complaint: Back pain 87-year-old female to the emergency department for evaluation patient Dese for evaluation regards to fall secondary to dizziness. Patient had a significant fall after feeling lightheaded and dizzy after taking pain medications after being discharged from the ER yesterday with back pain. Patient continues to give weakness lightheadedness and dizziness here in the emergency department Patient was evaluated in the ER yesterday and had a CT of the lumbar spine done which was unremarkable for any acute abnormality Patient continues to have significant difficulty in ambulation and ADLs; will be admitted for pain management and PT/OT evaluation Review of Systems REVIEW OF SYSTEMS: CONSTITUTIONAL: No fever, no malaise, no fatigue. HEENT: No recent visual problems or hearing problems. Denied any sore throat. CARDIOVASCULAR: No chest pain, orthopnea, PND, no palpitations, no syncope. PULMONARY: No shortness of breath, no cough, no hemoptysis. GASTROINTESTINAL: No diarrhea, no nausea, no vomiting, no abdominal pain. NEUROLOGICAL: No headaches, no weakness, no numbness. HEMATOLOGICAL: Denies any bleeding or petechiae. GENITOURINARY: Denies any burning micturition, frequency, or urgency. MUSCULOSKELETAL/RHEUMATOLOGICAL: Denies any joint pain, swelling, or any muscle pain. ENDOCRINE: Denies any polyuria or polydipsia. The rest of the 14-point review of systems is negative. Past Medical History Past Medical History: Hyperlipidemia, Hypertension, Osteoarthritis (OA) Additional Past Medical History / Comment(s): spinal stenosis History of Any Multi-Drug Resistant Organisms: None Reported Past Surgical History: Appendectomy, Back Surgery, Hysterectomy, Joint Replacement Additional Past Surgical History / Comment(s): rectocele,cystocele, [place] knee replacement, [place] cataract surgery, Lumbar laminectomy, colonoscopy was less than 5 years ago with no polyps. Additional Past Anesthesia/Blood Transfusion Reaction / Comment(s): "takes a little while to come out of anesthesia" Past Psychological History: Anxiety Smoking Status: Never smoker Past Alcohol Use History: None Reported Additional Past Alcohol Use History / Comment(s): Patient is a lifelong nonsmoker. No alcohol use or abuse. She lives in senior housing. Past Drug Use History: None Reported - Past Family History Mother Additional Family Medical History / Comment(s): Other at age 56 from a heart aneurysm Father Family Medical History: Cancer Additional Family Medical History / Comment(s): Father at age 63 from liver cancer. Brother(s) Family Medical History: Coronary Artery Disease (CAD) Additional Family Medical History / Comment(s): The patient has a brother that at age 37 from coronary artery disease or cardiac problem. She has 1 brother that at 3 years of age. Sister(s) Family Medical History: Coronary Artery Disease (CAD) Additional Family Medical History / Comment(s): Patient has one sister that is with history of coronary artery disease and CABG. One sister is alive at age 95 with history of coronary artery disease and CABG. Son(s) Additional Family Medical History / Comment(s): Patient has 2 sons and 1 daughter with history of hypertension. Medications and Allergies Home Medications Medication Instructions Recorded Confirmed Type Aspirin [Adult Low Dose Aspirin EC] 81 mg PO DAILY 02/02/18 07/06/22 History Losartan Potassium [Cozaar] 100 mg PO DAILY 02/02/18 07/06/22 History amLODIPine [Norvasc] 5 mg PO HS 02/02/18 07/06/22 History atenoloL [Tenormin] 50 mg PO HS 02/02/18 07/06/22 History Acetaminophen [Tylenol] 650 mg PO Q8H PRN 10/14/19 07/06/22 History Cbd Oil 1 dose PO BID 10/14/19 07/06/22 History Gabapentin [Neurontin] 100 mg PO BID 10/14/19 07/06/22 History Temazepam [Restoril] 15 mg PO HS PRN 10/14/19 07/06/22 History traMADol HCL [Ultram] 50 mg PO Q8H PRN 10/14/19 07/06/22 History Meclizine [Antivert] 25 mg PO TID PRN #90 tab 10/18/19 07/06/22 Rx Nitroglycerin Sl Tabs [Nitrostat] 0.4 mg SUBLINGUAL Q5M PRN #25 tab 10/18/19 07/06/22 Rx Latanoprost [Latanoprost 0.005%] 1 drop BOTH EYES BID 07/06/22 07/06/22 History Pantoprazole [Protonix] 40 mg PO DAILY 07/06/22 07/06/22 History Rosuvastatin [Crestor] 20 mg PO HS 07/06/22 07/06/22 History Timolol 0.5% Ophth Soln [Timoptic 1 drop BOTH EYES DAILY 07/06/22 07/06/22 History 0.5% Ophth Soln] Ubidecarenone [Coenzyme Q10] 200 mg PO DAILY 07/06/22 07/06/22 History Allergies Allergy/AdvReac Type Severity Reaction Status Date / Time perfume AdvReac Dyspnea Verified 07/06/22 12:16 Physical Exam Vitals: Vital Signs Temp Pulse Pulse Resp BP BP Pulse Ox 07/06/22 08:00 56 L 18 07/06/22 07:00 97.8 F 56 L 18 171/75 97 07/06/22 05:06 97.9 F 56 L 18 175/72 97 07/06/22 04:22 56 L 18 165/83 94 L 07/06/22 01:33 98.0 F 52 L 16 174/99 97 Intake and Output 07/05/22 07/06/22 07/06/22 22:59 06:59 14:59 Intake Total 120 Output Total 0 Balance 0 120 Intake: Oral 120 Output: Urine 0 Other: Voiding Method Toilet # Voids 1 Weight 81.193 kg PHYSICAL EXAMINATION: GENERAL: The patient is alert and oriented x3, not in any acute distress. Well developed, well nourished. HEENT: Pupils are round and equally reacting to light. EOMI. No scleral icterus. No conjunctival pallor. Normocephalic, atraumatic. No pharyngeal erythema. No thyromegaly. CARDIOVASCULAR: S1 and S2 present. No murmurs, rubs, or gallops. PULMONARY: Chest is clear to auscultation, no wheezing or crackles. ABDOMEN: Soft, nontender, nondistended, normoactive bowel sounds. No palpable organomegaly. MUSCULOSKELETAL: No joint swelling or deformity. EXTREMITIES: No cyanosis, clubbing, or pedal edema. NEUROLOGICAL: Gross neurological examination did not reveal any focal deficits. SKIN: No rashes. Results CBC & Chem 7: 07/06/22 03:18 07/06/22 03:18 Labs: Abnormal Lab Results - Last 24 Hours (Table) 07/06/22 07/06/22 07/06/22 Range/Units 03:18 03:18 03:44 WBC 12.1 H (3.8-10.6) k/uL Neutrophils # 9.0 H (1.3-7.7) k/uL BUN 18 H (7-17) mg/dL Glucose 105 H (74-99) mg/dL Ur Leukocyte Esterase Small H (Negative) Urine Bacteria Rare H (None) /hpf Thrombosis Risk Factor Assmnt - Choose All That Apply Each Factor Represents 1 point: Obesity (BMI >25) Each Risk Factor Represents 3 Points: Age 75 years or older Thrombosis Risk Factor Assessment Total Risk Factor Score: 4 Thrombosis Risk Factor Assessment Level: Moderate Risk Assessment and Plan Assessment: 1. Intractable back pain - Patient does have history of spinal stenosis and back surgery; CT of the lumbar spine is unremarkable - We will consult orthopedic surgery for possibility of a back brace for symptomatic relief; continue with current pain management - Continue with home dose of Neurontin 100 mg by mouth twice a day - PT/OT consulted for evaluation 2. Inability to ambulate; patient uses a walker at home; encouraged to ambulate to the bathroom; PT to evaluate patient 3. Hypertension; amlodipine 5 mg by mouth daily at bedtime; Tenormin 50 mg by mouth daily at bedtime 4. Hyperlipidemia; Crestor 20 mg by mouth daily at bedtime 5. Osteoarthritis; patient takes tramadol and Tylenol at home which have been reordered; Neurontin 100 mg by mouth twice a day 6. Insomnia/sleep disorder; Restoril 15 mg by mouth daily at bedtime DVT prophylaxis; SCDs CODE STATUS; full code
[2022-07-06] MEDS: TEMAZEPAM 15 MG CAP PO PRN (21:16)
[2022-07-06] MEDS: ATORVASTATIN 40 MG TAB PO SCH (21:16)
[2022-07-06] MEDS: atenoloL 50 MG TAB PO SCH (21:16)
[2022-07-06] MEDS: amLODIPine 5 MG TAB PO SCH (21:16)
[2022-07-06] MEDS: GABAPENTIN 100 MG CAP PO SCH (21:16)
[2022-07-06] MEDS: LATANOPROST 0.005% OPHTH DROPS 2.5 ML BTL BOTH EYES SCH (21:16)
[2022-07-07] MEDS: ACETAMINOPHEN TAB 325 MG TAB PO PRN ×2 (06:20→20:41)
[2022-07-07] MEDS: LOSARTAN 50 MG TAB PO SCH (08:23)
[2022-07-07] MEDS: LATANOPROST 0.005% OPHTH DROPS 2.5 ML BTL BOTH EYES SCH ×2 (08:23→20:42)
[2022-07-07] MEDS: ASPIRIN 81 MG PO SCH (08:23)
[2022-07-07] MEDS: TIMOLOL 0.5% OPHTH DROPS 5 ML BTL BOTH EYES SCH (08:23)
[2022-07-07] MEDS: PANTOPRAZOLE 40 MG TABLET PO SCH (08:23)
[2022-07-07] MEDS: GABAPENTIN 100 MG CAP PO SCH ×2 (08:23→20:42)
[2022-07-07] MEDS ORDERED: NON FORMULARY DRUG (Ubidecarenone [Coenzyme Q10] 200 MG Capsule) PO SCH (09:00)
--- NOTE | 2022-07-07 10:06 | P.CNOR ---
History of Present Illness - HPI Consult date: 07/07/22 Consult reason: low back pain History of present illness: Acute flareup of low back pain with history of lumbar fusion Patient is seen and examined at bedside. She is a very pleasant 87-year-old female was completed by her son. She is admitted to the hospital after she sustained a significant fall was unable get up off the floor. Apparently the patient had been having pain over the past several days. Her p ain is primarily at her back and radiate toward her buttocks bilaterally. She does not have any specific trauma or injury. She is having worsening pain and went to the emergency room on Thursday night to have it evaluated. She is given some medicine and some pain medicine and was sent home. She was feeling better but she was feeling very unsteady and unfortunately had a fall at home. When she fell at home she cut her finger significantly and was unable to get up off the floor. Thursday morning she presented back to the emergency room and was admitted. She has a history of lumbar issues with spinal stenosis and lower extremity radiculopathy and neurogenic claudication. She had undergone prior surgery or 4 years ago in 2018 with our service. She underwent decompression and fusion L4 5 L5-S1 and went on to have good results with good return to her regular function. However over the past several days she had been having worsening pain at her back without any specific incident or trauma. She was seeking treatment and was dizzy after some of medications and fell which brought her back to the hospital, and ultimately admitted. She says that her back is actually feeling somewhat better. She is not having numbness tingling in her feet or legs. She is feeling much more steady on her feet now that the necrotic medication is wearing off. She has been doing physical therapy this morning and feels much more steady on her feet. She is not having changes in bowel bladder function. She denies any new numbness tingling or lower extremity. She still has some back soreness but it is improving. She denies any chest pain or shortness breath Review of Systems As stated per HPI. Denies any changes in bowel bladder function. Denies any loss of control. Denies any chest pain shortness breath headaches or dizziness loss of consciousness. She denies any new weakness in her lower extremities. She says her back is feeling better and her legs are doing better as well. Past Medical History Past Medical History: Hyperlipidemia, Hypertension, Osteoarthritis (OA) Additional Past Medical History / Comment(s): spinal stenosis status post lumbar decompression and fusion in 2018 which had gone on to do well History of Any Multi-Drug Resistant Organisms: None Reported Past Surgical History: Appendectomy, Back Surgery, Hysterectomy, Joint Replacement Additional Past Surgical History / Comment(s): rectocele,cystocele, [place] knee replacement, [place] cataract surgery, Lumbar laminectomy, colonoscopy was less than 5 years ago with no polyps. Additional Past Anesthesia/Blood Transfusion Reaction / Comm: "takes a little while to come out of anesthesia" Past Psychological History: Anxiety Smoking Status: Never smoker Past Alcohol Use History: None Reported Additional Past Alcohol Use History / Comment(s): Patient is a lifelong nonsmoker. No alcohol use or abuse. She lives in senior housing. Past Drug Use History: None Reported - Past Family History Mother Additional Family Medical History / Comment(s): Other at age 56 from a heart aneurysm Father Family Medical History: Cancer Additional Family Medical History / Comment(s): Father at age 63 from liver cancer. Brother(s) Family Medical History: Coronary Artery Disease (CAD) Additional Family Medical History / Comment(s): The patient has a brother that at age 37 from coronary artery disease or cardiac problem. She has 1 brother that at 3 years of age. Sister(s) Family Medical History: Coronary Artery Disease (CAD) Additional Family Medical History / Comment(s): Patient has one sister that is with history of coronary artery disease and CABG. One sister is alive at age 95 with history of coronary artery disease and CABG. Son(s) Additional Family Medical History / Comment(s): Patient has 2 sons and 1 daughter with history of hypertension. Medications and Allergies Home Medications Medication Instructions Recorded Confirmed Type Aspirin [Adult Low Dose Aspirin EC] 81 mg PO DAILY 02/02/18 07/06/22 History Losartan Potassium [Cozaar] 100 mg PO DAILY 02/02/18 07/06/22 History amLODIPine [Norvasc] 5 mg PO HS 02/02/18 07/06/22 History atenoloL [Tenormin] 50 mg PO HS 02/02/18 07/06/22 History Acetaminophen [Tylenol] 650 mg PO Q8H PRN 10/14/19 07/06/22 History Cbd Oil 1 dose PO BID 10/14/19 07/06/22 History Gabapentin [Neurontin] 100 mg PO BID 10/14/19 07/06/22 History Temazepam [Restoril] 15 mg PO HS PRN 10/14/19 07/06/22 History traMADol HCL [Ultram] 50 mg PO Q8H PRN 10/14/19 07/06/22 History Meclizine [Antivert] 25 mg PO TID PRN #90 tab 10/18/19 07/06/22 Rx Nitroglycerin Sl Tabs [Nitrostat] 0.4 mg SUBLINGUAL Q5M PRN #25 tab 10/18/19 07/06/22 Rx Latanoprost [Latanoprost 0.005%] 1 drop BOTH EYES BID 07/06/22 07/06/22 History Pantoprazole [Protonix] 40 mg PO DAILY 07/06/22 07/06/22 History Rosuvastatin [Crestor] 20 mg PO HS 07/06/22 07/06/22 History Timolol 0.5% Ophth Soln [Timoptic 1 drop BOTH EYES DAILY 07/06/22 07/06/22 History 0.5% Ophth Soln] Ubidecarenone [Coenzyme Q10] 200 mg PO DAILY 07/06/22 07/06/22 History Allergies Allergy/AdvReac Type Severity Reaction Status Date / Time perfume AdvReac Dyspnea Verified 07/06/22 12:16 Physical Examination Osteopathic Statement: *. No significant issues noted on an osteopathic str uctural exam other than those noted in the History and Physical/Consult. - L Spine: dermatomal strength & reflexes bilateral Strength: hip flexion: 5/5 (Her back incisions are well-healed. There is no erythema there is no drainage. She is some mild tenderness in her paraspinals or lower back. There is no skin changes. Her lower extremities have 5 out of 5 strength at 4/plantar flexion and EHL flexion and extension bilaterally, negative Homans') Results - Labs Labs: H & H 07/06/22 Range/Units 03:18 Hgb 14.3 (11.4-16.0) gm/dL Hct 43.6 (34.0-46.0) % Result Diagrams: 07/06/22 03:18 07/06/22 03:18 - Diagnostic results Lumbar AP/lateral x-ray: report reviewed, image reviewed CT Scan - lumbar: report reviewed (There is some facet arthrosis diffusely thro ughout her lumbar spine. There is no evidence of any new fracture. There is some wedging around T11 which appears to be chronic. There is no acute instability.), image reviewed (Lumbar x-rays from a few days ago and then CT from yesterday her lumbar spine is reviewed shows a prior hardware at L4 5 and S1. His decompression at the area which appears to be stable. There is disc degeneration above they're particularly at L2-3 with some evidence of stenosis. There is facet a) Assessment and Plan Assessment: Acute flareup of lumbar back pain with myofascial strain, improving History of lumbar fusion L4 5 L5-S1 for her spinal stenosis and neurogenic claudication which appears to be stable and solid No new neurologic deficit Status post fall at home likely due to narcotic dizziness Right finger laceration appears stable Improving low back pain Plan: Acute flareup of lumbar back pain with myofascial strain, improving History of lumbar fusion L4 5 L5-S1 for her spinal stenosis and neurogenic claudication which appears to be stable and solid No new neurologic deficit Status post fall at home likely due to narcotic dizziness Right finger laceration appears stable Improving low back pain The patient has been making improvement in terms of her low back pain. She is controlling her pain adequately now with Tylenol. That is what she usually takes at home. She denies any new changes in her lower extremities and is not having bowel bladder function changes. Her imaging appears to be stable without evidence of new injury or instability. I think it is okay for the patient to increase her mobilization as tolerated. She may weight-bear as tolerated. I would not plan any specific bracing or further advanced imaging at this point. The patient has been making progress and I think it is okay for her to continue her activity and to be discharged home when she is stable from medicine standpoint. I think we can plan to see her back as outpatient for recheck evaluation in the next 2 weeks. She may need further rehabilitation and physical therapy and we discussed this with her and her son. They're agreeable with this. From a spine standpoint We'll plan to see them on an outpatient basis
[2022-07-07] MEDS: ATORVASTATIN 40 MG TAB PO SCH (20:42)
[2022-07-07] MEDS: TEMAZEPAM 15 MG CAP PO PRN (20:42)
[2022-07-07] MEDS: atenoloL 50 MG TAB PO SCH (20:42)
[2022-07-07] MEDS: amLODIPine 5 MG TAB PO SCH (20:42)
[2022-07-08 04:16] VITALS: PULSE 54; RESP 16
[2022-07-08 08:23] VITALS: BP 133/77; TEMP 98
[2022-07-08] MEDS: ASPIRIN 81 MG PO SCH (09:19)
[2022-07-08] MEDS: LOSARTAN 50 MG TAB PO SCH (09:19)
[2022-07-08] MEDS: GABAPENTIN 100 MG CAP PO SCH (09:19)
[2022-07-08] MEDS: PANTOPRAZOLE 40 MG TABLET PO SCH (09:20)
[2022-07-08] MEDS: LATANOPROST 0.005% OPHTH DROPS 2.5 ML BTL BOTH EYES SCH (09:20)
[2022-07-08] MEDS: TIMOLOL 0.5% OPHTH DROPS 5 ML BTL BOTH EYES SCH (09:20)
[2022-07-08] MEDS: ACETAMINOPHEN TAB 325 MG TAB PO PRN (09:28)
--- NOTE | 2022-07-08 09:34 | P.PN ---
Subjective Progress Note Date: 07/07/22 87-year-old female to the emergency department for evaluation patient Dese for evaluation regards to fall secondary to dizziness. Patient had a significant fall after feeling lightheaded and dizzy after taking pain medications after being discharged from the ER yesterday with back pain. Patient continues to give weakness lightheadedness and dizziness here in the emergency department Patient was evaluated in the ER yesterday and had a CT of the lumbar spine done which was unremarkable for any acute abnormality Patient continues to have significant difficulty in ambulation and ADLs; will be admitted for pain management and PT/OT evaluation 07/07/2022 Patient is seen and evaluated in follow-up no acute overnight issues. Patient awaiting to be seen by PT/OT therapy reports she has been up with her son walking. Patient denies having dizziness and lightheadedness. Patient also with her right middle finger laceration during her fall that was glued and and Steri- Stripped although all of the kerlex was stuck to the glue and difficult to assess the area. Patient soaking the area currently. Patient is afebrile denies chest pain or shortness of breath. Patient will be going back to [facility] where she lives when stable. Review of systems: Constitutional: No reports of fatigue, fever, or chills Cardiovascular: No reports of chest pain or palpitations Respiratory: No reports of shortness of breath or cough GI: No reports of nausea, vomiting, or diarrhea : No reports of dysuria or retention Neurovascular: No reports of weakness or numbness All medications have been reviewed Physical exam: GENERAL: The patient is alert and oriented x3, not in any acute distress. Well d eveloped, well nourished. HEENT: Pupils are round and equally reacting to light. EOMI. No scleral icterus. No conjunctival pallor. Normocephalic, atraumatic. No pharyngeal erythema. No thyromegaly. CARDIOVASCULAR: S1 and S2 present. No murmurs, rubs, or gallops. PULMONARY: Chest is clear to auscultation, no wheezing or crackles. ABDOMEN: Soft, nontender, nondistended, normoactive bowel sounds. No palpable organomegaly. MUSCULOSKELETAL: No joint swelling or deformity. EXTREMITIES: No cyanosis, clubbing, or pedal edema. NEUROLOGICAL: Gross neurological examination did not reveal any focal deficits. SKIN: No rashes. Right middle finger tip with laceration with Steri-Strips and glue noted active bleeding Assessment: 1. Intractable back pain history of spinal stenosis, evaluated by orthopedics with conservative management only 2. Inability to ambulate; patient uses a walker at home; encouraged to ambulate to the bathroom; PT to evaluate patient 3. Hypertension; amlodipine 5 mg by mouth daily at bedtime; Tenormin 50 mg by mouth daily at bedtime 4. Hyperlipidemia; Crestor 20 mg by mouth daily at bedtime 5. Osteoarthritis; patient takes tramadol and Tylenol at home which have been reordered; Neurontin 100 mg by mouth twice a day 6. Insomnia/sleep disorder; Restoril 15 mg by mouth daily at bedtime 7. DVT prophylaxis; SCDs 8. CODE STATUS; full code Plan: Recommend continue with ambulation in the halls frequently monitor for any further dizziness. Soaking the right middle finger to assess the laceration that was unable to be sutured in the ER and multiple Steri-Strips with Dermabond applied although all of the glue was stuck to the Curlex and unable to visualize the area. Patient having pain and recommend to continue with Tylenol. Will redress the area and also apply a splint for immobilization Recommend close observation overnight to monitor for any further dizziness with probable discharge in the a.m. The impression and plan of care has been dictated by Juhi Vee, Nurse Practitioner as directed. Dr. John MD I have performed a history and examination and MDM of this patient, discussed the same with the dictator, and agree with the dictator's assessment and plan as written ,documented as a scribe. Based on total visit time, I have performed more than 50% of the visit. Objective - Vital Signs Vital signs: Vital Signs Temp 97.9 F 07/07/22 07:45 Pulse 79 07/07/22 08:00 Resp 18 07/07/22 08:00 BP 151/80 07/07/22 07:45 Pulse Ox 94 L 07/07/22 07:45 FiO2 Intake & Output 07/06/22 07/07/22 07/07/22 18:59 06:59 18:59 Intake Total 620 200 Output Total 1 1 Balance 619 199 Intake: Oral 620 200 Output: Stool 1 1 Other: Voiding Method Toilet Toilet Toilet # Voids 4 2 - Labs CBC & Chem 7: 07/06/22 03:18 07/06/22 03:18
--- NOTE | 2022-07-09 15:17 | P.DS ---
Providers Date of admission: 07/06/22 02:50 Expected date of discharge: 07/08/22 Attending physician: Johnathon Bone Consults: 07/06/22 18:18 Consult Physician Routine Consulting Provider: Natalia Todd Consult Reason/Comments: back pain Do you want consulting provider notified?: Yes Primary care physician: Mehul [facility] Course: Final diagnosis 1. Intractable back pain with history of spinal stenosis, evaluated by orthopedics with conservative management only 2. Inability to ambulate due to increased dizziness, possibly secondary to morphine dose in ER 3. Hypertension 4. Hyperlipidemia 5. Osteoarthritis 6. Insomnia/sleep disorder 7. DVT prophylaxis 8. full code 9. Right middle finger laceration status post fall Discharge disposition Patient is being discharged in a stable condition with guarded prognosis to [facility] where she resides . Patient will follow-up with Dr. Ruiz in the outpatient setting upon discharge. Patient is to follow-up with orthopedics Dr. Todd as scheduled. Total time taken is greater than 35 minutes. Hospital course This is a 87-year-old female who was recently admitted increased back pain and also some dizziness with ambulation and has fallen. Patient also was evaluated by orthopedics recommending conservative management and outpatient follow-up. Patient during her fall of the right middle finger experienced a deep laceration that was Steri-Stripped and Dermabond in the ER as there was no viable tissue around the laceration to suture. Have reinforced the Steri-Strips and applied a nonadherent dressing is all of the Dermabond was attached to her Kerlex and skin that required soaking to remove. Also recommend to continue with a finger splint to avoid striking that finger. Patient continues with pain and is maintained on Tylenol along with Ultram. Patient will follow-up with Dr. Todd outpatient also recommend neurology consultation for further workup regarding this dizziness. Patient does take meclizine as needed although reports this is a different dizziness than her normal. Patient reports she did not strike her head during the fall and denies any loss of consciousness. Patient has been up and walking multiple times with her walker with only standby assist. Patient reports she is having family come stay with her for the next few days. Recommended follow-up with her primary care provider this week as well. Currently no reports of chest pain, shortness of breath, or palpitations. Patient is afebrile. No reports of nausea or vomiting and patient is tolerating diet. Patient will be discharged home today. Guarded prognosis. Physical exam: Gen: This is a 87-year-old female awake, alert and oriented 3, well-developed, well-nourished, obese HEENT: Head is atraumatic, normocephalic. Pupils equal, round. Sclerae is anicteric. NECK: Supple. No JVD. No lymphadenopathy. No thyromegaly. LUNGS: Clear to auscultation. No wheezes or rhonchi. No intercostal retractions. HEART: Regular rate and rhythm. No murmur. ABDOMEN: Soft. Bowel sounds are present. No masses. No tenderness. EXTREMITIES: No pedal edema. No calf tenderness. Right middle finger tip laceration noted with no active bleeding and sensitive on palpation with Steri- Strips noted NEUROLOGICAL: Patient is awake, alert and oriented x3. Cranial nerves 2 through 12 are grossly intact. Please refer to medication reconciliation sheet for a list of medications. The impression and plan of care has been dictated by Juhi Vee, Nurse Practitioner as directed. Dr. John MD I have performed a history and examination and MDM of this patient, discussed the same with the dictator, and agree with the dictator's assessment and plan as written ,documented as a scribe. Based on total visit time, I have performed more than 50% of the visit. Patient Condition at Discharge: Fair Plan - Discharge Summary New Discharge Prescriptions: Continue Aspirin [Adult Low Dose Aspirin EC] 81 mg PO DAILY amLODIPine [Norvasc] 5 mg PO HS Losartan Potassium [Cozaar] 100 mg PO DAILY atenoloL [Tenormin] 50 mg PO HS Temazepam [Restoril] 15 mg PO HS PRN PRN Reason: Insomnia Cbd Oil 1 dose PO BID traMADol HCL [Ultram] 50 mg PO Q8H PRN PRN Reason: Pain Gabapentin [Neurontin] 100 mg PO BID Nitroglycerin Sl Tabs [Nitrostat] 0.4 mg SUBLINGUAL Q5M PRN #25 tab PRN Reason: Chest Pain Meclizine [Antivert] 25 mg PO TID PRN #90 tab PRN Reason: Vertigo Timolol 0.5% Ophth Soln [Timoptic 0.5% Ophth Soln] 1 drop BOTH EYES DAILY Latanoprost [Latanoprost 0.005%] 1 drop BOTH EYES BID Rosuvastatin [Crestor] 20 mg PO HS Pantoprazole [Protonix] 40 mg PO DAILY Ubidecarenone [Coenzyme Q10] 200 mg PO DAILY Changed Acetaminophen [Tylenol] 650 mg PO Q6H PRN #0 PRN Reason: Pain Discharge Medication List Aspirin [Adult Low Dose Aspirin EC] 81 mg PO DAILY 02/02/18 [History] Losartan Potassium [Cozaar] 100 mg PO DAILY 02/02/18 [History] amLODIPine [Norvasc] 5 mg PO HS 02/02/18 [History] atenoloL [Tenormin] 50 mg PO HS 02/02/18 [History] Cbd Oil 1 dose PO BID 10/14/19 [History] Gabapentin [Neurontin] 100 mg PO BID 10/14/19 [History] Temazepam [Restoril] 15 mg PO HS PRN 10/14/19 [History] traMADol HCL [Ultram] 50 mg PO Q8H PRN 10/14/19 [History] Meclizine [Antivert] 25 mg PO TID PRN #90 tab 10/18/19 [Rx] Nitroglycerin Sl Tabs [Nitrostat] 0.4 mg SUBLINGUAL Q5M PRN #25 tab 10/18/19 [Rx] Latanoprost [Latanoprost 0.005%] 1 drop BOTH EYES BID 07/06/22 [History] Pantoprazole [Protonix] 40 mg PO DAILY 07/06/22 [History] Rosuvastatin [Crestor] 20 mg PO HS 07/06/22 [History] Timolol 0.5% Ophth Soln [Timoptic 0.5% Ophth Soln] 1 drop BOTH EYES DAILY 07/06/22 [History] Ubidecarenone [Coenzyme Q10] 200 mg PO DAILY 07/06/22 [History] Acetaminophen [Tylenol] 650 mg PO Q6H PRN #0 07/08/22 [Rx] Follow up Appointment(s)/Referral(s): Natalia Todd DO [Doctor of Osteopathic Medicine] - 07/21/22 10:30 am Mehul Ruiz MD [Primary Care Provider] - 1-2 days Walter Chance MD [Medical Doctor] - 1 Week Patient Instructions/Handouts: Skin Avulsion (ED) Activity/Diet/Wound Care/Special Instructions: Light activity as tolerated. May walk as tolerated. Avoid any repetitive bending twisting or lifting. No rigorous activity. Continue during the splint to the right middle finger with dressings and do not remove the Steri-Strips just reinforced the dressings if they become soiled and follow-up with primary care provider Follow-up with primary care provider this week and discuss possible neurology consultation Continue with Tylenol and Ultram Follow-up with orthopedics Dr. Todd outpatient Continue using your walker at all times while walking and ambulating Discharge Disposition: HOME SELF-CARE
== END 2022-07-08 13:53 | disposition home or self-care (01) ==
LOC: EC 01:31 → 6NMEDSUR 02:50
PROVIDERS: ADMIT Hospitalist; ATTEND Hospitalist
DX: M54.50 Low back pain, unspecified (principal); S61.212A Laceration without foreign body of right middle finger without damage to nail, initial encounter; R42 Dizziness and giddiness; R53.1 Weakness; I10 Essential (primary) hypertension; Z98.1 Arthrodesis status; M19.90 Unspecified osteoarthritis, unspecified site; E78.5 Hyperlipidemia, unspecified; G47.00 Insomnia, unspecified; K57.30 Diverticulosis of large intestine without perforation or abscess without bleeding; K80.20 Calculus of gallbladder without cholecystitis without obstruction; K44.9 Diaphragmatic hernia without obstruction or gangrene; W01.0XXA Fall on same level from slipping, tripping and stumbling without subsequent striking against object, initial encounter; Y92.009 Unspecified place in unspecified non-institutional (private) residence as the place of occurrence of the external cause; E66.9 Obesity, unspecified; F41.9 Anxiety disorder, unspecified; R26.2 Difficulty in walking, not elsewhere classified; Z68.32 Body mass index [BMI] 32.0-32.9, adult; Z79.82 Long term (current) use of aspirin; Z79.02 Long term (current) use of antithrombotics/antiplatelets; Z79.899 Other long term (current) drug therapy; Z91.048 Other nonmedicinal substance allergy status; Z90.710 Acquired absence of both cervix and uterus; Z96.653 Presence of artificial knee joint, bilateral; Z98.42 Cataract extraction status, left eye; Z98.41 Cataract extraction status, right eye; Z87.39 Personal history of other diseases of the musculoskeletal system and connective tissue; Z90.49 Acquired absence of other specified parts of digestive tract; Z98.890 Other specified postprocedural states; Z82.49 Family history of ischemic heart disease and other diseases of the circulatory system; Z80.0 Family history of malignant neoplasm of digestive organs
CPT/HCPCS: 99285; 93005; 97162; 97530; 97166; 80053; 83735; 84100; 84484; 85025; 81001; 74176; G0378 ×3

== ENCOUNTER 2024-01-07 20:01 | Inpatient (IN) | payer MEDICARE, BC ==
--- NOTE | 2024-01-07 20:21 | CT ---
EXAMINATION TYPE: CT brain wo con DATE OF EXAM: 01/07/2024 COMPARISON: None HISTORY: Left side weakness x [address] DLP: 1158.4 mGycm Automated exposure control for dose reduction was used. Findings: The ventricles, basal cisterns and sulci over the convexities are within normal limits and there is n o mass effect or shift of midline structures. 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 There is mild calcification of the basal ganglia. There is no acute intra or extra-axial hemorrhage. The posterior fossa including the brainstem, fourth ventricle and cerebellar pontine angles appear no rmal. Intraorbital contents appear normal and symmetric. Visualized paranasal sinuses and mastoid air cells are well aerated. The calvarium is intact. IMPRESSION: 1. No acute bleed or mass effect. 2. Mild senescent changes
--- NOTE | 2024-01-07 20:44 | CT ---
EXAMINATION TYPE: CT angio head neck DATE OF EXAM: 01/07/2024 HISTORY: Left side weakness x 30 minutes COMPARISON: None FINDINGS: The brachiocephalic origins are widely patent and no significant stenosis. There is no significant stenosis of the common or internal carotid arteries within the neck. There is no stenosis of the vertebral arteries. Intracranially, there is no stenosis, segmental occlusion, sizable aneurysm sac or vascular malformat ion. IMPRESSION:. No significant abnormality seen. NASCET criteria was used in interpretation of this exam? exam?
[2024-01-07 20:51] LABS: Basophils # (A) 0.1 k/uL (0-0.2); Basophils % (A) 1 %; Eosinophils # (A) 0.2 k/uL (0-0.7); Eosinophils % (A) 3 %; HCT 42.2 % (34.0-46.0); HGB 13.5 gm/dL (11.4-16.0); Lymphocytes # (A) 1.9 k/uL (1.0-4.8); Lymphocytes % (A) 26 %; MCH 31.8 pg (25.0-35.0); MCV 99.4 fL (80.0-100.0); Mean Platelet Volume 9.3; Monocytes # (A) 0.7 k/uL (0-1.0); Monocytes % (A) 9 %; Neutrophils # (A) 4.3 k/uL (1.3-7.7); Neutrophils % (A) 60 %; Platelet Count 246 k/uL (150-450); RBC 4.24 m/uL (3.80-5.40); WBC 7.2 k/uL (3.8-10.6)
--- NOTE | 2024-01-07 21:05 | ED ---
General Adult HPI - General Chief complaint: Neuro Symptoms/Deficit Stated complaint: Stroke Time Seen by Provider: 01/07/24 20:02 Source: patient, EMS, RN notes reviewed, old records reviewed Mode of arrival: EMS Limitations: no limitations - History of Present Illness Initial comments: 88-year-old female presenting for evaluation of left-sided weakness, left facial droop, and slurred speech. Symptoms began abruptly 30 minutes prior to arrival. They had improved during transport and were resolved upon arrival. No headache. No fever. Initial NIH of 0. Patient taken immediately to CT as a stroke activation. - Related Data Home Medications Medication Instructions Recorded Confirmed Aspirin [Adult Low Dose Aspirin EC] 81 mg PO DAILY 02/02/18 01/07/24 Losartan Potassium [Cozaar] 100 mg PO DAILY 02/02/18 01/07/24 amLODIPine [Norvasc] 2.5 mg PO HS 02/02/18 01/07/24 atenoloL [Tenormin] 50 mg PO HS 02/02/18 01/07/24 Cbd Oil 1 dose PO BID 10/14/19 01/07/24 Gabapentin [Neurontin] 100 mg PO BID 10/14/19 01/07/24 Temazepam [Restoril] 15 mg PO HS PRN 10/14/19 01/07/24 traMADol HCL [Ultram] 50 mg PO Q8H PRN 10/14/19 01/07/24 Latanoprost [Latanoprost 0.005%] 1 drop BOTH EYES HS 07/06/22 01/07/24 Pantoprazole [Protonix] 40 mg PO HS 07/06/22 01/07/24 Rosuvastatin [Crestor] 20 mg PO MOTUWETHFR@2100 07/06/22 01/07/24 Timolol 0.5% Ophth Soln [Timoptic 1 drop BOTH EYES BID 07/06/22 01/07/24 0.5% Ophth Soln] Ubidecarenone [Coenzyme Q10] 200 mg PO DAILY 07/06/22 01/07/24 Nitroglycerin Sl Tabs [Nitrostat] 0.4 mg SL Q5M PRN 01/07/24 01/07/24 Previous Rx's Medication Instructions Recorded Meclizine [Antivert] 25 mg PO TID PRN #90 tab 10/18/19 Acetaminophen [Tylenol] 650 mg PO Q6H PRN #0 07/08/22 Allergies Allergy/AdvReac Type Severity Reaction Status Date / Time perfume AdvReac Dyspnea Verified 01/07/24 20:42 Review of Systems ROS Statement: Those systems with pertinent positive or pertinent negative responses have been documented in the HPI. ROS Other: All systems not noted in ROS Statement are negative. Past Medical History Past Medical History: Hyperlipidemia, Hypertension, Osteoarthritis (OA) Additional Past Medical History / Comment(s): spinal stenosis status post lumbar decompression and fusion in 2018 which had gone on to do well History of Any Multi-Drug Resistant Organisms: None Reported Past Surgical History: Appendectomy, Back Surgery, Hysterectomy, Joint Replacement Additional Past Surgical History / Comment(s): rectocele,cystocele, [place] knee replacement, [place] cataract surgery, Lumbar laminectomy, colonoscopy was less than 5 years ago with no polyps. Additional Past Anesthesia/Blood Transfusion Reaction / Comment(s): "takes a little while to come out of anesthesia" Past Psychological History: Anxiety Smoking Status: Never smoker Past Alcohol Use History: None Reported Past Drug Use History: None Reported - Past Family History Mother Additional Family Medical History / Comment(s): Other at age 56 from a heart aneurysm Father Family Medical History: Cancer Additional Family Medical History / Comment(s): Father at age 63 from liver cancer. Brother(s) Family Medical History: Coronary Artery Disease (CAD) Additional Family Medical History / Comment(s): The patient has a brother that at age 37 from coronary artery disease or cardiac problem. She has 1 b rother that at 3 years of age. Sister(s) Family Medical History: Coronary Artery Disease (CAD) Additional Family Medical History / Comment(s): Patient has one sister that is with history of coronary artery disease and CABG. One sister is alive at age 95 with history of coronary artery disease and CABG. Son(s) Additional Family Medical History / Comment(s): Patient has 2 sons and 1 daughter with history of hypertension. General Exam Limitations: no limitations General appearance: alert, in no apparent distress Head exam: Present: atraumatic, normocephalic Eye exam: Present: normal appearance, PERRL ENT exam: Present: normal exam Neck exam: Present: normal inspection Respiratory exam: Present: normal lung sounds bilaterally. Absent: respiratory distress, wheezes Cardiovascular Exam: Present: regular rate, normal rhythm GI/Abdominal exam: Present: soft. Absent: distended, tenderness, guarding Extremities exam: Present: normal inspection, normal capillary refill. Absent: pedal edema Neurological exam: Present: alert, oriented X3, CN II-XII intact. Absent: motor sensory deficit (NIH is 0) Psychiatric exam: Present: normal affect, normal mood Skin exam: Present: warm, dry, intact Course Vital Signs 01/07/24 20:01 Temperature 98.1 F Pulse Rate 67 Respiratory 20 Rate Blood Pressure 112/95 O2 Sat by Pulse 97 Oximetry Medical Decision Making - Medical Decision Making Was pt. sent in by a medical professional or institution (, PA, DOCUMENTATION BILLING CLERK, urgent care, hospital, or prison...) When possible be specific @ -No Did you speak to anyone other than the patient for history (EMS, parent, family, police, friend...)? What history was obtained from this source @Yes, paramedics Did you review nursing and triage notes (agree or disagree)? Why? @ -I reviewed and agree with nursing and triage notes Were old charts reviewed (outside hosp., previous admission, EMS record, old EKG, old radiological studies, urgent care reports/EKG's, prison records)? Report findings @ -No old charts were reviewed Differential CVA Ischemic stroke, hemorrhagic stroke, brain tumor, atypical migraine, Wernicke's encephalopathy, seizure, multiple sclerosis, meningitis, encephalitis, hypoglycemia, Guillain-Pierre, electrolytes disturbance, myasthenia gravis.... This is not meant to be an all-inclusive list EKG interpreted by me (3pts min.). @ -EKG: Sinus rhythm with first-degree AV block rate of 62, DC interval 222, QRS duration 93, QTc 416 X-rays interpreted by me (1pt min.). @Chest x-ray negative for acute cardiopulmonary disease CT interpreted by me (1pt min.). @ -CT and CT angiography is negative for acute findings U/S interpreted by me (1pt. min.). @ -None done What testing was considered but not performed or refused? (CT, X-rays, U/S, labs)? Why? @ -None What meds were considered but not given or refused? Why? @ -None Did you discuss the management of the patient with other professionals (professionals i.e. Dr., PA, DOCUMENTATION BILLING CLERK, lab, RT, psych nurse, social services specialist, grinder set up operator external, teacher, chief development officer, case making machine operator)? Give summary @ -Patient was a stroke activation, case discussed with Dr. Landry at the onset. Was smoking cessation discussed for >3mins.? @ -No Was critical care preformed (if so, how long)? @ -yes 35 min Were there social determinants of health that impacted care today? How? (Homelessness, low income, unemployed, alcoholism, drug addiction, transportation, low edu. Level, literacy, decrease access to med. care, correction, rehab)? @ -No Was there de-escalation of care discussed even if they declined (Discuss DNR or withdrawal of care, Hospice)? DNR status @ -No What co-morbidities impacted this encounter? (DM, HTN, Smoking, COPD, CAD, Cancer, CVA, ARF, Chemo, Hep., AIDS, mental health diagnosis, sleep apnea, morbid obesity)? @ -Hypertension Was patient admitted / discharged? Hospital course, mention meds given and route, prescriptions, significant lab abnormalities, going to OR and other pertinent info. @ -88-year-old female with stroke symptoms, resolved prior to arrival. Sympt oms consistent with TIA. Workup in the emergency department is unremarkable. Patient given aspirin. She will be admitted for further stroke evaluation. Case discussed with Dr. Aviles who will admit. Undiagnosed new problem with uncertain prognosis? @ -No Drug Therapy requiring intensive monitoring for toxicity (Heparin, Nitro, Insulin, Cardizem)? @ -No Were any procedures done? @ -No Diagnosis/symptom? @ -TIA Acute, or Chronic, or Acute on Chronic? @Acute Uncomplicated (without systemic symptoms) or Complicated (systemic symptoms)? @ -Default Side effects of treatment? @ -No Exacerbation, Progression, or Severe Exacerbation? @ -No Poses a threat to life or bodily function? How? (Chest pain, [place], [place], pneumonia, PE, COPD, DKA, ARF, appy, cholecystitis, CVA, Diverticulitis, Homicidal, Suicidal, threat to staff... and all critical care pts) @ -Yes, CVA - Lab Data Result diagrams: 01/07/24 20:26 01/07/24 21:00 Lab Results 01/07/24 01/07/24 01/07/24 Range/Units 20:26 20:26 21:00 WBC 7.2 (3.8-10.6) k/uL RBC 4.24 (3.80-5.40) m/uL Hgb 13.5 (11.4-16.0) gm/dL Hct 42.2 (34.0-46.0) % MCV 99.4 (80.0-100.0) fL MCH 31.8 (25.0-35.0) pg MCHC 32.0 (31.0-37.0) g/dL RDW 13.0 (11.5-15.5) % Plt Count 246 (150-450) k/uL MPV 9.3 Neutrophils % 60 % Lymphocytes % 26 % Monocytes % 9 % Eosinophils % 3 % Basophils % 1 % Neutrophils # 4.3 (1.3-7.7) k/uL Lymphocytes # 1.9 (1.0-4.8) k/uL Monocytes # 0.7 (0-1.0) k/uL Eosinophils # 0.2 (0-0.7) k/uL Basophils # 0.1 (0-0.2) k/uL PT 11.4 (10.0-12.5) sec INR 1.1 (<1.2) APTT 20.3 L (22.0-30.0) sec Sodium 138 (137-145) mmol/L Potassium 4.7 (3.5-5.1) mmol/L Chloride 107 (98-107) mmol/L Carbon Dioxide 25 (22-30) mmol/L Anion Gap 6 mmol/L BUN 24 H (7-17) mg/dL Creatinine 0.74 (0.52-1.04) mg/dL Est GFR (CKD-EPI)AfAm 85 (>60 ml/min/1.73 sqM) Est GFR (CKD-EPI)NonAf 74 (>60 ml/min/1.73 sqM) Glucose 85 (74-99) mg/dL Calcium 9.0 (8.4-10.2) mg/dL Total Bilirubin 0.8 (0.2-1.3) mg/dL AST 26 (14-36) U/L ALT 11 (4-34) U/L Alkaline Phosphatase 54 (38-126) U/L Creatine Kinase 64 (30-135) U/L Troponin I (0.000-0.034) ng/mL Total Protein 6.6 (6.3-8.2) g/dL Albumin 3.8 (3.5-5.0) g/dL 01/07/24 Range/Units 21:00 WBC (3.8-10.6) k/uL RBC (3.80-5.40) m/uL Hgb (11.4-16.0) gm/dL Hct (34.0-46.0) % MCV (80.0-100.0) fL MCH (25.0-35.0) pg MCHC (31.0-37.0) g/dL RDW (11.5-15.5) % Plt Count (150-450) k/uL MPV Neutrophils % % Lymphocytes % % Monocytes % % Eosinophils % % Basophils % % Neutrophils # (1.3-7.7) k/uL Lymphocytes # (1.0-4.8) k/uL Monocytes # (0-1.0) k/uL Eosinophils # (0-0.7) k/uL Basophils # (0-0.2) k/uL PT (10.0-12.5) sec INR (<1.2) APTT (22.0-30.0) sec Sodium (137-145) mmol/L Potassium (3.5-5.1) mmol/L Chloride (98-107) mmol/L Carbon Dioxide (22-30) mmol/L Anion Gap mmol/L BUN (7-17) mg/dL Creatinine (0.52-1.04) mg/dL Est GFR (CKD-EPI)AfAm (>60 ml/min/1.73 sqM) Est GFR (CKD-EPI)NonAf (>60 ml/min/1.73 sqM) Glucose (74-99) mg/dL Calcium (8.4-10.2) mg/dL Total Bilirubin (0.2-1.3) mg/dL AST (14-36) U/L ALT (4-34) U/L Alkaline Phosphatase (38-126) U/L Creatine Kinase (30-135) U/L Troponin I <0.012 (0.000-0.034) ng/mL Total Protein (6.3-8.2) g/dL Albumin (3.5-5.0) g/dL Critical Care Time Critical Care Time: Yes Total Critical Care Time: 35 Disposition Clinical Impression: Transient cerebral ischemia Disposition: ADMITTED IP TO THIS HOSP Condition: Stable Is patient prescribed a controlled substance at d/c from ED?: No Referrals: Mehul Ruiz MD [Primary Care Provider] - 1-2 days Time of Disposition: 22:06
[2024-01-07 21:18] LABS: ALT 11 U/L (4-34); African American GFR (CKD) 85 (>60 ml/min/1.73 sqM); Albumin 3.8 g/dL (3.5-5.0); Anion Gap 6 mmol/L; Blood Urea Nitrogen 24 mg/dL (7-17); Carbon Dioxide 25 mmol/L (22-30); Chloride 107 mmol/L (98-107); Creatine Kinase 64 U/L (30-135); Glucose 85 mg/dL (74-99); Non-African American GFR(CKD) 74 (>60 ml/min/1.73 sqM); Sodium 138 mmol/L (137-145); Total Bilirubin 0.8 mg/dL (0.2-1.3); Total Protein 6.6 g/dL (6.3-8.2)
--- NOTE | 2024-01-07 21:19 | XR ---
EXAMINATION TYPE: XR chest 1V portable DATE OF EXAM: 01/07/2024 COMPARISON: 10/14/2019 HISTORY: CVA TECHNIQUE: Single frontal view of the chest is obtained. FINDINGS: The exam is limited by the portable technique. The lungs are clear. There is no pleural effusion or pneumothorax. The pulmonary vasculature is not congested. The heart size is likely normal for this technique. The osseous structures are grossly intact. IMPRESSION: Limited portable technique with grossly no acute cardiopulmonary disease.
[2024-01-07 21:25] LABS: AST 26 U/L (14-36); Alkaline Phosphatase 54 U/L (38-126); Potassium 4.7 mmol/L (3.5-5.1)
[2024-01-07 21:44] LABS: INR 1.1 (<1.2); Partial Thromboplastin Time 20.3 sec (22.0-30.0); Prothrombin Time 11.4 sec (10.0-12.5)
[2024-01-07] MEDS: SODIUM CHLORIDE 0.9% 1,000 ML IV SCH (22:19)
[2024-01-07] MEDS: ASPIRIN 325 MG TAB PO STA (22:20)
[2024-01-07] MEDS ORDERED: MECLIZINE 25 MG TAB PO PRN (22:57)
[2024-01-08] MEDS: ACETAMINOPHEN TAB 325 MG TAB PO PRN (03:16)
[2024-01-08] MEDS: GABAPENTIN 100 MG CAP PO SCH (08:18)
[2024-01-08] MEDS: VALSARTAN 160 MG TAB PO SCH (08:18)
[2024-01-08] MEDS: ASPIRIN 81 MG PO SCH (08:18)
[2024-01-08] MEDS: NON FORMULARY DRUG (Ubidecarenone [Coenzyme Q10] 200 MG Capsule) PO SCH (08:20)
--- NOTE | 2024-01-08 08:35 | P.HPIM ---
History of Present Illness H&P Date: 01/08/24 HISTORY OF PRESENT ILLNESS: 88-year-old Patient on well-known for over 25 years active medical history of hypertension, hyperlipidemia, atherosclerotic heart disease, chronic lower back pain, chronic kidney disease, previous history of TIA and CVA, severe osteoart hritis, chronic anemia, recurrent UTI, arrhythmia, chronic neuropathy, abnormal balance and gait patient chronic osteoarthritis. Patient was seen in the office last few weeks was having recurrent headache MRI of the brain for headache memory and balance was done apparently did not show any major abnormality more than small vessel disease only. Patient right pickup performed at 7:00 in the evening found the left side to be weak, she ended up calling her son and talk to him telling him that her left side is weak will be stable we asked her to call 911 while he is driving to meet for the emergency room. Patient had weakness of total 1 to 2 hours, by the time She seen EMT still having slight weakness and through her transportation her symptoms had resolved completely by the time she arrived to the emergency department she was back to normal. Patient ended up going for CAT scan of the brain showed no significant abnormality. Mild change consistent with small vessel disease mostly. CTA shows no significant stenosis of the common internal carotid within the neck there is no stenosis of the vertebral artery no stenosis intracranially no segmental occlusion sizable aneurysm or vascular malformation was found. EKG on presentation showed sinus rhythm with no sign of A-fib, laboratory value shows normal CBC, chemistry, troponin. Patient was diagnosed with TIA admitted to the hospital will be seeing neurology, review MRI of the brain was done recently carotid ultrasound echocardiogram will be done and watch patient on social worker clinical to make sure there is no arrhythmia or A-fib of any type. REVIEW OF SYSTEMS: CONSTITUTIONAL: Well-developed no acute respiratory distress. EYES: No icterus sclerae, no conjunctivitis. EARS, NOSE, MOUTH, THROAT, and FACE: No sore throat, lymphadenopathy, carotid bruits or deformity. RESPIRATORY: No SOB cough or wheezes. CARDIOVASCULAR: Right PND orthopnea no palpitation or angina. GASTROINTESTINAL: No Abd pain, Nausea or vomiting, no Diarrhea or constipation, No GI Bleed, no distention or masses. GENITOURINARY: Negative for Hematuria or recurrent UTI with no kidney stone no hematuria. INTEGUMENT/BREAST: Generalized muscle and joint pain. Chronic lower back pain. HEMATOLOGIC/LYMPHATIC: Negative for bleed or purpura. MUSCULOSKELTAL: Negative for Myalgia or arthralgia. NEURLOGICAL: TIA with slight abnormal balance and gait no blurred vision no dizziness no weakness left anymore. BEHAVIORAL/PSYCH: Negative. ENDOCRINE: Negative. PHYSICAL EXAMINATION: General Appearance: Alert, cooperative, no distress, appears stated age. Neck HEENT: Supple, no lymphadenopathy, no thyroid enlargement, no carotid bruits. Lungs: Clear to auscultation without crackles or wheezes no rhonchi, no deformity. Chest Wall: Chest wall normal expansion with deep inspiration no tenderness and no deformity was found on exam, no costochondral pain or discomfort. Heart: Regular rate and rhythm, S1, S2 normal, no murmur, rub or gallop. Back: Quite scoliosis with mild discomfort lower back area with slight curvature with mild arthritis no rash. Abdomen: Soft, non-tender, bowel sounds active all four quadrants, no masses, no organomegaly. Extremities: Extremities normal, atraumatic, no cyanosis or edema. Pulses: 2+ and symmetric. Skin: Skin color, texture, tugor normal, no rashes or lesions. Neurologic: Alert oriented x3 cranial nerves II through XII intact, no motor deficit, had mild abnormal balance and gait mostly arthritis base. ASSESSMENT AND PLAN: _TIA/CVA: Patient's symptoms resolved which make this TIA mostly, no explanation to why it happened with testing including CAT scan of the brain with CTA EKG are all negative, patient be seen neurology, continue antiplatelet agent along with aspirin at least for the next 2 weeks. Patient might benefit from longer-term heart monitor such as 5 days heart monitor echocardiogram will be done initially with bubble study to make sure there is no PFO or any other abnormality can explain her TIA. _Hypertension: Remain on Tenormin 50 mg at bedtime, amlodipine 2.5 mg losartan 100 mg daily continue medication try to keep systolic blood pressure [id number]. Pulse rate has been running slightly low at slow cannot use beta-monica titrate calcium channel monica with amlodipine up to 5 mg losartan can be switched to valsartan up to 160 mg twice a day will use hydralazine 25 mg as needed for syst olic above 140 or diastolic above 88. 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 _Severe headache with combination of either trigeminal neuralgia or occipital neuralgia, her MRI was negative patient would benefit probably from titrating her gabapentin little bit higher when she was started on gabapentin the office visit for the purpose of the trigeminal neuralgia patient might not be able to tolerate higher dose. _Hyperlipidemia: Still on rosuvastatin 20 mg a day averaging target LDL below 70. _Chronic neuropathy: Still have slight effect on the lower extremity most of it from her chronic lower back problems and spinal stenosis but will continue using gabapentin 100 mg twice a day for now. _Chronic lower back pain: With severe spinal stenosis had laminectomy and decompression of the L4-5, L5-S1 back in 2018 continue to have slight residual lower back pain along with mild neuropathy. _Atherosclerotic heart disease with PTCA and stent of the mid LAD with 2 drug- eluting stent back in 2009 2020: Still seeing cardiology on regular basis and still on beta-monica, statin, aspirin and ARB. _Severe GERD: Continue pantoprazole 40 mg a day. _Chronic positional vertigo: Patient continued to be symptomatic every so often using meclizine 12.5 mg 3 times a day as needed. _GI prophylaxis: Patient is on pantoprazole. _DVT prophylaxis: Knee-high GAUDENCIO hose and early mobilization. CODE STATUS: Full code. Admit patient to the inpatient service for 1-2 night stay. Past Medical History Past Medical History: Hyperlipidemia, Hypertension, Osteoarthritis (OA) Additional Past Medical History / Comment(s): spinal stenosis status post lumbar decompression and fusion in 2018 which had gone on to do well History of Any Multi-Drug Resistant Organisms: None Reported Past Surgical History: Appendectomy, Back Surgery, Hysterectomy, Joint Replacement Additional Past Surgical History / Comment(s): rectocele,cystocele, [place] knee replacement, [place] cataract surgery, Lumbar laminectomy, colonoscopy was less than 5 years ago with no polyps. Heart cath with stent with Dr. Kunz about 2 years ago (2021) Additional Past Anesthesia/Blood Transfusion Reaction / Comment(s): "takes a little while to come out of anesthesia" Smoking Status: Never smoker - Past Family History Mother Additional Family Medical History / Comment(s): Other at age 56 from a heart aneurysm Father Family Medical History: Cancer Additional Family Medical History / Comment(s): Father at age 63 from liver cancer. Brother(s) Family Medical History: Coronary Artery Disease (CAD) Additional Family Medical History / Comment(s): The patient has a brother that at age 37 from coronary artery disease or cardiac problem. She has 1 brother that at 3 years of age. Sister(s) Family Medical History: Coronary Artery Disease (CAD) Additional Family Medical History / Comment(s): Patient has one sister that is with history of coronary artery disease and CABG. One sister is alive at age 95 with history of coronary artery disease and CABG. Son(s) Additional Family Medical History / Comment(s): Patient has 2 sons and 1 daughter with history of hypertension. Medications and Allergies Home Medications Medication Instructions Recorded Confirmed Type Aspirin [Adult Low Dose Aspirin EC] 81 mg PO DAILY 02/02/18 01/07/24 History Losartan Potassium [Cozaar] 100 mg PO DAILY 02/02/18 01/07/24 History amLODIPine [Norvasc] 2.5 mg PO HS 02/02/18 01/07/24 History atenoloL [Tenormin] 50 mg PO HS 02/02/18 01/07/24 History Cbd Oil 1 dose PO BID 10/14/19 01/07/24 History Gabapentin [Neurontin] 100 mg PO BID 10/14/19 01/07/24 History Temazepam [Restoril] 15 mg PO HS PRN 10/14/19 01/07/24 History traMADol HCL [Ultram] 50 mg PO Q8H PRN 10/14/19 01/07/24 History Meclizine [Antivert] 25 mg PO TID PRN #90 tab 10/18/19 01/07/24 Rx Latanoprost [Latanoprost 0.005%] 1 drop BOTH EYES HS 07/06/22 01/07/24 History Pantoprazole [Protonix] 40 mg PO HS 07/06/22 01/07/24 History Rosuvastatin [Crestor] 20 mg PO MOTUWETHFR@2100 07/06/22 01/07/24 History Timolol 0.5% Ophth Soln [Timoptic 1 drop BOTH EYES BID 07/06/22 01/07/24 History 0.5% Ophth Soln] Ubidecarenone [Coenzyme Q10] 200 mg PO DAILY 07/06/22 01/07/24 History Acetaminophen [Tylenol] 650 mg PO Q6H PRN #0 07/08/22 01/07/24 Rx Nitroglycerin Sl Tabs [Nitrostat] 0.4 mg SL Q5M PRN 01/07/24 01/07/24 History Allergies Allergy/AdvReac Type Severity Reaction Status Date / Time perfume AdvReac Dyspnea Verified 01/07/24 20:42 Physical Exam Vitals: Vital Signs Temp Pulse Pulse Resp BP BP Pulse Ox 01/08/24 03:41 18 01/08/24 03:22 98.5 F 58 L 18 176/76 95 01/08/24 02:30 52 L 15 158/70 95 01/08/24 02:00 59 L 18 169/68 95 01/08/24 01:30 55 L 15 168/66 94 L 01/08/24 01:00 51 L 18 169/65 95 01/08/24 00:30 52 L 15 169/68 96 01/08/24 00:00 51 L 18 169/68 96 01/07/24 23:30 55 L 22 169/68 96 01/07/24 23:00 62 20 158/67 97 01/07/24 22:30 61 17 169/68 96 01/07/24 22:00 58 L 17 168/65 97 01/07/24 21:30 56 L 18 95 01/07/24 21:00 56 L 15 112/95 97 01/07/24 20:30 61 15 112/95 95 01/07/24 20:16 96 01/07/24 20:01 98.1 F 67 20 112/95 97 Intake and Output 01/07/24 01/07/24 01/08/24 14:59 22:59 06:59 Intake Total 540 Balance 540 Intake: Oral 540 Other: Voiding Method Toilet # Voids 1 Weight 80.739 kg 80.739 kg Results CBC & Chem 7: 01/07/24 20:26 01/07/24 21:00 Labs: Abnormal Lab Results - Last 24 Hours (Table) 01/07/24 01/07/24 Range/Units 20:26 21:00 APTT 20.3 L (22.0-30.0) sec BUN 24 H (7-17) mg/dL Thrombosis Risk Factor Assmnt - Choose All That Apply Any of the Below Risk Factors Present?: Yes Each Factor Represents 1 point: Obesity (BMI >25) Other Risk Factors: Yes Each Risk Factor Represents 3 Points: Age 75 years or older, History of DVT/PE Other congenital or acquired thrombophilia - If yes, enter type in comment: No Thrombosis Risk Factor Assessment Total Risk Factor Score: 7 Thrombosis Risk Factor Assessment Level: High Risk
[2024-01-08] MEDS: TIMOLOL 0.5% OPHTH DROPS 5 ML BTL BOTH EYES SCH (08:56)
[2024-01-08] MEDS ORDERED: LOSARTAN 50 MG TAB PO SCH (09:00)
[2024-01-08] MEDS ORDERED: ASPIRIN 325 MG TAB PO SCH (09:00)
--- NOTE | 2024-01-08 09:22 | US ---
EXAMINATION TYPE: US carotid duplex BILAT DATE OF EXAM: 01/08/2024 COMPARISON: CTA: 01/07/24 CLINICAL INDICATION: Female, 88 years old with history of CVA; CVA TECHNIQUE: Carotid duplex ultrasound examination. Indirect Doppler criteria was utilized. FINDINGS: EXAM MEASUREMENTS: RIGHT: Peak Systolic Velocity (PSV) cm/sec ----- Right CCA: 55.1 ----- Right ICA: 93.2 ----- Right ECA: 100 ICA/CCA ratio: 1.7 RIGHT: End Diastole cm/sec ----- Right CCA: 12.1 ----- Right ICA: 30.0 ----- Right ECA: 14.3 LEFT: Peak Systolic Velocity (PSV) cm/sec ----- Left CCA: 72.3 ----- Left ICA: 95.6 ----- Left ECA: 63.6 ICA/CCA ratio: 1.3 LEFT: End Diastole cm/sec ----- Left CCA: 18.8 ----- Left ICA: 21.4 ----- Left ECA: 7.7 VERTEBRALS (direction of flow): Right Vertebral: Antegrade Left Vertebral: Antegrade Rhythm: Normal DECISION SUPPORT MANAGER NOTES: No significantly elevated velocities seen. Bilateral ICA's appear tortuous IMPRESSION: Less than 50% stenosis of the bilateral carotid bifurcations. Criteria for Assigning % of Stenosis / Diameter reduction (Estimation based on the indirect measurements of the internal carotid artery velocities (ICA PSV). 1. Normal (no stenosis)=ICA PSV < 125 cm/s: ratio < 2.0: ICA EDV<40 cm/s. 2. Less than 50% stenosis=ICA PSV < 125 cm/s: ratio < 2.0: ICA EDV<40 cm/s. 3. 50 to 69% stenosis=ICA PSV of 125 to 230 cm/s: ration 2.0 ? 4.0: ICA EDV 40-100 cm/s. 4. Greater than 70% stenosis to near occlusion= ICA PSV > 230 cm/s: ratio > 4.0: ICA EDV > 100 cm/s. 5. Near occlusion= ICA PSV velocities may be low or undetectable: variable ratio and ICA EDV. 6. Total occlusion=unable to detect flow.
--- NOTE | 2024-01-08 09:46 | CA ---
Transthoracic Echo Report Name: Dayami Chen Age: 88 Gender: F : 1935 Exam Date: 01/08/2024 07:35 Exam Location: [facility] Ht (in): 62 Wt (lb): 178 Ordering Physician: Dung Gray MD Attending/Referring Phys: [id number], Isaac Braided [employer] Assembler Mary Ann Arnold RDCS Procedure CPT: Indications: Thrombus Cardiac Hx: Technical Quality: Fair Contrast 1: Total Dose (mL): Contrast 2: Total Dose (mL): MEASUREMENTS (Male / Female) Normal Values 2D ECHO LV Diastolic Diameter PLAX 4.4 cm 4.2 - 5.9 / 3.9 - 5.3 cm LV Systolic Diameter PLAX 2.7 cm IVS Diastolic Thickness 0.8 cm 0.6 - 1.0 / 0.6 - 0.9 cm LVPW Diastolic Thickness 0.9 cm 0.6 - 1.0 / 0.6 - 0.9 cm LV Relative Wall Thickness 0.4 RV Internal Dim ED PLAX 2.9 cm LVOT Diameter 2.0 cm LV Diastolic Volume MOD BP 83.1 cm??? 67 - 155 / 56 - 104 cm??? LV Systolic Volume MOD BP 30.0 cm??? 22 - 58 / 19 - 49 cm??? LV Ejection Fraction MOD BP 63.9 % >= 55 % LV Cardiac Index MOD BP 1528.4 cm???/min???m??? LV Diastolic Volume MOD 4C 97.8 cm??? LV Systolic Volume MOD 4C 33.3 cm??? LV Ejection Fraction MOD 4C 66.0 % LV Cardiac Index MOD 4C 1855.8 cm???/min???m??? LV Diastolic Length 4C 8.1 cm LV Systolic Length 4C 6.1 cm LV Diastolic Volume MOD 2C 67.2 cm??? LV Systolic Volume MOD 2C 25.5 cm??? LV Ejection Fraction MOD 2C 62.1 % LV Cardiac Index MOD 2C 1198.7 cm???/min???m??? LV Diastolic Length 2C 7.7 cm LV Systolic Length 2C 6.5 cm LA Volume 54.9 cm??? 18 - 58 / 22 - 52 cm??? LA Volume Index 28.7 cm???/m??? 16 - 28 cm???/m??? DOPPLER AV Peak Velocity 194.8 cm/s AV Peak Gradient 15.2 mmHg AV Mean Velocity 119.8 cm/s AV Mean Gradient 6.7 mmHg AV Velocity Time Integral 45.4 cm LVOT Peak Velocity 115.5 cm/s LVOT Peak Gradient 5.3 mmHg LVOT Velocity Time Integral 26.8 cm LVOT Stroke Volume 84.1 cm??? LVOT Stroke Volume Index 46.2 ml/m??? LVOT Cardiac Index 2417.5 cm???/min???m??? AV Area Cont Eq vti 1.9 cm??? AV Area Cont Eq pk 1.9 cm??? MV Area PHT 3.2 cm??? Mitral E Point Velocity 95.3 cm/s Mitral A Point Velocity 108.5 cm/s Mitral E to A Ratio 0.9 MV Deceleration Time 233.9 ms PV Peak Velocity 85.2 cm/s PV Peak Gradient 2.9 mmHg FINDINGS Left Ventricle Left ventricular ejection fraction is estimated at 65-70 %. Left ventricular cavity size normal. Left ventricular wall thickness normal. No obvious regional wall motion abnormalities. Right Ventricle Normal right ventricular size and function. Unable to estimate the right ventricular systolic pressure. Right Atrium Normal right atrial size. Left Atrium Mildly increased left atrial volume. Mitral Valve Structurally normal mitral valve. No evidence for mitral valve prolapse. No mitral stenosis. Trace mitral regurgitation. Aortic Valve Trileaflet aortic valve. No aortic valve stenosis or regurgitation. Tricuspid Valve Structurally normal tricuspid valve. No tricuspid stenosis. No tricuspid regurgitation. Pulmonic Valve Pulmonic valve not well visualized. No pulmonic stenosis. No pulmonic regurgitation. Pericardium Trace pericardial effusion. Aorta Normal size aortic root and proximal ascending aorta. CONCLUSIONS Hyperdynamic LV with an ejection fraction between 65-70% No significant valvular abnormalities Trace pericardial effusion Previewed by: Dr. Alexy Camarena MD (Electronically Signed) Final Date: 08 Jan 2024 09:45
[2024-01-08 10:25] LABS: Chol/HDL Ratio 3.13 Ratio; LDL Cholesterol,Calculated 63.3 mg/dL (0.0-131.0)
[2024-01-08] MEDS ORDERED: amLODIPine 2.5 MG TAB PO SCH (21:00)
[2024-01-08] MEDS ORDERED: atenoloL 50 MG TAB PO SCH (21:00)
[2024-01-08] MEDS: ATORVASTATIN 40 MG TAB PO SCH (21:54)
[2024-01-08] MEDS: ATORVASTATIN 80 MG TAB PO SCH (22:04)
[2024-01-08] MEDS: CLOPIDOGREL 75 MG TAB PO SCH (22:04)
[2024-01-08] MEDS: atenoloL 25 MG TAB PO SCH (22:05)
[2024-01-08] MEDS: LATANOPROST 0.005% OPHTH DROPS 2.5 ML BTL BOTH EYES SCH (22:05)
[2024-01-08] MEDS: PANTOPRAZOLE 40 MG TABLET PO SCH (22:05)
[2024-01-08] MEDS: amLODIPine 5 MG TAB PO SCH (22:05)
--- NOTE | 2024-01-08 23:45 | P.CNNES ---
History of Present Illness Consult date: 01/08/24 Requesting physician: Dung Gray Reason for Consult: TIA History of Present Illness: Patient is a 88-year-old right-handed female with history of hypertension came to the hospital by ambulance yesterday at 8:01 PM. Patient's symptoms started last night at 7:15 PM when she called her son that she was not feeling right. When she was talking to her son, her speech was slurred and he could not understand what she was saying, although patient speaks very clearly at baseline. Patient also mentioned that her left hand was tingling and left arm was "lifeless". She could not hold the TV remote control, and it would drop down. Her legs were okay and she could walk. Family states that there was some left facial droop noted in the ER. Patient's son told her to call 911 and patient herself called 911 and it was difficult for EMS to understand her as well. As per EMS flowsheet, when they arrived, patient was sitting in her chair when she developed acute left-sided arm and leg weakness with slurred speech. Patient does not have prior history of stroke. Patient was alert and orient x 4 with GCS of 15. Denied any chest pain, shortness of breath, or abdominal pain. No facial droop noted. Patient had left arm drift. Patient's vitals at the scene was blood pressure 189/135, pulse rate 64 respiration 18 saturation 96%, blood sugar 99. Repeat blood pressure was 187/152. Vital signs on arrival blood pressure 168/65 pulse rate 67, temperature 98.1. Blood test shows normal CBC, PT PTT. CMP is normal. Troponin negative. CK normal. CT head showed no acute bleed or mass effect. Mild senescent changes. I personally reviewed CT head, agree with the findings. Chest x-ray limited portable technique with grossly no acute cardiopulmonary disease. EKG showed sinus rhythm with first-degree AV block. Patient's symptoms resolved shortly after she arrived to the ER. Patient's NIH stroke scale was 0 when she arrived to the ER. She was given aspirin. Patient's son, [id number] are also present today. All of them provided with detailed history. Patient apparently had undergone an MRI of the brain couple months ago, which revealed small vessel disease" minis CVA". Patient never has any history of clinical strokes or TIA in the past. The MRI was performed because patient has been having some paresthesias involving top of the head and the upper occipital region for about couple months. She gets paresthesias. It hurts about 3/10 but is more aggravating, like something movi ng under the skin. She states that it feels like her scalp is raised. At times feels pounding, aggravating like a pin in her head. It comes and goes, but is present most of the time. Patient is on gabapentin 100 mg twice daily. Patient states that about 1-1/2 years ago, she did hit the back of her head to the door and suffered from some minor head and neck injury. Suspect occipital neuralgia triggered from that. Patient has history of hypertension, dyslipidemia with elevated triglycerides. No diabetes. Patient is a non-smoker. She drinks alcohol very little. Patient does take aspirin 81 mg daily. And Crestor 20 mg. Review of Systems Constitutional: Denies chills, Denies fever Eyes: denies blurred vision, denies diplopia, denies pain Ears: deny: decreased hearing, ear discharge Ears, nose, mouth and throat: Reports headache, Denies vertigo Cardiovascular: Denies chest pain, Denies shortness of breath Respiratory: Denies cough, Denies excessive sputum, Denies hemoptysis Gastrointestinal: Denies abdominal pain, Denies diarrhea, Denies nausea, Denies vomiting Musculoskeletal: Denies myalgias, Denies neck pain Integumentary: Denies pruritus, Denies rash Neurological: Reports as per HPI Psychiatric: Denies anxiety, Denies depression Past Medical History Past Medical History: Hyperlipidemia, Hypertension, Osteoarthritis (OA) Additional Past Medical History / Comment(s): spinal stenosis status post lumbar decompression and fusion in 2018 which had gone on to do well History of Any Multi-Drug Resistant Organisms: None Reported Past Surgical History: Appendectomy, Back Surgery, Hysterectomy, Joint Replacement Additional Past Surgical History / Comment(s): rectocele,cystocele, [place] knee replacement, [place] cataract surgery, Lumbar laminectomy, colonoscopy was less than 5 years ago with no polyps. Heart cath with stent with Dr. Kunz about 2 years ago (2021) Additional Past Anesthesia/Blood Transfusion Reaction / Comment(s): "takes a little while to come out of anesthesia" Smoking Status: Never smoker - Past Family History Mother Additional Family Medical History / Comment(s): Other at age 56 from a h eart aneurysm Father Family Medical History: Cancer Additional Family Medical History / Comment(s): Father at age 63 from liver cancer. Brother(s) Family Medical History: Coronary Artery Disease (CAD) Additional Family Medical History / Comment(s): The patient has a brother that at age 37 from coronary artery disease or cardiac problem. She has 1 brother that at 3 years of age. Sister(s) Family Medical History: Coronary Artery Disease (CAD) Additional Family Medical History / Comment(s): Patient has one sister that is with history of coronary artery disease and CABG. One sister is alive at age 95 with history of coronary artery disease and CABG. Son(s) Additional Family Medical History / Comment(s): Patient has 2 sons and 1 daughter with history of hypertension. Medications and Allergies Home Medications Medication Instructions Recorded Confirmed Type Aspirin [Adult Low Dose Aspirin EC] 81 mg PO DAILY 02/02/18 01/07/24 History Losartan Potassium [Cozaar] 100 mg PO DAILY 02/02/18 01/07/24 History amLODIPine [Norvasc] 2.5 mg PO HS 02/02/18 01/07/24 History atenoloL [Tenormin] 50 mg PO HS 02/02/18 01/07/24 History Cbd Oil 1 dose PO BID 10/14/19 01/07/24 History Gabapentin [Neurontin] 100 mg PO BID 10/14/19 01/07/24 History Temazepam [Restoril] 15 mg PO HS PRN 10/14/19 01/07/24 History traMADol HCL [Ultram] 50 mg PO Q8H PRN 10/14/19 01/07/24 History Meclizine [Antivert] 25 mg PO TID PRN #90 tab 10/18/19 01/07/24 Rx Latanoprost [Latanoprost 0.005%] 1 drop BOTH EYES HS 07/06/22 01/07/24 History Pantoprazole [Protonix] 40 mg PO HS 07/06/22 01/07/24 History Rosuvastatin [Crestor] 20 mg PO MOTUWETHFR@2100 07/06/22 01/07/24 History Timolol 0.5% Ophth Soln [Timoptic 1 drop BOTH EYES BID 07/06/22 01/07/24 History 0.5% Ophth Soln] Ubidecarenone [Coenzyme Q10] 200 mg PO DAILY 07/06/22 01/07/24 History Acetaminophen [Tylenol] 650 mg PO Q6H PRN #0 07/08/22 01/07/24 Rx Nitroglycerin Sl Tabs [Nitrostat] 0.4 mg SL Q5M PRN 01/07/24 01/07/24 History Allergies Allergy/AdvReac Type Severity Reaction Status Date / Time perfume AdvReac Dyspnea Verified 01/07/24 20:42 Physical Examination - Vital Signs Vital Signs: Vital Signs Temp Pulse Pulse Resp BP BP Pulse Ox 01/08/24 20:00 64 18 162/70 95 01/08/24 18:24 98 18 187/82 98 01/08/24 17:52 85 20 170/84 98 01/08/24 16:00 85 20 140/85 98 01/08/24 15:00 68 16 135/68 98 01/08/24 13:00 68 16 145/68 98 01/08/24 11:00 85 16 159/76 98 01/08/24 10:00 68 16 148/85 95 01/08/24 08:00 98 F 61 16 186/92 99 01/08/24 03:41 18 01/08/24 03:22 98.5 F 58 L 18 176/76 95 01/08/24 02:30 52 L 15 158/70 95 01/08/24 02:00 59 L 18 169/68 95 01/08/24 01:30 55 L 15 168/66 94 L 01/08/24 01:00 51 L 18 169/65 95 01/08/24 00:30 52 L 15 169/68 96 01/08/24 00:00 51 L 18 169/68 96 01/07/24 23:30 55 L 22 169/68 96 01/07/24 23:00 62 20 158/67 97 01/07/24 22:30 61 17 169/68 96 01/07/24 22:00 58 L 17 168/65 97 01/07/24 21:30 56 L 18 95 01/07/24 21:00 56 L 15 112/95 97 Intake and Output 01/08/24 01/08/24 01/08/24 06:59 14:59 22:59 Intake Total 540 Balance 540 Intake: Oral 540 Other: Voiding Method Toilet # Voids 1 Weight 80.739 kg Patient is an elderly female, very pleasant, in no acute distress. Patient is alert awake oriented to time place and person. Speech and language functions are normal. Patient can name and repeat very well. No aphasia or dysarthria. Attention, concentration and fund of knowledge is adequate. On cranial nerve examination, pupils are equal, round and reacting to light, visual powell are full on confrontation, with no neglect on double simultaneous stimulation. Extraocular muscles are intact with no nystagmus. Face is symmetric, tongue protrudes to the midline. Palatal elevation and sensation normal, hearing and shoulder shrug normal, facial sensation normal. On muscle strength testing, there is no pronator drift and the strength is normal in arms and legs distally and proximally. Deep tendon reflexes are overall hypoactive but symmetric, plantars downgoing. Patient has evidence of bilateral knee replacement. Sensory to touch is equal with no neglect on double simultaneous stimulation. Cerebellar function showed no ataxia for [id number] testing. No dysdiad ochokinesia. No ataxia for [id number] testing on either side. Tone and bulk of muscles normal. Gait deferred.. On general examination, there is no carotid bruit or murmur, S1-S2 audible. Chest is clear on consultation. Abdomen is soft nontender. No organomegaly, bowel sounds present. Peripheral pulses are present. No peripheral edema. Results - Laboratory Findings CBC and BMP: 01/07/24 20:26 01/07/24 21:00 Abnormal Lab Findings: Abnormal Labs 01/07/24 01/07/24 01/08/24 20:26 21:00 08:06 APTT 20.3 L BUN 24 H Triglycerides 204.00 H VLDL Cholesterol, Calc 40.80 H Assessment and Plan Assessment: * Probable TIA, manifesting with slurred speech, left arm numbness and weakness, and transient left facial droop. Symptoms have completely resolved shortly after she arrived to the ER. Current NIH stroke scale is 0. * Hypertension * Hyperlipidemia * Possible occipital neuralgia. Plan: Patient had presented with TIA. All symptoms have resolved. Patient underwent TIA workup as below. 2-D echo revealed hyperdynamic left ventricle with an EF between 65 to 70%. L eft ventricular wall thickness normal. No obvious regional wall motion abnormalities. Mildly increased left atrial volume. No significant valvular abnormalities. CTA head and neck showed: No significant abnormality seen. Carotid Doppler, revealed less than 50% stenosis of bilateral carotid bifurcations. Antegrade flow in both vertebral arteries. Fasting a.m. lipid panel cholesterol 153, LDL 63, HDL 48 and triglycerides 204. Hemoglobin A1c Optimize control of blood pressure. Patient was taking aspirin 81 mg daily prior to arrival. Patient will be started on Plavix 75 mg daily. Patient will continue dual antiplatelet medication for 21 days, then stop aspirin and continue Plavix after. Patient also has symptoms of possible occipital neuralgia/neuropathy. Patient gets paresthesias and some pain in the upper occipital region and top of the head. Patient is on very low-dose Neurontin 100 mg twice daily. We will increase dose of Neurontin to 200 mg twice daily. If needed, the dose can be further increased to 300 mg 3 times daily. Check ESR, CRP, B12, folate. Neuro checks every shift. Telemetry monitoring rule out any arrhythmia PT, OT, speech therapy DVT prophylaxis: Heparin 5000 units subcu every 12 hours Neurology will continue to follow. Thank you for the consult.
[2024-01-09] MEDS: hydrALAZINE HCL 25 MG TAB PO PRN (03:00)
[2024-01-09] MEDS: HEPARIN SODIUM,PORCINE 5,000 UNIT/ML 1 ML VIAL SQ SCH (07:50)
[2024-01-09] MEDS: GABAPENTIN 100 MG CAP PO SCH (07:50)
[2024-01-09 08:28] LABS: C Reactive Protein <0.5 mg/dL (<1.0)
--- NOTE | 2024-01-09 13:37 | P.PN ---
Subjective Progress Note Date: 01/09/24 88-year-old Patient on well-known for over 25 years active medical history of hypertension, hyperlipidemia, atherosclerotic heart disease, chronic lower back pain, chronic kidney disease, previous history of TIA and CVA, severe osteoarthritis, chronic anemia, recurrent UTI, arrhythmia, chronic neuropathy, abnormal balance and gait patient chronic osteoarthritis. Patient was seen in the office last few weeks was having recurrent headache MRI of the brain for headache memory and balance was done apparently did not show any major abnormality more than small vessel disease only. Patient right pickup performed at 7:00 in the evening found the left side to be weak, she ended up calling her son and talk to him telling him that her left side is weak will be stable we asked her to call 911 while he is driving to meet for the emergency room. Patient had weakness of total 1 to 2 hours, by the time She seen EMT still having slight weakness and through her transportation her symptoms had resolved completely by the time she arrived to the emergency department she was back to normal. Patient ended up going for CAT scan of the brain showed no significant abnormality. Mild change consistent with small vessel disease mostly. CTA shows no significant stenosis of the common internal carotid within the neck there is no stenosis of the vertebral artery no stenosis intracranially no segmental occlusion sizable aneurysm or vascular malformation was found. EKG on presentation showed sinus rhythm with no sign of A-fib, laboratory value shows normal CBC, chemistry, troponin. Patient was diagnosed with TIA admitted to the hospital will be seeing neurology, review MRI of the brain was done recently carotid ultrasound echocardiogram will be done and watch patient on cardiac exercise specialist to make sure there is no arrhythmia or A-fib of any type. 01/08. Patient seen and examined. Family was at the bedside, patient stated she was seeing spiders on the waite this morning and also felt as if the moldings on the waite were moving, later the symptoms resolved. Family stated that the patient not been sleeping well REVIEW OF SYSTEMS: CONSTITUTIONAL: No fever, no malaise,. CARDIOVASCULAR: No chest pain, no palpitations, no syncope. PULMONARY: No shortness of breath, no cough, GASTROINTESTINAL: No diarrhea, no nausea, no vomiting, no abdominal pain. NEUROLOGICAL: No headaches, no weakness, PHYSICAL EXAMINATION: GENERAL: The patient is alert and oriented x3, not in any acute distress. Well developed, well nourished. HEENT: Pupils are round and equally reacting to light. EOMI. No scleral icterus. No conjunctival pallor. Normocephalic, atraumatic. No pharyngeal erythema. No thyromegaly. CARDIOVASCULAR: S1 and S2 present. No murmurs, rubs, or gallops. PULMONARY: Chest is clear to auscultation, no wheezing or crackles. ABDOMEN: Soft, nontender, nondistended, normoactive bowel sounds. No palpable organomegaly. MUSCULOSKELETAL: No joint swelling or deformity. EXTREMITIES: No cyanosis, clubbing, or pedal edema. NEUROLOGICAL: Gross neurological examination did not reveal any focal deficits. SKIN: No rashes. Assessment and plan _TIA/CVA: Monitor vital sign Monitor CBC Monitor CMP Continue neurochecks Continue aspirin and Plavix for 21 days followed by Plavix thereafter Neurology following _Hypertension: Continue amlodipine, atenolol, valsartan bradycardia: Improved with lower dose of Tenormin _Severe headache with combination of either trigeminal neuralgia or occipital neuralgia, her MRI was negative .neurology increased dose of Neurontin to 200 mg twice daily _Hyperlipidemia: Still on rosuvastatin 20 mg a day averaging target LDL below 70. _Chronic neuropathy: Still have slight effect on the lower extremity most of it from her chronic lower back problems and spinal stenosis continue Neurontin _Chronic lower back pain: With severe spinal stenosis had laminectomy and decompression of the L4-5, L5-S1 back in 2018 continue to have slight residual lower back pain along with mild neuropathy. _Atherosclerotic heart disease with PTCA and stent of the mid LAD with 2 drug- eluting stent back in 2009 2020: Still seeing cardiology on regular basis and still on beta-monica, statin, aspirin and ARB. _Severe GERD: Continue pantoprazole 40 mg a day. Insomnia; added sleep aids _Chronic positional vertigo: Patient continued to be symptomatic every so often using meclizine 12.5 mg 3 times a day as needed. _GI prophylaxis: Patient is on pantoprazole. _DVT prophylaxis: Knee-high GAUDENCIO hose and early mobilization. Labs and medication were reviewed.. Continue same treatment. Continue with sym ptomatic treatment. Resume home medication. Monitor labs and vitals. DVT and GI prophylaxis. Further recommendations as per clinical course of the patient Dictation was produced using [employer] dictation software. please excuse any grammatical, word or spelling errors. Objective - Vital Signs Vital signs: Vital Signs Temp 97.9 F 01/09/24 07:41 Pulse 64 01/09/24 07:41 Resp 16 01/09/24 07:41 BP 168/78 01/09/24 07:41 Pulse Ox 98 01/09/24 07:41 FiO2 Intake & Output 01/08/24 01/09/24 01/09/24 18:59 06:59 18:59 Other: Voiding Method Toilet # Voids 1 - Labs CBC & Chem 7: 01/07/24 20:26 01/07/24 21:00
[2024-01-09] MEDS: traZODone HCL 50 MG TAB PO SCH (21:55)
[2024-01-10 00:15] VITALS: RESP 16
--- NOTE | 2024-01-10 09:48 | P.PN ---
Subjective Progress Note Date: 01/09/24 Patient was seen for a follow-up. Patient was doing well, but she woke up from sleep with tingling in the fingers of the left hand. It went away shortly. No other associated neurological symptoms. At present she is fine. No headaches. Objective - Vital Signs Vital signs: Vital Signs Temp 97.9 F 01/09/24 07:41 Pulse 70 01/09/24 11:30 Resp 16 01/09/24 11:30 BP 141/67 01/09/24 11:30 Pulse Ox 97 01/09/24 11:30 FiO2 Intake & Output 01/08/24 01/09/24 01/09/24 18:59 06:59 18:59 Other: Voiding Method Toilet # Voids 1 - Exam Examination completely nonfocal. Mentation normal. - Labs CBC & Chem 7: 01/07/24 20:26 01/07/24 21:00 Assessment and Plan Assessment: * Probable TIA, manifesting with slurred speech, left arm numbness and weakness, and transient left facial droop. Symptoms have completely resolved shortly after she arrived to the ER. Current NIH stroke scale is 0. * Patient noticed tingling of the left hand fingers on waking up. Symptoms resolved shortly after. Uncertain if compression phenomenon from laying on the left, or TIA. * Hypertension * Hyperlipidemia * Possible occipital neuralgia. Plan: Patient had presented with TIA. All symptoms have resolved. Patient underwent TIA workup as below. Patient had some recurrence of symptoms in the left hand. We will observe overnight. 2-D echo revealed hyperdynamic left ventricle with an EF between 65 to 70%. Left ventricular wall thickness normal. No obvious regional wall motion abnormalities. Mildly increased left atrial volume. No significant valvular abnormalities. CTA head and neck showed: No significant abnormality seen. Carotid Doppler, revealed less than 50% stenosis of bilateral carotid bifurcations. Antegrade flow in both vertebral arteries. Fasting a.m. lipid panel cholesterol 153, LDL 63, HDL 48 and triglycerides 204. Patient on high intensity statins with Lipitor 80 mg daily. Patient used to be on Lipitor 40 mg Thursday. Hemoglobin A1c Optimize control of blood pressure. Blood pressure well-controlled. Most recent 141/67. Patient was taking aspirin 81 mg daily prior to arrival. Patient will be started on Plavix 75 mg daily. Patient will continue dual antiplatelet med ication for 21 days, then stop aspirin and continue Plavix after. Patient also has symptoms of possible occipital neuralgia/neuropathy. Patient gets paresthesias and some pain in the upper occipital region and top of the head. Patient is on very low-dose Neurontin 100 mg twice daily. We will inc rease dose of Neurontin to 200 mg twice daily. If needed, the dose can be further increased to 300 mg 3 times daily. ESR 22, CRP <0.5, B12 1388, folate 12.70. All normal. Neuro checks every shift. Telemetry monitoring rule out any arrhythmia PT, OT, speech therapy DVT prophylaxis: Heparin 5000 units subcu every 12 hours Observe overnight.
--- NOTE | 2024-01-10 13:38 | P.PN ---
Subjective Progress Note Date: 01/10/24 88-year-old Patient on well-known for over 25 years active medical history of hypertension, hyperlipidemia, atherosclerotic heart disease, chronic lower back pain, chronic kidney disease, previous history of TIA and CVA, severe osteoarthritis, chronic anemia, recurrent UTI, arrhythmia, chronic neuropathy, abnormal balance and gait patient chronic osteoarthritis. Patient was seen in the office last few weeks was having recurrent headache MRI of the brain for headache memory and balance was done apparently did not show any major abnormality more than small vessel disease only. Patient right pickup performed at 7:00 in the evening found the left side to be weak, she ended up calling her son and talk to him telling him that her left side is weak will be stable we asked her to call 911 while he is driving to meet for the emergency room. Patient had weakness of total 1 to 2 hours, by the time She seen EMT still having slight weakness and through her transportation her symptoms had resolved completely by the time she arrived to the emergency department she was back to normal. Patient ended up going for CAT scan of the brain showed no significant abnormality. Mild change consistent with small vessel disease mostly. CTA shows no significant stenosis of the common internal carotid within the neck there is no stenosis of the vertebral artery no stenosis intracranially no segmental occlusion sizable aneurysm or vascular malformation was found. EKG on presentation showed sinus rhythm with no sign of A-fib, laboratory value shows normal CBC, chemistry, troponin. Patient was diagnosed with TIA admitted to the hospital will be seeing neurology, review MRI of the brain was done recently carotid ultrasound echocardiogram will be done and watch patient on hospital monitor to make sure there is no arrhythmia or A-fib of any type. 5. Patient seen and examined. Family was at the bedside, patient stated she was seeing spiders on the waite this morning and also felt as if the moldings on the waite were moving, later the symptoms resolved. Family stated that the patient not been sleeping well 5. Patient seen and examined. Patient this morning was complaining of dizziness, Diovan was held secondary to blood pressure being on the lower side, patient was getting Diovan twice a day, will change it to once daily starting tomorrow. REVIEW OF SYSTEMS: CONSTITUTIONAL: No fever, no malaise,. CARDIOVASCULAR: No chest pain, no palpitations, no syncope. PULMONARY: No shortness of breath, no cough, GASTROINTESTINAL: No diarrhea, no nausea, no vomiting, no abdominal pain. NEUROLOGICAL: No headaches, no weakness, PHYSICAL EXAMINATION: GENERAL: The patient is alert and oriented x3, not in any acute distress. Well developed, well nourished. HEENT: Pupils are round and equally reacting to light. EOMI. No scleral icterus. No conjunctival pallor. Normocephalic, atraumatic. No pharyngeal erythema. No thyromegaly. CARDIOVASCULAR: S1 and S2 present. No murmurs, rubs, or gallops. PULMONARY: Chest is clear to auscultation, no wheezing or crackles. ABDOMEN: Soft, nontender, nondistended, normoactive bowel sounds. No palpable organomegaly. MUSCULOSKELETAL: No joint swelling or deformity. EXTREMITIES: No cyanosis, clubbing, or pedal edema. NEUROLOGICAL: Gross neurological examination did not reveal any focal deficits. SKIN: No rashes. Assessment and plan _TIA/CVA: Monitor vital sign Monitor CBC Monitor CMP Continue neurochecks Continue aspirin and Plavix for 21 days followed by Plavix thereafter Neurology following _Hypertension: Continue amlodipine, atenolol,. Dose of Diovan changed to once daily bradycardia: Improved with lower dose of Tenormin _Severe headache with combination of either trigeminal neuralgia or occipital neuralgia, her MRI was negative .neurology increased dose of Neurontin to 200 mg twice daily _Hyperlipidemia: Still on rosuvastatin 20 mg a day averaging target LDL below 7 0. _Chronic neuropathy: Still have slight effect on the lower extremity most of it from her chronic lower back problems and spinal stenosis continue Neurontin _Chronic lower back pain: With severe spinal stenosis had laminectomy and decompression of the L4-5, L5-S1 back in 2018 continue to have slight residual lower back pain along with mild neuropathy. _Atherosclerotic heart disease with PTCA and stent of the mid LAD with 2 drug- eluting stent back in 2009 2020: Still seeing cardiology on regular basis and still on beta-monica, statin, aspirin and ARB. _Severe GERD: Continue pantoprazole 40 mg a day. Insomnia; added sleep aids _Chronic positional vertigo: Patient continued to be symptomatic every so often using meclizine 12.5 mg 3 times a day as needed. _GI prophylaxis: Patient is on pantoprazole. _DVT prophylaxis: Knee-high GAUDENCIO hose and early mobilization. Labs and medication were reviewed.. Continue same treatment. Continue with symptomatic treatment. Resume home medication. Monitor labs and vitals. DVT and GI prophylaxis. Further recommendations as per clinical course of the patient Dictation was produced using [employer] dictation software. please excuse any grammatical, word or spelling errors. Objective - Vital Signs Vital signs: Vital Signs Temp 97.9 F 01/09/24 07:41 Pulse 64 01/10/24 09:07 Resp 16 01/10/24 09:07 BP 105/63 01/10/24 09:07 Pulse Ox 96 01/10/24 09:07 FiO2 Intake & Output 01/09/24 01/10/24 01/10/24 18:59 06:59 18:59 Intake Total 118 Balance 118 Intake: Oral 118 Other: Voiding Method Toilet # Voids 1 1 - Labs CBC & Chem 7: 01/07/24 20:26 01/07/24 21:00 Labs: Abnormal Lab Results - Last 24 Hours (Table) 01/09/24 Range/Units 07:27 Vitamin B12 1388.0 H (200.0-944.0) pg/mL
[2024-01-10] MEDS: CLOPIDOGREL 75 MG TAB PO STA (14:21)
[2024-01-10] MEDS: traMADol 50 MG TAB PO PRN (20:46)
[2024-01-10] MEDS: MELATONIN 5 MG TABLET PO PRN (20:46)
[2024-01-10 21:07] VITALS: TEMP 98
--- NOTE | 2024-01-11 01:10 | P.PN ---
Subjective Progress Note Date: 01/10/24 Patient was seen for a follow-up. Apparently patient developed numbness of all 4 fingers of the left hand that occurred from 6 PM to midnight. This morning it was gone. No other focal symptoms with it. Patient has been feeling dizzy, particularly walking, which was felt to be related to significantly drop in the blood pressure. Objective - Vital Signs Vital signs: Vital Signs Temp 98.0 F 01/10/24 20:45 Pulse 58 L 01/11/24 00:08 Resp 16 01/11/24 00:08 BP 129/73 01/11/24 00:08 Pulse Ox 91 L 01/11/24 00:08 FiO2 Intake & Output 01/10/24 01/10/24 01/11/24 06:59 18:59 06:59 Intake Total 236 Balance 236 Intake: Oral 236 Other: Voiding Method Toilet Toilet # Voids 1 1 1 # Bowel Movements 1 1 - Exam Examination completely nonfocal. Mentation normal. No pronator drift. No ataxia, sensation normal, cranial nerves normal. - Labs CBC & Chem 7: 01/07/24 20:26 01/07/24 21:00 Assessment and Plan Assessment: * Probable TIA, manifesting with slurred speech, left arm numbness and weakness, and transient left facial droop. Symptoms have completely resolved shortly after she arrived to the ER. Current NIH stroke scale is 0. * Patient developed numbness of the all 4 fingers of left hand yesterday, that lasted for 6 hours from 6 PM to midnight. Rule out TIA. Rule out symptoms related to hypotension. * Hypertension * Hyperlipidemia * Possible occipital neuralgia. Plan: Patient had presented with TIA. All symptoms have resolved. Patient underwent TIA workup as below. Patient had some recurrence of symptoms in the left hand last night, that lasted for about 6 hours. Given extra loading dose of Plavix 75 mg. Avoid hypotension. Continue Protonix. 2-D echo revealed hyperdynamic left ventricle with an EF between 65 to 70%. Left ventricular wall thickness normal. No obvious regional wall motion abnormalities. Mildly increased left atrial volume. No significant valvular abnormalities. CTA head and neck showed: No significant abnormality seen. Carotid Doppler, revealed less than 50% stenosis of bilateral carotid bifurcations. Antegrade flow in both vertebral arteries. Fasting a.m. lipid panel cholesterol 153, LDL 63, HDL 48 and triglycerides 204. Patient on high intensity statins with Lipitor 80 mg daily. Patient used to be on Lipitor 40 mg Thursday. Hemoglobin A1c Optimize control of blood pressure. Blood pressure well-controlled. Most recent 141/67. Patient was taking aspirin 81 mg daily prior to arrival. Patient will be started on Plavix 75 mg daily. Patient will continue dual antiplatelet medication for 21 days, then stop aspirin and continue Plavix after. Patient also has symptoms of possible occipital neuralgia/neuropathy. Patient gets paresthesias and some pain in the upper occipital region and top of the head. Patient is on very low-dose Neurontin 100 mg twice daily. We will increase dose of Neurontin to 200 mg twice daily. If needed, the dose can be further increased to 300 mg 3 times daily. ESR 22, CRP <0.5, B12 1388, folate 12.70. All normal. Neuro checks every shift. Telemetry monitoring rule out any arrhythmia PT, OT, speech therapy DVT prophylaxis: Heparin 5000 units subcu every 12 hours Observe overnight. Discussed with patient's daughter and primary physician in detail. If remains symptom-free overnight, then may be clear for discharge. Dr. Forest Sheridan starting neurology service for the morning.
[2024-01-11 05:25] VITALS: BP 90/59; PULSE 52
--- NOTE | 2024-01-11 08:06 | P.PN ---
Subjective Progress Note Date: 01/11/24 HISTORY OF PRESENT ILLNESS: 88-year-old Patient on well-known for over 25 years active medical history of hypertension, hyperlipidemia, atherosclerotic heart disease, chronic lower back pain, chronic kidney disease, previous history of TIA and CVA, severe osteoarthritis, chronic anemia, recurrent UTI, arrhythmia, chronic neuropathy, abnormal balance and gait patient chronic osteoarthritis. Patient was seen in the office last few weeks was having recurrent headache MRI of the brain for headache memory and balance was done apparently did not show any major abnormality more than small vessel disease only. Patient right pickup performed at 7:00 in the evening found the left side to be weak, she ended up calling her son and talk to him telling him that her left julio e is weak will be stable we asked her to call 911 while he is driving to meet for the emergency room. Patient had weakness of total 1 to 2 hours, by the time She seen EMT still having slight weakness and through her transportation her symptoms had resolved completely by the time she arrived to the emergency department she was back to normal. Patient ended up going for CAT scan of the brain showed no significant abnormality. Mild change consistent with small vessel disease mostly. CTA shows no significant stenosis of the common internal carotid within the neck there is no stenosis of the vertebral artery no stenosis intracranially no segmental occlusion sizable aneurysm or vascular malformation was found. EKG on presentation showed sinus rhythm with no sign of A-fib, laboratory value shows normal CBC, chemistry, troponin. Patient was diagnosed with TIA admitted to the hospital will be seeing neurology, review MRI of the brain was done recently carotid ultrasound echocardiogram will be done and watch patient on radiation monitor to make sure there is no arrhythmia or A-fib of any type. 01/11/2024: She was kept in the hospital last 2 days because of recurrent slight numbness in the left side without weakness was evaluated by neurology again however did not see the need to repeat testing all over again at this point but to focus on making sure her blood pressure is not low causing hypoperfusion which can explain the symptoms. Also for the severity of her trigeminal neuralgia her gabapentin was increased to 200 mg twice a day which is I believe is a good step to control trigeminal neuralgia at this point. Other than this her vital signs have been stable last 24 hours blood pressure has been under better control has not quite low and pulse ox around 97 percentile. One of the option may be to change her Norvasc to nighttime and losartan to decline might help to reduce slightly side effect of medication. Other option event to cut down her amlodipine to 2.5 mg a day. Atenolol was reduced to 25 mg for better monitor and improved on pulse rate without having to be bradycardic. If patient is doing well today hopefully will be able to send her home to follow-up up as an outpatient. REVIEW OF SYSTEMS: CONSTITUTIONAL: Well-developed no acute respiratory distress. EYES: No icterus sclerae, no conjunctivitis. EARS, NOSE, MOUTH, THROAT, and FACE: No sore throat, lymphadenopathy, carotid bruits or deformity. RESPIRATORY: No SOB cough or wheezes. CARDIOVASCULAR: Right PND orthopnea no palpitation or angina. GASTROINTESTINAL: No Abd pain, Nausea or vomiting, no Diarrhea or constipation, No GI Bleed, no distention or masses. GENITOURINARY: Negative for Hematuria or recurrent UTI with no kidney stone no hematuria. INTEGUMENT/BREAST: Generalized muscle and joint pain. Chronic lower back pain. HEMATOLOGIC/LYMPHATIC: Negative for bleed or purpura. MUSCULOSKELTAL: Negative for Myalgia or arthralgia. NEURLOGICAL: TIA with slight abnormal balance and gait no blurred vision no dizziness no weakness left anymore. BEHAVIORAL/PSYCH: Negative. ENDOCRINE: Negative. PHYSICAL EXAMINATION: General Appearance: Alert, cooperative, no distress, appears stated age. Neck HEENT: Supple, no lymphadenopathy, no thyroid enlargement, no carotid bruits. Lungs: Clear to auscultation without crackles or wheezes no rhonchi, no deformity. Chest Wall: Chest wall normal expansion with deep inspiration no tenderness and no deformity was found on exam, no costochondral pain or discomfort. Heart: Regular rate and rhythm, S1, S2 normal, no murmur, rub or gallop. Back: Quite scoliosis with mild discomfort lower back area with slight curvature with mild arthritis no rash. Abdomen: Soft, non-tender, bowel sounds active all four quadrants, no masses, no organomegaly. Extremities: Extremities normal, atraumatic, no cyanosis or edema. Pulses: 2+ and symmetric. Skin: Skin color, texture, tugor normal, no rashes or lesions. Neurologic: Alert oriented x3 cranial nerves II through XII intact, no motor deficit, had mild abnormal balance and gait mostly arthritis base. ASSESSMENT AND PLAN: _TIA/CVA: Her complete workup came back to be negative but she had another recu rrence of left-sided numbness was kept in the hospital her blood pressure was slightly below could have explained this finding at this point will try to keep her systolic blood pressure at least above 110 no further need for any workup for TIA with exception of longer-term heart monitor to make sure we do not have any major arrhythmia especially A-fib. _Hypertension: Medication was changed to reduce Tenormin to 25 mg a day, amlodipine was increased to 5 mg and valsartan and still at 160 mg daily if blood pressure remain low can probably change her amlodipine back to 2.5 mg a day and try to use valsartan at nighttime still have hydralazine on as-needed basis for systolic above 140 or diastolic above 88 which will even use through her hospitalization. Pulse rate is not too low at this point. Tenormin 25 mg working good. 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 _Trigeminal neuralgia: MRI did not show any major finding severity of the headache will be continued to be treated as trigeminal neuralgia gabapentin was increased to 200 mg twice a day. _Hyperlipidemia: Still on rosuvastatin 20 mg a day averaging target LDL below 70. _Chronic neuropathy: With the increase in gabapentin will help. _Chronic lower back pain: With severe spinal stenosis had laminectomy and decompression of the L4-5, L5-S1 back in 2018 continue to have slight residual lower back pain along with mild neuropathy. _Atherosclerotic heart disease with PTCA and stent of the mid LAD with 2 drug- eluting stent back in 2009 2020: Still seeing cardiology on regular basis and still on beta-monica, statin, aspirin and ARB. _Severe GERD: Continue pantoprazole 40 mg a day. _Chronic positional vertigo: Patient continued to be symptomatic every so often using meclizine 12.5 mg 3 times a day as needed. Prognosis: Good. Discharge planning: Patient is not having any further symptoms we should be able to send her home today follow-up with us as an outpatient. Objective - Vital Signs Vital signs: Vital Signs Temp 98.0 F 01/10/24 20:45 Pulse 52 L 01/11/24 04:53 Resp 16 05/06/24 04:53 BP 90/59 01/11/24 04:53 Pulse Ox 94 L 01/11/24 04:53 FiO2 Intake & Output 01/10/24 01/10/24 01/11/24 06:59 18:59 06:59 Intake Total 236 Balance 236 Intake: Oral 236 Other: Voiding Method Toilet Toilet # Voids 1 1 1 # Bowel Movements 1 1 - Labs CBC & Chem 7: 01/07/24 20:26 01/07/24 21:00
[2024-01-11] MEDS: VALSARTAN 160 MG TAB PO SCH (09:01)
--- NOTE | 2024-01-12 05:36 | P.DS ---
Providers Date of admission: 01/08/24 13:04 Attending physician: Mehul Ruiz Consults: 01/07/24 22:00 Consult Physician Routine Consulting Provider: Alexandra Guy Consult Reason/Comments: TIA Do you want consulting provider notified?: Yes Primary care physician: Mehul Ruiz [facility] Course: HISTORY OF PRESENT ILLNESS: 88-year-old Patient on well-known for over 25 years active medical history of hypertension, hyperlipidemia, atherosclerotic heart disease, chronic lower back pain, chronic kidney disease, previous history of TIA and CVA, severe osteoarthritis, chronic anemia, recurrent UTI, arrhythmia, chronic neuropathy, abnormal balance and gait patient chronic osteoarthritis. Patient was seen in the office last few weeks was having recurrent headache MRI of the brain for headache memory and balance was done apparently did not show any major abnormality more than small vessel disease only. Patient right pickup performed at 7:00 in the evening found the left side to be weak, she ended up calling her son and talk to him telling him that her left side is weak will be stable we asked her to call 911 while he is driving to meet for the emergency room. Patient had weakness of total 1 to 2 hours, by the time She seen EMT still having slight weakness and through her transportation her symptoms had resolved completely by the time she arrived to the emergency department she was back to normal. Patient ended up going for CAT scan of the brain showed no significant abnormality. Mild change consistent with small vessel disease mostly. CTA shows no significant stenosis of the common internal carotid within the neck there is no stenosis of the vertebral artery no stenosis intracranially no segmental occlusion sizable aneurysm or vascular malformation was found. EKG on presentation showed sinus rhythm with no sign of A-fib, laboratory value shows normal CBC, chemistry, troponin. Patient was diagnosed with TIA admitted to the hospital will be seeing neurology, review MRI of the brain was done recently carotid ultrasound echocardiogram will be done and watch patient on cafeteria monitor to make sure there is no arrhythmia or A-fib of any type. 01/11/2024: She was kept in the hospital last 2 days because of recurrent slight numbness in the left side without weakness was evaluated by neurology again however did not see the need to repeat testing all over again at this point but to focus on making sure her blood pressure is not low causing hypoperfusion which can explain the symptoms. Also for the severity of her trigeminal neuralgia her gabapentin was increased to 200 mg twice a day which is I believe is a good step to control trigeminal neuralgia at this point. Other than this her vital signs have been stable last 24 hours blood pressure has been under better control has not quite low and pulse ox around 97 percentile. One of the option may be to change her Norvasc to nighttime and losartan to decline might help to reduce slightly side effect of medication. Other option event to cut down her amlodipine to 2.5 mg a day. Atenolol was reduced to 25 mg for better monitor and improved on pulse rate without having to be bradycardic. If patient is doing well today hopefully will be able to send her home to follow-up up as an outpatient. REVIEW OF SYSTEMS: CONSTITUTIONAL: Well-developed no acute respiratory distress. EYES: No icterus sclerae, no conjunctivitis. EARS, NOSE, MOUTH, THROAT, and FACE: No sore throat, lymphadenopathy, carotid bruits or deformity. RESPIRATORY: No SOB cough or wheezes. CARDIOVASCULAR: Right PND orthopnea no palpitation or angina. GASTROINTESTINAL: No Abd pain, Nausea or vomiting, no Diarrhea or constipation, No GI Bleed, no distention or masses. GENITOURINARY: Negative for Hematuria or recurrent UTI with no kidney stone no hematuria. INTEGUMENT/BREAST: Generalized muscle and joint pain. Chronic lower back pain. HEMATOLOGIC/LYMPHATIC: Negative for bleed or purpura. MUSCULOSKELTAL: Negative for Myalgia or arthralgia. NEURLOGICAL: TIA with slight abnormal balance and gait no blurred vision no dizziness no weakness left anymore. BEHAVIORAL/PSYCH: Negative. ENDOCRINE: Negative. PHYSICAL EXAMINATION: General Appearance: Alert, cooperative, no distress, appears stated age. Neck HEENT: Supple, no lymphadenopathy, no thyroid enlargement, no carotid bruits. Lungs: Clear to auscultation without crackles or wheezes no rhonchi, no deformity. Chest Wall: Chest wall normal expansion with deep inspiration no tenderness and no deformity was found on exam, no costochondral pain or discomfort. Heart: Regular rate and rhythm, S1, S2 normal, no murmur, rub or gallop. Back: Quite scoliosis with mild discomfort lower back area with slight curvature with mild arthritis no rash. Abdomen: Soft, non-tender, bowel sounds active all four quadrants, no masses, no organomegaly. Extremities: Extremities normal, atraumatic, no cyanosis or edema. Pulses: 2+ and symmetric. Skin: Skin color, texture, tugor normal, no rashes or lesions. Neurologic: Alert oriented x3 cranial nerves II through XII intact, no motor def icit, had mild abnormal balance and gait mostly arthritis base. ASSESSMENT AND PLAN: _TIA/CVA: Her complete workup came back to be negative but she had another recurrence of left-sided numbness was kept in the hospital her blood pressure was slightly below could have explained this finding at this point will try to keep her systolic blood pressure at least above 110 no further need for any workup for TIA with exception of longer-term heart monitor to make sure we do not have any major arrhythmia especially A-fib. _Hypertension: Medication was changed to reduce Tenormin to 25 mg a day, amlodipine was increased to 5 mg and valsartan and still at 160 mg daily if blood pressure remain low can probably change her amlodipine back to 2.5 mg a day and try to use valsartan at nighttime still have hydralazine on as-needed basis for systolic above 140 or diastolic above 88 which will even use through her hospitalization. Pulse rate is not too low at this point. Tenormin 25 mg working good. 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 _Trigeminal neuralgia: MRI did not show any major finding severity of the headache will be continued to be treated as trigeminal neuralgia gabapentin was increased to 200 mg twice a day. _Hyperlipidemia: Still on rosuvastatin 20 mg a day averaging target LDL below 70. _Chronic neuropathy: With the increase in gabapentin will help. _Chronic lower back pain: With severe spinal stenosis had laminectomy and decompression of the L4-5, L5-S1 back in 2018 continue to have slight residual lower back pain along with mild neuropathy. _Atherosclerotic heart disease with PTCA and stent of the mid LAD with 2 drug- eluting stent back in 2009 2020: Still seeing cardiology on regular basis and still on beta-monica, statin, aspirin and ARB. _Severe GERD: Continue pantoprazole 40 mg a day. _Chronic positional vertigo: Patient continued to be symptomatic every so often using meclizine 12.5 mg 3 times a day as needed. Prognosis: Good. Discharge planning: Patient is not having any further symptoms we should be able to send her home today follow-up with us as an outpatient. Hospital course: Patient was admitted to the hospitalOn January 07, 2024 for possible TIA/CVA with severe left-sided numbness her symptoms resolved by the time she mated to the emergency department with a ride by EMS: Patient was kept in the hospital see ne urology she had complete workup including CTA echocardiogram, carotid ultrasound and neuroconsultation alternatively fine at the time patient symptom resolved still 01/09/2024 when she developed to have again numbness in the left side no finding at that point with any arrhythmia or any major abnormality neurology decided to keep patient in the hospital for 24 more hours to watch for any further symptoms and any arrhythmia. Patient is asymptomatic with a blood pressure has been fluctuating slightly but initially her pulse rate was slightly below reduce her Tenormin from 50 mg to 25 which has done the pulse rate today 60 and done well. Blood pressure medication were changed her amlodipine was increased to 5 mg and losartan was switched to valsartan 160 mg which will be switched to nighttime patient seems to do well with the current management she is not symptomatic able to ambulate with the use of her walker she does not want to go to SNF or rehab but she will have home care and physical therapy. Patient be ready to be discharged home today January 11, 2024. Time spent on patient discharge was 34 minutes. Patient Condition at Discharge: Stable Plan - Discharge Summary Discharge Rx Participant: No New Discharge Prescriptions: New hydrALAZINE HCL [Apresoline] 25 mg PO QID PRN #60 tab PRN Reason: Blood Pressure - High traZODone HCL [Desyrel] 25 mg PO HS #30 tab Valsartan [Diovan] 160 mg PO DAILY #30 tab Clopidogrel [Plavix] 75 mg PO DAILY #30 tab atenoloL [Tenormin] 25 mg PO HS #30 tab Continue Aspirin [Adult Low Dose Aspirin EC] 81 mg PO DAILY amLODIPine [Norvasc] 2.5 mg PO HS Cbd Oil 1 dose PO BID traMADol HCL [Ultram] 50 mg PO Q8H PRN PRN Reason: Pain Meclizine [Antivert] 25 mg PO TID PRN #90 tab PRN Reason: Vertigo Timolol 0.5% Ophth Soln [Timoptic 0.5% Ophth Soln] 1 drop BOTH EYES BID Latanoprost [Latanoprost 0.005%] 1 drop BOTH EYES HS Acetaminophen [Tylenol] 650 mg PO Q6H PRN #0 PRN Reason: Pain Nitroglycerin Sl Tabs [Nitrostat] 0.4 mg SL Q5M PRN PRN Reason: Chest Pain Pantoprazole [Protonix] 40 mg PO HS Ubidecarenone [Coenzyme Q10] 200 mg PO DAILY Changed Gabapentin [Neurontin] 200 mg PO BID #0 Rosuvastatin [Crestor] 40 mg PO DAILY #0 Discontinued Losartan Potassium [Cozaar] 100 mg PO DAILY atenoloL [Tenormin] 50 mg PO HS Temazepam [Restoril] 15 mg PO HS PRN PRN Reason: Insomnia Discharge Medication List Aspirin [Adult Low Dose Aspirin EC] 81 mg PO DAILY 02/02/18 [History] amLODIPine [Norvasc] 2.5 mg PO HS 02/02/18 [History] Cbd Oil 1 dose PO BID 10/14/19 [History] traMADol HCL [Ultram] 50 mg PO Q8H PRN 10/14/19 [History] Meclizine [Antivert] 25 mg PO TID PRN #90 tab 10/18/19 [Rx] Latanoprost [Latanoprost 0.005%] 1 drop BOTH EYES HS 07/06/22 [History] Pantoprazole [Protonix] 40 mg PO HS 07/06/22 [History] Timolol 0.5% Ophth Soln [Timoptic 0.5% Ophth Soln] 1 drop BOTH EYES BID 07/06/22 [History] Ubidecarenone [Coenzyme Q10] 200 mg PO DAILY 07/06/22 [History] Acetaminophen [Tylenol] 650 mg PO Q6H PRN #0 07/08/22 [Rx] Nitroglycerin Sl Tabs [Nitrostat] 0.4 mg SL Q5M PRN 01/07/24 [History] Clopidogrel [Plavix] 75 mg PO DAILY #30 tab 01/11/24 [Rx] Gabapentin [Neurontin] 200 mg PO BID #0 01/11/24 [Rx] Rosuvastatin [Crestor] 40 mg PO DAILY #0 01/11/24 [Rx] Valsartan [Diovan] 160 mg PO DAILY #30 tab 01/11/24 [Rx] atenoloL [Tenormin] 25 mg PO HS #30 tab 01/11/24 [Rx] hydrALAZINE HCL [Apresoline] 25 mg PO QID PRN #60 tab 01/11/24 [Rx] traZODone HCL [Desyrel] 25 mg PO HS #30 tab 01/11/24 [Rx] Follow up Appointment(s)/Referral(s): Mehul Ruiz MD [Primary Care Provider] - 1-2 days Abelino Kunz MD [STAFF PHYSICIAN] - 1 Week Patient Instructions/Handouts: Transient Ischemic Attack (DC) Discharge Disposition: HOME WITH HOME HEALTH SERVICES
== END 2024-01-11 11:55 | disposition home health service (06) | DRG 948 ==
LOC: EC 20:01 → 3SCARD 22:01 → OBSVTOIN 01-08 13:04 → 3SCARD 01-08 17:36
PROVIDERS: ADMIT Internal Medicine Geriatric Medicine; ATTEND Internal Medicine Geriatric Medicine
DX: R53.1 Weakness (principal); I95.9 Hypotension, unspecified; M19.90 Unspecified osteoarthritis, unspecified site; E11.42 Type 2 diabetes mellitus with diabetic polyneuropathy; E11.22 Type 2 diabetes mellitus with diabetic chronic kidney disease; I25.10 Atherosclerotic heart disease of native coronary artery without angina pectoris; D64.9 Anemia, unspecified; Z87.440 Personal history of urinary (tract) infections; E78.1 Pure hyperglyceridemia; G50.0 Trigeminal neuralgia; I12.9 Hypertensive chronic kidney disease with stage 1 through stage 4 chronic kidney disease, or unspecified chronic kidney disease; R00.1 Bradycardia, unspecified; I44.0 Atrioventricular block, first degree; K21.9 Gastro-esophageal reflux disease without esophagitis; H81.10 Benign paroxysmal vertigo, unspecified ear; G89.29 Other chronic pain; M54.50 Low back pain, unspecified; N18.9 Chronic kidney disease, unspecified; R29.810 Facial weakness; R47.81 Slurred speech; Z79.02 Long term (current) use of antithrombotics/antiplatelets; Z79.82 Long term (current) use of aspirin; Z79.899 Other long term (current) drug therapy; Z80.0 Family history of malignant neoplasm of digestive organs; Z82.49 Family history of ischemic heart disease and other diseases of the circulatory system; Z86.73 Personal history of transient ischemic attack (TIA), and cerebral infarction without residual deficits; Z90.710 Acquired absence of both cervix and uterus; Z95.5 Presence of coronary angioplasty implant and graft; Z96.653 Presence of artificial knee joint, bilateral; Z98.42 Cataract extraction status, left eye; Z98.41 Cataract extraction status, right eye
CPT/HCPCS: 36415; 70450; 70496; 70498; 71045; 80053; 80061; 82550; 82607; 82746; 83036; 84484; 85025; 85610; 85652; 85730; 86140; 93005; 93306; 93880; 99291

== ENCOUNTER → 2024-07-08 | Day surgery (SDC) | payer MEDICARE, BC ==
[~2024-07-08] MED LIST changes: -BACITRACIN 50,000 UNIT, POLYMYXIN B 500,000 UNIT in SODIUM CHLORIDE 0.9% IRRIGATIO 1,00... IRRIGATION ONE; -DEXAMETHASONE SOD PHOSPHATE 10 MG/ML 1 ML VIAL IV ONE; +LIDOCAINE 2% (PF) 20 MG/ML 5 ML VIAL ONE; -MORPHINE SULFATE 2 MG/ML SYRINGE IV PRN; -ONDANSETRON 4 MG/2 ML VIAL IVP ONE; -ONDANSETRON 4 MG/2 ML VIAL IVP PRN; +PROPOFOL 10 MG/ML 20 ML VIAL IV ONE; -ceFAZolin IN SWFI 2 GM/20 ML SYRINGE IVP ONE
[2024-07-08 14:02] VITALS: TEMP 97.6
[2024-07-08] MEDS: IV FLUID CONTINUATION 1,000 ML IV ONE (14:03)
[2024-07-08] MEDS: LACTATED RINGERS 1,000 ML IV SCH (14:04)
--- NOTE | 2024-07-08 15:30 | P.PCN ---
Date of Procedure: 07/08/24 Procedure(s) Performed: BRIEF HISTORY: Patient is a 89-year-old, pleasant, white female scheduled an upper endoscopy as a part evaluation of intermittent dysphagia to solids for the last 1 month duration.. She denies any odynophagia. PROCEDURE PERFORMED: Esophagogastroduodenoscopy with biopsy. PREOPERATIVE DIAGNOSIS: Intermittent dysphagia to solids of 1 month duration. IV sedation per anesthesia. PROCEDURE: After informed consent was obtained, the patient was brought into the endoscopy unit. IV sedation was administered by Anesthesia under continuous monitoring. Initially the Olympus GIF-140 video endoscope was inserted into the mouth. Esophagus intubated without any difficulty. There was evidence of mild cricopharyngeal dysfunction noted. It was gradually advanced into the stomach and duodenum and carefully examined. The bulb and the second part of the duodenum appeared normal. The scope at this time was withdrawn to the stomach, adequately insufflated with air, and upon careful examination, mucosa of the antrum, and mild gastritis. Mucosa of the body, cardia and the fundus appeared normal. The scope was then withdrawn into the esophagus. Mild hiatal hernia noted. The GE junction was located at 39 cm from the incisors. The esophagus appeared normal. There were no erosions or ulcerations seen. The proximal cervical esophagus was carefully examined and upper esophageal sphincter was slightly tight suggestive of cricopharyngeal dysfunction but no evidence of Zenker's diverticulum. Rest of the esophagus appeared normal and and the patient tolerated the procedure well. IMPRESSION: 1. Mild cricopharyngeal dysfunction but no evidence of Zenker's diverticulum or esophageal stricture 2. Small hiatal hernia 3. Mild antral gastric. RECOMMENDATIONS: The findings of this examination were discussed with the patient as well as her family. Follow-up with the biopsy results. She was advised to continue with soft diet. Follow-up in the office if she has worsening symptoms..
[2024-07-08 15:52] VITALS: BP 172/73; PULSE 54; RESP 16
== END ==
LOC: ORWHC2ENDO 12:03
PROVIDERS: ATTEND Internal Medicine Gastroenterology
DX: K29.70 Gastritis, unspecified, without bleeding (principal); K44.9 Diaphragmatic hernia without obstruction or gangrene; I10 Essential (primary) hypertension; E78.5 Hyperlipidemia, unspecified; I25.10 Atherosclerotic heart disease of native coronary artery without angina pectoris; I67.9 Cerebrovascular disease, unspecified; K21.9 Gastro-esophageal reflux disease without esophagitis; F32.A Depression, unspecified; F41.9 Anxiety disorder, unspecified; M54.50 Low back pain, unspecified; Z79.899 Other long term (current) drug therapy
CPT/HCPCS: 43239

== ENCOUNTER → 2024-09-02 | Outpatient (CLI) | payer MEDICARE, BC ==
--- NOTE | 2024-09-07 22:11 | BD ---
EXAMINATION TYPE: Axial Bone Density DATE OF EXAM: 09/02/2024 CLINICAL HISTORY: 89 years old Female. ICD-10 CODE: M81.0 AGE-RELATED OSTEOPOROSIS W/ , Additional H istory: Height: 5 ft 2 in Weight: 160 FRAX RISK QUESTIONS: Alcohol (3 or more units per day): no Family History (Parent hip fracture): no Glucocorticoids (More than 3mos): no (Ex: prednisone, prednisolone, methylprednisolone, dexamethasone, and hydrocortisone). History of Fracture in Adulthood: no Secondary Osteoporosis: 1. Type 1 Diabetes: no 2. Hyperthyroidism: no 3. Menopause before 45: yes 4. Malnutrition: no 5. Chronic liver disease: no Rheumatoid Arthritis: yes Current Tobacco Use: no no RISK FACTORS HISTORY OF: Surgery to Spine/Hip(right/left)/Wrist (right/left): lumbar surg with metal, When: unsure MEDICATIONS: Thyroid Medications: none Osteoporosis Medications: none EXAM MEASUREMENTS: Bone mineral density about the R hip (g/cm2): 0.975 Bone mineral density about the L hip (g/cm2): 0.920 T Score values are as follows: -----R Neck: -0.5 -----L Neck: -0.8 -----R Total: -0.3 -----L Total: -0.5 Z Score values are as follows: -----R Neck: 1.9 -----L Neck: 1.5 -----R Total: 1.9 -----L Total: 1.7 Bone mineral density has: decreased -17.1 % since study of: 2002 Bone mineral density about the L Wrist (g/cm2): 0.454 T Score values are as follows: -----Dist. R+U: -0.4 -----Prox. R+U: -4.4 -----Radius total: -3.6 Z Score values are as follows: -----Dist. R+U: 3.1 -----Prox. R+U: -1.0 -----Radius total: -0.2 first time wrist has been done FRAX%s: The graph provided illustrates a 9.3 % chance for a major osteoporotic fx and a 2.3 % chance for the hips probability for fx in 10 years time. IMPRESSION: Osteoporosis (T Score less than -2.5). There is increased fracture risk and therapy is usually indicated based on age. Re-Screen 1-2 years. NOTE: T-SCORE=SD OF THE YOUNG ADULT MEAN. [facility], , 09/07/2024 10:09 PM
== END | disposition home or self-care (01) ==
LOC: RADMAMWWP 15:17
PROVIDERS: ATTEND Internal Medicine Geriatric Medicine
DX: M81.0 Age-related osteoporosis without current pathological fracture (principal); Z78.0 Asymptomatic menopausal state
CPT/HCPCS: 77080

== ENCOUNTER → 2024-11-03 | Outpatient (CLI) | payer MEDICARE, BC ==
--- NOTE | 2024-11-03 14:21 | MM ---
Reason for Exam: Screening (asymptomatic). Last mammogram was performed 16 year(s) and 2 month(s) ago. Patient History: Menarche at age 13. First Full-Term at age 21. Left ovary removed at age 51. Right ovary removed at age 51. Hysterectomy at age 51. Postmenopausal. Maternal unspecified had breast cancer. Maternal aunt had breast cancer. Sister had breast cancer. Prior Study Comparison: 01/28/2006 Bilateral Screening Mammogram, [facility]. 06/21/2007 Bilateral Screening Mammogram, [facility]. 08/07/2008 Bilateral Screening Mammogram, [facility]. Tissue Density: The breasts are heterogeneously dense, which may obscure small masses. Findings: Analyzed By CAD. Right breast: There is no suspicious group of microcalcifications or new suspicious mass. Benign-appearing calcifications right breast. Left breast: There is no suspicious group of microcalcifications or new suspicious mass. Benign-appearing calcifications left breast. Overall Assessment: Benign, BI-RAD 2 Management: Screening Mammogram of both breasts in [address] [facility] will attempt to contact patient to return for supplemental views and ultrasound if indicated. Patient should continue monthly self-breast exams. A clinical breast exam by your physician is recommended on an annual basis. This exam should not preclude additional follow-up of suspicious palpable abnormalities. Note on Luz Marina scores and lifetime risk: 1. A Luz Marina score greater than 3% is considered moderate risk. If this is the case, consider specialist referral to assess eligibility for a risk reducing agent. 2. If overall lifetime risk for the development of breast cancer is 20% or higher, the patient may qualify for future screening with alternating mammogram and breast MRI. [facility], , 11/03/2024 2:19 PM. Electronically signed and approved by: Dung Shen DO
== END | disposition home or self-care (01) ==
LOC: RADMAMWWP 13:51
PROVIDERS: ATTEND Internal Medicine Geriatric Medicine
DX: Z12.31 Encounter for screening mammogram for malignant neoplasm of breast (principal); R92.333 Mammographic heterogeneous density, bilateral breasts; Z78.0 Asymptomatic menopausal state; Z80.3 Family history of malignant neoplasm of breast
CPT/HCPCS: 77063; 77067